=== PATIENT | female | born 1935 | race Caucasian/White ===

== ENCOUNTER 2020-02-24 13:24 | Outpatient (CLI) | payer OTHER, SELFPAY ==
--- NOTE | 2020-02-29 14:03 | WPDPFTINT ---
PFT Interpretation PFT Interpretation: DOS: 02/24/2020 REQUESTING: Dr. Conner REASON FOR TESTING: Amiodarone use PULMONARY FUNCTION TESTS Results are not reproducible. The patient was not able to exhale for a minimum of 6 seconds on 3 attempts. Spirometry: FEV1 is 105%, normal. FVC is 86%, normal. FEV1% is normal. No bronchodilator was given. Lung volumes: TLC 72% consistent with mild restriction. RV is 56%. There is no air trapping. Normal airway resistance. Diffusion: DLCO is 37% severely decreased. Flow volume loop: Unremarkable. IMPRESSION: Normal spirometry. Mild restrictive pattern based on decreased total lung capacity. Severe diffusion impairment which is the most significant finding. There is no prior test for comparison. Amiodarone can be associated with changes in pulmonary function. Clinical correlation is advised. Alyssa Lemos MD
== END 2020-02-24 13:25 | disposition home or self-care (01) ==
PROVIDERS: PCP Internal Medicine; Visit Provider Internal Medicine Cardiovascular Disease
DX: Z79.899 Other long term (current) drug therapy (principal)
CPT/HCPCS: 94375; 94726; 94729

== ENCOUNTER 2020-04-07 15:12 | Outpatient (CLI) | payer OTHER, SELFPAY ==
--- NOTE | ~2020-04-07 | CT_ITS ---
EXAMINATION: CT chest wo con DATE: 04/07/2020 15:50 INDICATION: Shortness of breath TECHNIQUE: Computed tomography (CT) of the chest was performed without intravenous contrast. The dose -length product was 214.88 mGy-cm. Automated exposure control and iterative reconstruction technique were employed. COMPARISON: Chest x-ray dated 11/19/2017 FINDINGS: Prominent bilateral rosanne, likely enlarged pulmonary arteries, although lymphadenopathy is n ot excluded. Borderline heart size. No significant pleural or pericardial effusion. There is cirrhosi s of the liver with ascites in the upper abdomen. There are nonobstructing right renal stones. There is diffuse atherosclerosis of the aorta and coronary arteries. There are in numerable groundglass and some solid nodules in both lungs with more focal areas of parenchymal consolidation in the right mid dle lobe, lingula and lower lobes, right greater than left. There is bronchiectasis of the lower lobe s. No endobronchial lesions. IMPRESSION: 1. Extensive patchy consolidation of the mid and lower lungs with multiple areas of groundglass and s ub-solid nodularity particularly in the upper lobes. These findings are most likely infectious/inflam matory, although due to the extent of parenchymal abnormality, underlying malignancy is not excluded. 2: Enlarged pulmonary arteries, consistent with pulmonary arterial hypertension. Cannot exclude lymph adenopathy without contrast. 3: Cirrhosis with ascites. 4: Nonobstructing right nephrolithiasis. Reviewed, dictated and finalized at location A. IMPRESSION: 1. Extensive patchy consolidation of the mid and lower lungs with multiple area s of groundglass and sub-solid nodularity particularly in the upper lobes. Thes e findings are most likely infectious/inflammatory, although due to the extent of parenchymal abnormality, underlying malignancy is not excluded. 2: Enlarged pulmonary arteries, consistent with pulmonary arterial hypertension . Cannot exclude lymphadenopathy without contrast. 3: Cirrhosis with ascites. 4: Nonobstructing right nephrolithiasis.
== END 2020-04-07 15:13 | disposition home or self-care (01) ==
LOC: ANHIMG 15:17
PROVIDERS: PCP Internal Medicine; Visit Provider Nurse Practitioner
DX: R06.02 Shortness of breath (principal); R91.8 Other nonspecific abnormal finding of lung field; N20.0 Calculus of kidney; K74.69 Other cirrhosis of liver
CPT/HCPCS: 71250

== ENCOUNTER 2020-05-09 10:59 | Outpatient (CLI) | payer OTHER, SELFPAY ==
[2020-05-09 14:08] LABS: Iron 107 ug/dL (37-170)
[2020-05-09 14:18] LABS: Percent Iron Saturation 31 % (20-50)
[2020-05-13 15:37] LABS: Ceruloplasmin 38 mg/dL (18-53)
[2020-05-16 15:05] LABS: Mitochondrial (M2) Ab (IgG) <=20.0 U (<=20.0)
--- NOTE | 2020-05-18 15:02 | WPDSIXMINUTE ---
Six Minute Walk Six Minute Walk: DOS: 05/09/2020 REQUESTING: Dr. Chema Zuluaga REASON FOR TESTING: dyspnea on exertion SIX MINUTE WALK This test was conducted per ATS guidelines. The patient walked using a cane. The initial saturation was 94% and initial pulse was 57. Saturation dropped to 89% at 200 feet with the pulse 80. At the end of the walk, by the end of the the walk. After recovery, the saturation increase to 97%. Ending pulse was 66. Distance walked 550 feet / 168 m. IMPRESSION: This walk study showed desaturation to 89% without gilma hypoxemia. She does not require supplemental oxygen with exertion. Normal walking distance for this age has not been standardized.
== END 2020-05-09 11:00 | disposition home or self-care (01) ==
LOC: ANHPFT 11:01
PROVIDERS: PCP Internal Medicine; Visit Provider Internal Medicine Gastroenterology
DX: R06.00 Dyspnea, unspecified (principal); K74.60 Unspecified cirrhosis of liver; K76.0 Fatty (change of) liver, not elsewhere classified
CPT/HCPCS: 36415; 82104; 82390; 82728; 83520; 83540; 83550; 86038; 94618

== ENCOUNTER 2020-05-30 01:19 | Outpatient (CLI) | payer OTHER, SELFPAY ==
[2020-05-30 17:41] LABS: SARS-CoV-2 RNA PCR Negative
== END 2020-05-30 01:20 | disposition home or self-care (01) ==
LOC: ANHCOVIDDT 01:20
PROVIDERS: PCP Internal Medicine; Visit Provider Internal Medicine Gastroenterology
DX: Z01.812 Encounter for preprocedural laboratory examination (principal); Z20.828 Contact with and (suspected) exposure to other viral communicable diseases
CPT/HCPCS: 87635; C9803; U0003

== ENCOUNTER 2020-06-01 01:39 | Day surgery (SDC) | payer OTHER, SELFPAY ==
[2020-05-25 14:34] VITALS: BMI 30.9
[2020-06-01] MEDS: LACTATED RINGERS 1,000 ML 150 ML IV CONT (11:11)
[2020-06-01 11:15] VITALS: BP 133/54; PULSE 51; RESP 20; TEMP 36.6; O2SAT 98
--- NOTE | 2020-06-01 11:31 | WPDANESEPPF ---
Anes - Initial Pre Proc Eval Procedure: Operation Date: 06/01/20 12:00 Proposed Procedures p Esophagogastroduodenoscopy - Chema Zuluaga MD Date/Time: 06/01/20 11:31 Surgeon: Chema Zuluaga MD Pre Op Diagnosis: Cirrhosis of Liver Patient Data Age: 85 Gender: F Height: 5 ft 2 in Weight: 72.3 kg Last Vital Signs Temp 97.9 F 06/01/20 11:15 Pulse 51 L 06/01/20 11:15 Resp 20 06/01/20 11:15 BP 133/54 L 06/01/20 11:15 Pulse Ox 98 06/01/20 11:15 Allergies Allergy/AdvReac Type Severity Reaction Status Date / Time No Known Allergies Allergy Verified 06/01/20 10:57 Home Medications Medication Instructions Recorded Confirmed Type ascorbic acid (vitamin C) 1,000 mg 1 gm PO DAILY 05/05/20 05/25/20 History tablet biotin 5,000 mcg disintegrating 10,000 mcg PO DAILY 05/05/20 05/25/20 History tablet calcium carbonate 600 mg calcium 600 mg PO DAILY 05/05/20 05/25/20 History (1,500 mg) tablet cyanocobalamin (vitamin B-12) 50 50 mcg PO DAILY 05/05/20 05/25/20 History mcg tablet furosemide 20 mg tablet 20 mg PO QAM #30 tablet 05/05/20 05/25/20 Rx multivitamin 1 tablet PO DAILY 05/05/20 05/25/20 History spironolactone 50 mg tablet 50 mg PO DAILY #30 tablet 05/05/20 05/05/20 Rx diltiazem HCl 240 mg capsule,24 240 mg PO DAILY #90 cap 05/19/20 05/25/20 Rx hr,extended release cefdinir 500 mg PO Q12H 05/25/20 05/25/20 History amoxicillin 875 mg-potassium 1 tablet PO Q12H #14 tablet 05/26/20 06/01/20 Rx clavulanate 125 mg tablet doxycycline hyclate 100 mg tablet 100 mg PO Q12H #14 tablet 05/26/20 06/01/20 Rx prednisone 5 mg tablet 5 mg PO DAILY #90 tablet 05/26/20 05/26/20 Rx warfarin 1 mg tablet 1 mg PO .twice a week #30 tablet 05/31/20 Rx warfarin 6 mg tablet See Rx Instructions PO DAILY #60 05/31/20 Rx tablet Patient hx anesthesia problems: none Family hx anesthesia problems: none PMFSH Past Medical History Medical History (Updated 06/01/20 @ 11:30 by Neel Chaves MD) Atrial fibrillation, chronic Chronic kidney disease, stage 3 (moderate) Essential (primary) hypertension Fatty liver Mixed hyperlipidemia Social History Social History Smoking status: Never smoker Alcohol intake: never Substance use: never Substance use type: does not use Living arrangements: with family Gender identity (if verbalized by the patient): Female Spiritual care concerns: No Anes - Eval Final PreProcedure Day of Procedure 06/01/20 11:31 Patient weight: obese Heart: regular rate and rhythm Lungs: clear to auscultation Airway: Mallampati scale class II Neurological: alert and oriented Last oral intake: >/= 8 hours ASA classification: III Emergent: no Anesthetic plan: proceed Anesthesia type and monitoring: general GIVS and standard monitoring Informed Consent: The patient's anesthetic plan and its attendant risks and benefits were discussed with the patient/family/POA. Questions were solicited and answers provided to the satisfaction of the patient/family/POA.
--- NOTE | 2020-06-01 11:31 | WPDHPUPDATE1 ---
History and Physical Update Update Date/Time: 06/01/20 11:31 History and Physical has been reviewed, including an updated exam of the patient. There are NO changes in the patient's condition. Risks, benefits, and alternatives have been discussed and questions answered. Patient agrees to proceed with procedure.
[2020-06-01 12:03] LABS: INR 2.1; Prothrombin Time 22.8 Seconds (11.1-14.7)
[2020-06-01 12:43] VITALS: BP 125/55; PULSE 47; RESP 21; O2SAT 100
[2020-06-01 12:53] VITALS: BP 125/53; PULSE 47; RESP 25; O2SAT 100
[2020-06-01 13:03] VITALS: BP 135/63; PULSE 48; RESP 17; O2SAT 98
== END 2020-06-01 13:45 | disposition home or self-care (01) ==
PROVIDERS: PCP Internal Medicine; Visit Provider Internal Medicine Gastroenterology
PROC: 0DJ08ZZ Inspection of Upper Intestinal Tract, Via Natural or Artificial Opening Endoscopic (ICD-10-PCS; CPT 43235; principal; 2020-06-01 12:00)
DX: K74.60 Unspecified cirrhosis of liver (principal); I85.00 Esophageal varices without bleeding; K44.9 Diaphragmatic hernia without obstruction or gangrene; K29.70 Gastritis, unspecified, without bleeding; I48.20 Chronic atrial fibrillation, unspecified; I12.9 Hypertensive chronic kidney disease with stage 1 through stage 4 chronic kidney disease, or unspecified chronic kidney disease; N18.30 Chronic kidney disease, stage 3 unspecified; E78.2 Mixed hyperlipidemia; Z79.01 Long term (current) use of anticoagulants; E66.9 Obesity, unspecified; Z68.29 Body mass index [BMI] 29.0-29.9, adult
CPT/HCPCS: 43235; 36415; 85610; J2704; J7120

== ENCOUNTER 2020-07-18 08:54 | Outpatient (CLI) | payer OTHER, SELFPAY ==
--- NOTE | ~2020-07-18 | CT_ITS ---
EXAMINATION: CT chest wo con DATE: 07/18/2020 09:55 INDICATION: Pneumonia and shortness of breath TECHNIQUE: Computed tomography (CT) of the chest was performed without intravenous contrast. The dose -length product (DLP) was 145.62 mGy-cm. Automated exposure control and iterative reconstruction tech nique were employed. COMPARISON: 04/07/2020 FINDINGS: Patchy airspace opacities of the mid and lower lung zones persist with improvement. There a re patchy groundglass opacities throughout the lungs which persists without significant change. Bronc hiectasis is noted in the lower lobes. There is no pleural effusion or pneumothorax. Cardiomegaly is noted. There is enlargement of the main and central pulmonary arteries, consistent with pulmonary hyp ertension. Calcified coronary artery atherosclerosis is present. No pathologically enlarged thoracic lymph nodes are identified. There is nodularity of the liver surface, consistent with cirrhosis. A tr clarice volume of upper abdominal ascites is noted. There is moderate thoracic spondylosis. IMPRESSION: 1. Diffuse patchy groundglass and airspace opacities with overall slight improvement, likely combinat ion of infection/inflammation and mild pulmonary edema. 2. Cirrhosis. 3. Cardiomegaly. Reviewed, dictated and finalized at location A. ING PROGRAM COORDINATOR IMPRESSION: 1. Diffuse patchy groundglass and airspace opacities with overall slight improv ement, likely combination of infection/inflammation and mild pulmonary edema. 2. Cirrhosis. 3. Cardiomegaly.
--- NOTE | ~2020-07-18 | US_ITS ---
EXAMINATION: US abdomen complete DATE: 07/18/2020 09:53 INDICATION: Cirrhosis TECHNIQUE: Multiple grayscale and Doppler ultrasound images of the abdomen were obtained. COMPARISON: 05/14/2016 FINDINGS: The pancreatic head and body are normal in appearance. The pancreatic tail is not visualized. Liver has normal echogenicity but with nodular surface consistent with cirrhosis. No liver lesion identifie d. No intrahepatic biliary duct dilation suspected. Portal venous flow was seen in the hepatopetal, n ormal direction and has normal Doppler waveform. The gallbladder is normal in appearance. There is n o cholelithiasis. The common bile duct measures 4-5 mm in the proximal duct tapering to 2 mm the mid to distal duct, which is normal. Sonographic Escobar sign was reported as negative by the inspector rag sorting. The visualized proximal aorta and inferior vena cava are normal. Splenomegaly measuring 14.3 cm in m aximal length. There is normal renal contour and echogenicity bilaterally. The right kidney measures 10.4 x 4.5 x 6.0 cm and the left 9.7 x 3.4 x 4.0 cm. There are no focal renal lesions identified. T here is no hydronephrosis. IMPRESSION: 1. Nodular liver surface consistent with cirrhosis. 2. Splenomegaly measuring 14.3 cm in length suggestive of portal venous hypertension but with normal flow in the main portal vein. Reviewed, dictated and finalized at location A. RE SKATER IMPRESSION: 1. Nodular liver surface consistent with cirrhosis. 2. Splenomegaly measuring 14.3 cm in length suggestive of portal venous hyperte nsion but with normal flow in the main portal vein.
== END 2020-07-18 08:55 | disposition home or self-care (01) ==
PROVIDERS: PCP Internal Medicine; Visit Provider Internal Medicine Gastroenterology
DX: J18.9 Pneumonia, unspecified organism (principal); K74.60 Unspecified cirrhosis of liver; K76.0 Fatty (change of) liver, not elsewhere classified; I25.10 Atherosclerotic heart disease of native coronary artery without angina pectoris; M47.814 Spondylosis without myelopathy or radiculopathy, thoracic region; I51.7 Cardiomegaly; R16.1 Splenomegaly, not elsewhere classified
CPT/HCPCS: 71250; 76700

== ENCOUNTER 2020-10-13 09:41 | Outpatient (CLI) | payer OTHER, SELFPAY ==
--- NOTE | ~2020-10-13 | CT_ITS ---
EXAMINATION: CT diagnostic chest wo con EXAM DATE: 10/13/2020 10:02 INDICATION: J18.9 - Pneumonia, unspecified organism. TECHNIQUE: Spiral CT of the chest without contrast. Axial, coronal and sagittal images were reviewe d. Coronal maximum intensity pixel images of chest reviewed. The dose-length product (DLP) for this examination was 168.63 mGy-cm. The exposure was tailored according to patient size (auto mA exposur e control), and iterative reconstruction (ASIR) was used as additional dose reduction technique. Comp arison is made to prior examination from 07/18/2020, 04/07/2020. FINDINGS: There is been slight interval improvement in the amount of groundglass opacities with inte rlobular septal thickening, compared to last 2 examinations. There is still moderate amount of scatte red opacities with right lower lobe predominant differential diagnosis includes hypersensitivity pneu monitis or nonspecific interstitial pneumonitis (NSIP) pattern interstitial lung disease which can be caused by collagen vascular disease, medications/drugs, prior viral infection (COVID-19), or can be idiopathic. There are no pleural or pericardial effusions. Tracheobronchial tree is patent. There is no media stinal, hilar or axillary lymphadenopathy. There is no pneumothorax. Mild cardiomegaly. There is moderate coronary arterial calcification, arterial sclerosis. There are dense mitral annular calcifi cations. Nodular liver contour and trace perihepatic ascites, could indicate cirrhosis. Scattered ri ght kidney stones up to 5 mm. There is moderate thoracic spondylosis without osteoblastic or osteoly tic lesions identified. IMPRESSION: 1. Moderate amount of scattered groundglass opacities and interlobular septal thickening, slight int erval improvement. Consider hypersensitivity pneumonitis or nonspecific interstitial pneumonitis (NS IP) pattern interstitial lung disease. 2. Right nephrolithiasis. 3. Cirrhosis. Reviewed, dictated and finalized at location A. SEPARATOR IMPRESSION: 1. Moderate amount of scattered groundglass opacities and interlobular septal thickening, slight interval improvement. Consider hypersensitivity pneumonitis or nonspecific interstitial pneumonitis (NSIP) pattern interstitial lung disea se. 2. Right nephrolithiasis. 3. Cirrhosis.
== END 2020-10-13 09:42 | disposition home or self-care (01) ==
PROVIDERS: PCP Internal Medicine; Visit Provider Nurse Practitioner Family
DX: J18.9 Pneumonia, unspecified organism (principal); N20.0 Calculus of kidney; K74.69 Other cirrhosis of liver
CPT/HCPCS: 71250

== ENCOUNTER → 2020-11-10 06:55 | Outpatient (CLI) | payer OTHER, SELFPAY ==
[2020-11-11 19:23] LABS: SARS-CoV-2 RNA PCR Negative
== END ==
PROVIDERS: PCP Internal Medicine; Visit Provider Nurse Practitioner
DX: Z20.822 Contact with and (suspected) exposure to COVID-19 (principal)
CPT/HCPCS: C9803; U0003; U0005

== ENCOUNTER → 2020-12-01 00:21 | Outpatient (CLI) | payer OTHER, SELFPAY ==
[2020-12-01 16:56] LABS: SARS-CoV-2 RNA PCR Negative
== END ==
PROVIDERS: PCP Internal Medicine; Visit Provider Internal Medicine Critical Care Medicine
DX: Z01.812 Encounter for preprocedural laboratory examination (principal); Z20.822 Contact with and (suspected) exposure to COVID-19
CPT/HCPCS: C9803; U0003; U0005

== ENCOUNTER 2020-12-02 01:50 | Day surgery (SDC) | payer OTHER, SELFPAY ==
[2020-11-30 10:10] VITALS: BMI 30.2
[2020-12-02] VITALS (8 sets, daily range): BP systolic 112–138; BP diastolic 57–78; PULSE 51–66; RESP 15–23; TEMP 36.2; O2SAT 96–100; BMI 29.9
--- NOTE | ~2020-12-02 | XR_ITS ---
EXAMINATION: XR chest 1V portable DATE: 12/02/2020 14:28 INDICATION: Diffuse lung disease status post bronchoscopy. TECHNIQUE: A single frontal view of the chest was obtained. COMPARISON: Chest CT 10/13/2020, 04/07/2020, chest 2 views 11/19/2017 FINDINGS: The lung volumes are normal. There is a diffuse coarse interstitial pattern in the lungs. N o pleural effusion or pneumothorax. Cardiomegaly is noted. IMPRESSION: 1. Chronic interstitial lung disease. 2. Cardiomegaly. Reviewed, dictated and finalized at location B.
[2020-12-02] MEDS: LACTATED RINGERS 1,000 ML 150 ML IV CONT (11:28)
--- NOTE | 2020-12-02 11:33 | PM.IMHP ---
H&P: HPI History of Present Illness Date/Time: 12/02/20 11:33 Chief Complaint: Productive cough and dyspnea Narrative: This is a very pleasant 85-year-old female who is here today to undergo a bronchoscopy with BAL and transbronchial biopsies. She has bilateral atypical infiltrates which are persistent with ongoing productive cough and dyspnea. Please you my previous note for details. The patient is on warfarin which was held on Saturday11/30/2020. Her INR has been drawn and is pending. If her INR is greater than 1.5 she may need FFP to minimize the risk of bleeding with transbronchial biopsies. Review of Systems Review of Systems: All systems reviewed & are unremarkable except as noted in HPI and below PMFSH Past Medical History Medical History Atrial fibrillation, chronic Chronic kidney disease, stage 3 (moderate) Esophageal varices Essential (primary) hypertension Fatty liver Hepatic cirrhosis Mixed hyperlipidemia Social History Social History Smoking status: Never smoker Alcohol intake: never Substance use: never Substance use type: does not use Living arrangements: with family Gender identity (if verbalized by the patient): Female Spiritual care concerns: No Meds Home Medications and Allergies Home Medications Medication Instructions Recorded Confirmed Type ascorbic acid (vitamin C) 1,000 mg 1 gm PO DAILY 05/05/20 11/30/20 History tablet calcium carbonate 600 mg calcium 600 mg PO DAILY 05/05/20 11/30/20 History (1,500 mg) tablet cyanocobalamin (vitamin B-12) 50 50 mcg PO DAILY 05/05/20 11/30/20 History mcg tablet multivitamin 1 tablet PO DAILY 05/05/20 11/30/20 History tramadol 50 mg tablet 50 mg PO Q6H PRN #90 tablet 06/24/20 11/30/20 Rx albuterol sulfate 90 mcg/actuation 2 inh INHALATION Q6H PRN #8.5 g 07/25/20 11/30/20 Rx aerosol inhaler furosemide 20 mg tablet 20 mg PO QAM #30 tablet 10/12/20 11/30/20 Rx spironolactone 50 mg tablet 50 mg PO DAILY #30 tablet 10/12/20 11/30/20 Rx warfarin 6 mg tablet See Rx Instructions .ROUTE 11/18/20 11/30/20 Rx .COMPLEX #60 tablet propranolol 10 mg tablet See Rx Instructions .ROUTE 11/22/20 11/30/20 Rx .COMPLEX #60 tablet diltiazem HCl [Cardizem CD] 120 mg PO DAILY 11/30/20 11/30/20 History Allergies Allergy/AdvReac Type Severity Reaction Status Date / Time No Known Allergies Allergy Verified 11/30/20 10:06 Vital Signs Vital Signs - 24 hr 12/02/20 11:30 Temperature 36.2 C L Pulse Rate 57 L Respiratory Rate 20 Blood Pressure 138/68 Exam Const: General: cooperative, healthy appearing, comfortable, no acute distress, well developed, alert, awake and Physically active HENMT: Head: normal to inspection, normocephalic and atraumatic Eyes: General: appearance normal, both eyes and all related structures Neck: Neck: trachea midline and supple Resp: Effort & Inspection: normal respiratory effort Auscultation: crackles and diminished lung sounds Cardio: Jugular venous distension: no JVD Rate: regular rate Rhythm: regular rhythm Heart sounds: S1 normal heart sound present and S2 normal heart sound present GI: Inspection: normal to inspection Auscultation: normal bowel sounds Skin: General skin exam: no rashes or lesions noted Neuro: General: oriented to person, oriented to place, oriented to time and patient oriented x3 Extrem: General: no clubbing, cyanosis or edema Psych: Appearance: grossly normal and well kempt Mental Status: mental status grossly normal Assessment and Plan Assessment and plan (1) Atypical pneumonia: Code(s): J18.9 - Pneumonia, unspecified organism Status: Acute Assessment and Plan: A bronchoscopy will be performed today with planned BAL and transbronchial biopsies for gram stain and culture, AFB, fungal stains and culture, PJP, Mycoplasma, Legi
[2020-12-02 11:42] LABS: INR 1.6; Prothrombin Time 19.2 Seconds (11.1-14.7)
--- NOTE | 2020-12-02 12:00 | WPDANESEPPF ---
Anes - Initial Pre Proc Eval Procedure: Operation Date: 12/02/20 12:30 Proposed Procedures p Bronchoscopy - Nessa Kamara MD Date/Time: 12/02/20 12:00 Surgeon: Nessa aKmara MD Pre Op Diagnosis: Atypical Pneumonia Patient Data Age: 85 Gender: F Height: 5 ft 2 in Weight: 74.3 kg Last Vital Signs Temp 97.1 F L 12/02/20 11:30 Pulse 57 L 12/02/20 11:30 Resp 20 12/02/20 11:30 BP 138/68 12/02/20 11:30 Allergies Allergy/AdvReac Type Severity Reaction Status Date / Time No Known Allergies Allergy Verified 11/30/20 10:06 Home Medications Medication Instructions Recorded Confirmed Type ascorbic acid (vitamin C) 1,000 mg 1 gm PO DAILY 05/05/20 11/30/20 History tablet calcium carbonate 600 mg calcium 600 mg PO DAILY 05/05/20 11/30/20 History (1,500 mg) tablet cyanocobalamin (vitamin B-12) 50 50 mcg PO DAILY 05/05/20 11/30/20 History mcg tablet multivitamin 1 tablet PO DAILY 05/05/20 11/30/20 History tramadol 50 mg tablet 50 mg PO Q6H PRN #90 tablet 06/24/20 11/30/20 Rx albuterol sulfate 90 mcg/actuation 2 inh INHALATION Q6H PRN #8.5 g 07/25/20 11/30/20 Rx aerosol inhaler furosemide 20 mg tablet 20 mg PO QAM #30 tablet 10/12/20 11/30/20 Rx spironolactone 50 mg tablet 50 mg PO DAILY #30 tablet 10/12/20 11/30/20 Rx warfarin 6 mg tablet See Rx Instructions .ROUTE 11/18/20 11/30/20 Rx .COMPLEX #60 tablet propranolol 10 mg tablet See Rx Instructions .ROUTE 11/22/20 11/30/20 Rx .COMPLEX #60 tablet diltiazem HCl [Cardizem CD] 120 mg PO DAILY 11/30/20 11/30/20 History Laboratory Tests 12/02/20 11:14 PT 19.2 Seconds H Seconds (11.1-14.7) INR 1.6 Patient hx anesthesia problems: none Family hx anesthesia problems: none PMFSH Past Medical History Medical History Atrial fibrillation, chronic Chronic kidney disease, stage 3 (moderate) Esophageal varices Essential (primary) hypertension Fatty liver Hepatic cirrhosis Mixed hyperlipidemia Social History Social History Smoking status: Never smoker Alcohol intake: never Substance use: never Substance use type: does not use Living arrangements: with family Gender identity (if verbalized by the patient): Female Spiritual care concerns: No Anes - Eval Final PreProcedure Day of Procedure 12/02/20 12:00 Patient weight: normal Heart: regular rate and rhythm Lungs: clear to auscultation Airway: Mallampati scale class II Neurological: alert and oriented Last oral intake: >/= 8 hours ASA classification: III Emergent: no Anesthetic plan: proceed Anesthesia type and monitoring: general ETT (OR LMA) Informed Consent: The patient's anesthetic plan and its attendant risks and benefits were discussed with the patient/family/POA. Questions were solicited and answers provided to the satisfaction of the patient/family/POA.
[2020-12-02] MEDS: SODIUM CHLORIDE 0.9% IV 500 ML BAG 60 ML IRRIGATION (13:55)
--- NOTE | 2020-12-02 14:01 | SUR.OPER ---
BAL WITH 60ML NORMAL SALINE WITH 15ML RETURN
--- NOTE | 2020-12-02 14:42 | SUR.PHASEII ---
Reviewed Chest xray report, no pneumothorax noted.
[2020-12-02 15:26] LABS: Appearance Bronchial Fluid Cloudy; Color Bronchial Fluid Red; Eosinophils Bronchial Fluid 4 %; Lymphocytes Bronchial Fluid 30 %; Macrophages Bronchial Fluid 11; Neutrophils Bronchial Fluid 6 %; Other Cells Bronchial Fluid 49 %; Source Bronchial Fluid Bronchial Lavage
[2020-12-02 15:44] LABS: Monocytes Bronchial Fluid 0 %
[2020-12-06 15:19] LABS: Blastomyces Antibody Negative (Negative)
== END 2020-12-02 15:25 | disposition home or self-care (01) ==
PROVIDERS: PCP Internal Medicine; Visit Provider Internal Medicine Critical Care Medicine
PROC: 0BJ08ZZ Inspection of Tracheobronchial Tree, Via Natural or Artificial Opening Endoscopic (ICD-10-PCS; CPT 31622; principal; 2020-12-02 12:30)
DX: J18.9 Pneumonia, unspecified organism (principal); J84.10 Pulmonary fibrosis, unspecified; R05 Cough; I12.9 Hypertensive chronic kidney disease with stage 1 through stage 4 chronic kidney disease, or unspecified chronic kidney disease; R06.00 Dyspnea, unspecified; N18.30 Chronic kidney disease, stage 3 unspecified; K74.60 Unspecified cirrhosis of liver; K76.0 Fatty (change of) liver, not elsewhere classified; E78.2 Mixed hyperlipidemia; Z79.01 Long term (current) use of anticoagulants; Z79.51 Long term (current) use of inhaled steroids; Z20.822 Contact with and (suspected) exposure to COVID-19
CPT/HCPCS: 31624; 31628; 36415; 71045; 85610; 85999; 86612; 87015; 87070; 87102; 87116; 87205; 87206; 87279; 87281; 87385; 87486; 87581; 88104; 88108; 88305; C9803; J0330; J2704; J7040; J7120; U0003; U0005

== ENCOUNTER → 2020-12-06 12:24 | Outpatient (CLI) | payer OTHER, SELFPAY ==
--- NOTE | ~2020-12-06 | US_ITS ---
US right upper quadrant INDICATION: Cirrhosis of the liver PROCEDURE: Realtime right upper abdominal ultrasound. COMPARISON: No prior studies for comparison. FINDINGS: The pancreas is normal without focal mass or pancreatic ductal dilation. Liver echotexture is normal without focal mass or intrahepatic biliary dilatation. There is normal directional flow i n the portal vein. The gallbladder is normal without stones, gallbladder wall thickening or pericholecystic fluid. Comm on bile duct upper normal measures 7 mm. No sonographic Escobar's sign. IMPRESSION: 1: Mildly prominent common bile duct measuring 7 mm which is upper normal. Otherwise, [facility]able [facility].. Reviewed, dictated and finalized at location B. IMPRESSION: 1: Mildly prominent common bile duct measuring 7 mm which is upper normal. Othe rwise, unremarkable limited abdominal ultrasound..
== END ==
PROVIDERS: PCP Internal Medicine; Visit Provider Internal Medicine Gastroenterology
DX: K74.60 Unspecified cirrhosis of liver (principal); K76.0 Fatty (change of) liver, not elsewhere classified
CPT/HCPCS: 76705

== ENCOUNTER → 2021-10-09 08:04 | Outpatient (CLI) | payer OTHER, SELFPAY ==
[2021-10-09 11:46] LABS: Influenza A QL RT-PCR Negative (Negative); Influenza B QL RT-PCR Negative (Negative); SARS-CoV-2 RNA PCR Negative
== END ==
PROVIDERS: PCP Internal Medicine; Visit Provider Nurse Practitioner
DX: R68.89 Other general symptoms and signs (principal); Z20.822 Contact with and (suspected) exposure to COVID-19
CPT/HCPCS: 87502; C9803; U0003; U0005

== ENCOUNTER 2021-10-30 12:14 | Outpatient (CLI) | payer OTHER, SELFPAY ==
--- NOTE | ~2021-10-30 | CT_ITS ---
EXAMINATION: CT diagnostic chest wo con DATE: 10/30/2021 14:16 INDICATION: Interstitial lung disease, shortness of breath TECHNIQUE: Computed tomography (CT) of the chest was performed without intravenous contrast. The dose -length product (DLP) was 179.11 mGy-cm. Automated exposure control and iterative reconstruction tech [employer] were employed. COMPARISON: 10/13/2020 FINDINGS: Patchy groundglass airspace opacities persist in the mid and lower lung zones without signi ficant change. There is no pleural effusion or pneumothorax. No pathologically enlarged thoracic lymp h nodes are identified. The heart size is normal. Calcified coronary artery atherosclerosis is noted. There is bronchiectasis of the lower lobes. Nodularity of the liver surface is consistent with cirrh osis. Stones are present in the nondistended gallbladder. There is right nephrolithiasis. There is mo derate thoracic spondylosis. IMPRESSION: 1. Chronic groundglass opacities of the mid and lower lung zones which could reflect chronic infectio n versus chronic interstitial lung disease. Reviewed, dictated and finalized at location B. IMPRESSION: 1. Chronic groundglass opacities of the mid and lower lung zones which could re flect chronic infection versus chronic interstitial lung disease.
--- NOTE | 2021-10-30 16:27 | WPDPFTINT ---
PFT Procedure Performed PFT Procedure Performed Spirometry with Pre/Post Bronchodilator Plethysmography (Lung Vol) Diffusing Cap (DLCO) Flow Vol Loop PFT Interpretation This is a pulmonary function test with pre and post-bronchodilator spirometry, plethysmography and diffusing capacity. The test was performed and results interpreted in accordance with the 2019 and 2005 ATS/ERS Task Force guidelines respectively using the Global Lung Function Initiative-2012 reference equations. Patient demonstrated good effort and cooperation. Reproducibility criteria were met. The quality of the pre bronchodilator spirometry maneuver was Grade A and post bronchodilator spirometry maneuver was Grade B. Findings: Spirometry: The contour the inspiratory and expiratory flow tracing are normal. The pre bronchodilator FVC is 2.13 L, 95% predicted. The pre bronchodilator FEV1 is 1.71 L, 100% predicted. The FEV1: FVC ratio was 81%. The post bronchodilator FVC is 2.12 L, representing no change. The post bronchodilator FEV1 is 1.78 L, representing a 4% increase. The post bronchodilator FEV1: FVC ratio was 84%. Plethysmography: The total lung capacity is 3.52 L, 74% predicted. The functional residual capacity is 2.15 L, 79% predicted. The residual volume is 1.39 L, 59% predicted. Diffusing capacity: The diffusing capacity unadjusted for hemoglobin and carboxyhemoglobin is 7.5, 41% predicted. The diffusing capacity adjusted for alveolar volume is 2.55, 61% predicted. Impression: There is a mild restrictive ventilatory abnormality with a normal FEV1. The spirometry is normal without evidence of an obstructive abnormality. There is no significant improvement after inhaling a single dose of albuterol. The diffusing capacity unadjusted for hemoglobin and carboxyhemoglobin is moderately decreased and remains mildly decreased when adjusted for alveolar volume. There are no prior studies for comparison
--- NOTE | 2021-10-30 16:31 | WPDSIXMINUTE ---
Six Minute Walk Procedure Procedure Performed Pulmonary Stress Test (6 min walk) Six Minute Walk This is a 6 minute walk test. The test was performed and interpreted in accordance with the 2014 ERS/ATS task force guidelines. Of note the patient used a wheeled walker for the test. Findings: The patient's resting room air oxygen saturation measured by pulse oximetry was 92% and heart rate was 61 bpm. Patient ambulated for 213 meters and oxygen saturation remained 91 to 94%. Heart rate at the end of the study was 76 bpm. The patient did not qualify for supplemental oxygen at rest or with ambulation. There are no prior studies for comparison.
== END 2021-10-30 12:15 | disposition home or self-care (01) ==
PROVIDERS: PCP Internal Medicine; Visit Provider Internal Medicine Pulmonary Disease
DX: J84.9 Interstitial pulmonary disease, unspecified (principal); I25.10 Atherosclerotic heart disease of native coronary artery without angina pectoris; M47.814 Spondylosis without myelopathy or radiculopathy, thoracic region
CPT/HCPCS: 71250; 94060; 94618; 94726; 94729

== ENCOUNTER 2022-06-07 12:35 | Outpatient (CLI) | payer OTHER, SELFPAY ==
--- NOTE | ~2022-06-07 | CT_ITS ---
EXAMINATION: CT chest high resolution wo fl DATE: 06/07/2022 13:12 INDICATION: Interstitial pulmonary disease, shortness of breath TECHNIQUE: Computed tomography (CT) of the chest was performed without intravenous contrast. The dose -length product (DLP) was 217.07 mGy-cm. Automated exposure control and iterative reconstruction tech [employer] were employed. COMPARISON: 10/30/2021 FINDINGS: Again seen are patchy groundglass opacities in the mid and lower lung zone predominance wit hout significant change. No pleural effusion or pneumothorax. There is mild bronchiectasis in the low er lobes. No acute superimposed airspace opacities are identified. No pathologically enlarged thoraci c lymph nodes are identified. The heart size is normal. Calcified coronary artery atherosclerosis is noted. There is nodularity of the liver surface, consistent with cirrhosis. There is moderate thoraci c spondylosis. IMPRESSION: 1. Chronic lung disease without significant change, consistent with chronic infection and/or chronic interstitial lung disease. Reviewed, dictated and finalized at location A. IMPRESSION: 1. Chronic lung disease without significant change, consistent with chronic inf ection and/or chronic interstitial lung disease.
--- NOTE | 2022-06-07 17:04 | WPDPFTINT ---
PFT Procedure Performed PFT Procedure Performed Spirometry with Pre/Post Bronchodilator Plethysmography (Lung Vol) Diffusing Cap (DLCO) Flow Vol Loop PFT Interpretation This is a pulmonary function test with pre and post-bronchodilator spirometry, plethysmography and diffusing capacity. The test was performed and results interpreted in accordance with the 2019 and 2005 ATS/ERS Task Force guidelines respectively using the Global Lung Function Initiative-2012 reference equations. Patient demonstrated good effort and cooperation. Reproducibility criteria were met. The quality of the pre bronchodilator spirometry maneuver was Grade A and post bronchodilator spirometry maneuver was Grade A. Findings: Spirometry: The contour the expiratory flow tracing resembles a witch's hat . The contour the inspiratory flow tracing is normal. The pre bronchodilator FVC is 1.90 L, 85% predicted. The pre bronchodilator FEV1 is 1.63 L, 97% predicted. The pre bronchodilator FEV1: FVC ratio was 86%. The post bronchodilator FVC is 1.84 L, representing a 3% decrease. The post bronchodilator FEV1 is 1.49 L, representing an 8% decrease. The post bronchodilator of FEV1: FVC ratio was 81%. Plethysmography: The total lung capacity is 3.40 L, 72% predicted. The functional residual capacity is 1.80 L, 66% predicted. The residual volume is 1.50 L, 63% predicted. Diffusion capacity: The diffusing capacity unadjusted for hemoglobin and carboxyhemoglobin is 8.5, 47% predicted. The diffusing capacity adjusted for alveolar volume is 2.94, 71% predicted. In comparison to previous pulmonary function testing on 10/30/2021 the post bronchodilator FVC is decreased from 2.12 L to 1.84 L. The post bronchodilator FEV1 is decreased from 1.78 L to 1.49 L. The total lung capacity is unchanged from 3.52 L to 3.40 L. The functional residual capacity has decreased from 2.15 L to 1.80 L. The residual volume is unchanged from 1.39 L to 1.50 L. The diffusing capacity unadjusted for hemoglobin and carboxyhemoglobin is unchanged from 7.5 to 8.5. The diffusing capacity adjusted for alveolar volume is unchanged from 2.55 to 2.94. Impression: There is a mild restrictive ventilatory abnormality with a normal FEV1. The spirometry is normal without evidence of an obstructive abnormality. There is no significant improvement after inhaling a single dose of albuterol. The diffusing capacity unadjusted for hemoglobin and carboxyhemoglobin is moderately decreased and normalizes when adjusted for alveolar volume. in comparison to previous pulmonary function test on 10/30/2021 there has been a greater than anticipated time dependent decrease in the FVC, FEV1 and functional residual capacity with no change in the total lung capacity, residual volume or diffusing capacity. Clinical correlation is recommended.
== END 2022-06-07 12:36 | disposition home or self-care (01) ==
PROVIDERS: PCP Internal Medicine; Visit Provider Internal Medicine Pulmonary Disease
DX: J84.9 Interstitial pulmonary disease, unspecified (principal)
CPT/HCPCS: 71250; 94060; 94726; 94729

== ENCOUNTER 2022-06-29 08:55 | Outpatient (CLI) | payer OTHER, SELFPAY ==
--- NOTE | ~2022-06-29 | CT_ITS ---
EXAMINATION: CT abdomen pelvis wo/w con DATE: 06/29/2022 10:02 INDICATION: Hematuria TECHNIQUE: Computed tomography (CT) of the abdomen and pelvis was performed without intravenous contr ast. CT of the abdomen and pelvis was then performed with a total of 130 mL Omnipaque 350 intravenous contrast using a double-bolus technique for simultaneous opacification of the renal parenchyma and r enal collecting system. The dose-length product (DLP) was 1335.89 mGy-cm. Automated exposure control and iterative reconstruction technique were employed. COMPARISON: 06/07/2022 and 03/07/2010 FINDINGS: There are coarse reticular and groundglass opacities of the visualized lung bases, consiste nt with chronic infection and/or chronic interstitial lung disease. The heart size is normal. There i s nodularity of the liver surface. Punctate calcifications in an otherwise normal spleen likely repre sent healed granulomatous disease. The pancreas, gallbladder, and adrenal glands are normal. There ar e three nonobstructing stones of the right kidney upper pole which measure 3 mm. No stones are presen t in the left kidney, ureters, or the bladder. There is no hydronephrosis or hydroureter. No suspicio us renal or urothelial lesion identified. The ureters are not opacified in their entirety. There is a questionable stricture of the left ureteropelvic junction. There is calcified atherosclerosis of the aorta and many of the other arteries. No pathologically enlarged abdominal or pelvic lymph nodes are identified. There is no free intraperitoneal gas or evidence of bowel obstruction. Colonic diverticu losis is present without evidence of diverticulitis. There is severe lumbar spondylosis. There is ant egrade intramedullary carin and interlocking intratrochanteric screw fixation of the femurs. IMPRESSION: 1. Nonobstructing right nephrolithiasis. 2. Possible stricture at the left ureteropelvic junction. 3. Cirrhosis. 4. Chronic infection and/or chronic interstitial lung disease of the visualized lung bases. Reviewed, dictated and finalized at location F. COOK
--- NOTE | ~2022-06-29 | XR_ITS ---
XR abdomen/kub 1V 06/29/2022 09:31 INDICATION: Hematuria TECHNIQUE: KUB COMPARISON: None FINDINGS: Bowel gas pattern is normal. Moderate colonic fecal loading. There is no evidence of free a ir, mass, organomegaly, ascites or obstruction. No abnormal calculi are seen. The bones appear inta ct. There are dynamic compression screws in the femurs bilaterally. IMPRESSION: 1: No acute abdominal abnormality identified. Reviewed, dictated and finalized at location A. R [employer]
[2022-06-29 09:39] LABS: Estimated Glomerular Filt Rate 33
== END 2022-06-29 08:56 | disposition home or self-care (01) ==
PROVIDERS: PCP Internal Medicine; Visit Provider Nurse Practitioner Family
DX: R31.9 Hematuria, unspecified (principal); N20.0 Calculus of kidney; K76.0 Fatty (change of) liver, not elsewhere classified
CPT/HCPCS: 74018; 74178; Q9967

== ENCOUNTER 2022-08-15 11:25 | Outpatient (CLI) | payer OTHER, SELFPAY ==
[2022-08-15 18:25] LABS: INR 2.5; Partial Thromboplastin Time 40.5 SECONDS (22.3-36.8); Prothrombin Time 26.3 Seconds (11.1-14.7)
== END 2022-08-15 11:26 | disposition home or self-care (01) ==
PROVIDERS: PCP Family Medicine; Visit Provider Family Medicine
DX: I48.20 Chronic atrial fibrillation, unspecified (principal)
CPT/HCPCS: 36415; 85610; 85730

== ENCOUNTER 2022-09-14 12:22 | Outpatient (CLI) | payer OTHER, SELFPAY ==
--- NOTE | ~2022-09-14 | DEXA_ITS ---
Bone Density Report Name: SARAHI LOPEZ Age: 87 Sex: Female Ethnicity: White Date of : 1935 Indication: postmenopausal; screening for osteoporosis; height loss; prior fracture; hysterectomy; Referring Provider: HUGH GARCIA Study: Bone densitometry was performed. Exam Date: September 14, 2022 Accession number: [id number] Bone Density: Region BMD T-score Z-score Classification AP Spine(L1-L4) 0.786 -2.4 0.5 Osteopenia World Health Organization criteria for BMD impression classify patients as: Normal (T-score at or above -1.0), Osteopenia (T-score between -1.0 and -2.5), or Osteoporosis (T-score at or below -2.5). Clinical Information Provided by Patient: Have had a previous hip or vertebral fracture Has had a low trauma fracture Has used the following medications: Vitamin D, Calcium Has the following medical conditions: Hysterectomy Patient maximum height was 66 Menopause Age: 56 No regular weight bearing exercise Does not regularly consume dairy products Onset of menses at age 16 Number of children 3 Impression: The patient has low bone mass, based on the Total Spine T-score. The patient has risk factors, including: previous fracture. Discussion: INCREASED RISK OF FRACTURE DUE TO HISTORY OF FRACTURE. The patient's previous fracture puts the patient at high risk of a future fracture. In untreated patients, the risk of osteoporotic fracture increases approximately two-fold for each 1.0 SD decrease in T-score. Low bone density is not the only risk factor for fracture; also consider factors such as patient's age, frailty or poor health, risk of falling, risk of injury, previous osteoporotic fracture, family history of osteoporosis, cigarette smoking, low body weight, etc. Not everyone with a low trauma fracture has osteoporosis; osteomalacia and other metabolic bone disorders should also be considered. Patients who have osteoporosis should be evaluated for specific diseases and conditions (secondary causes) that may cause or contribute to bone loss and fracture risk. National Osteoporosis Foundation (NOF) recommends pharmacologic intervention for patients with a prior hip or vertebral fracture regardless of BMD T-score. The patient should follow a healthful lifestyle (good nutrition with adequate calcium and vitamin D, and appropriate weight-bearing exercise). Follow-Up: Consider a repeat BMD and Vertebral Fracture Assessment (VFA) exam in 2 years or sooner if medically necessary, to reassess this patient's status. Reported by: MARY on 09/14/2022 12:47:00 PM. Reviewed, dictated and finalized at location ARandell COLEY
== END 2022-09-14 12:23 | disposition home or self-care (01) ==
LOC: ANHIMG 12:23
PROVIDERS: PCP Family Medicine; Visit Provider Family Medicine
DX: M85.88 Other specified disorders of bone density and structure, other site (principal)
CPT/HCPCS: 77080

== ENCOUNTER 2023-02-06 12:29 | Outpatient (CLI) | payer OTHER, SELFPAY ==
[2023-02-06 13:00] VITALS: PULSE 57; O2SAT 98
[2023-02-06 13:05] VITALS: PULSE 74; O2SAT 93
[2023-02-06 13:15] VITALS: PULSE 60; O2SAT 96
--- NOTE | 2023-02-06 13:33 | HOMEO2EVAL ---
Evaluation was performed at [facility] Home Oxygen Evaluation RC: Home Oxygen (O2) Evaluation Start: 02/06/23 13:32 Freq: Status: Active Protocol: RPE Activity Type Activity Date Activity User E-sign Co-sign Detail Recorded Client Recorded Date Recorded By Document 02/06/23 13:00 [email or web address] [email or web address] 02/06/23 13:33 DJO Document 02/06/23 13:05 [email or web address] [email or web address] 02/06/23 13:33 DJO Document 02/06/23 13:15 [email or web address] [email or web address] 02/06/23 13:33 DJO 02/06/23 02/06/23 02/06/23 13:00 13:05 13:15 Home O2 Evaluation [Oxygen] -Test Phase Resting Exercise Resting -Oxygen Delivery Room Air Room Air Room Air [Pulse Oximetry] -Pulse Oximetry (90-100 %) 98 93 96 [Pulse Rate] -Pulse Rate (60-100 beats/min) 57 L 74 60 [Evaluation] -Activity Tolerance Fair [Exercise] -Ambulation Distance (feet) 700 -Ambulation Distance (meters) 213.34 [Charges] -Treatment Charges O2 Evaluation - Outpatient
--- NOTE | 2023-02-06 13:33 | HOMEO2EVAL ---
Evaluation was performed at [facility] Home Oxygen Evaluation RC: Home Oxygen (O2) Evaluation Start: 02/06/23 13:32 Freq: Status: Active Protocol: RPE Activity Type Activity Date Activity User E-sign Co-sign Detail Recorded Client Recorded Date Recorded By Document 02/06/23 13:00 [email or web address] [email or web address] 02/06/23 13:33 DJO Document 02/06/23 13:05 [email or web address] [email or web address] 02/06/23 13:33 DJO Document 02/06/23 13:15 [email or web address] [email or web address] 02/06/23 13:33 DJO 02/06/23 02/06/23 02/06/23 13:00 13:05 13:15 Home O2 Evaluation [Oxygen] -Test Phase Resting Exercise Resting -Oxygen Delivery Room Air Room Air Room Air [Pulse Oximetry] -Pulse Oximetry (90-100 %) 98 93 96 [Pulse Rate] -Pulse Rate (60-100 beats/min) 57 L 74 60 [Evaluation] -Activity Tolerance Fair [Exercise] -Ambulation Distance (feet) 700 -Ambulation Distance (meters) 213.34 [Charges] -Treatment Charges O2 Evaluation - Outpatient
== END 2023-02-06 12:30 | disposition home or self-care (01) ==
PROVIDERS: PCP Family Medicine; Visit Provider Internal Medicine Pulmonary Disease
DX: R06.02 Shortness of breath (principal)
CPT/HCPCS: 94618

== ENCOUNTER 2023-02-13 08:09 | Outpatient (CLI) | payer OTHER, SELFPAY ==
--- NOTE | ~2023-02-13 | US_ITS ---
EXAMINATION: US right upper quadrant DATE: 02/13/2023 09:13 INDICATION: Unspecified cirrhosis of liver. TECHNIQUE: Multiple grayscale and Doppler ultrasound images of the abdomen were obtained. COMPARISON: CT abdomen and pelvis 06/29/2022, abdomen ultrasound 12/06/2020 FINDINGS: The visualized portions of the head and body of the pancreas are normal. The liver demonstr ates coarsened echotexture and surface nodularity, consistent with cirrhosis. There is normal flow in main portal vein. The gallbladder is normal in size. No gallstones or gallbladder wall thickening. T here was no sonographic Escobar sign. The common duct is normal and measures 6 mm. IMPRESSION: 1. Cirrhosis of the liver. Reviewed, dictated and finalized at location A. IMPRESSION: 1. Cirrhosis of the liver.
== END 2023-02-13 08:10 | disposition home or self-care (01) ==
PROVIDERS: PCP Family Medicine; Visit Provider Internal Medicine Gastroenterology
DX: K74.60 Unspecified cirrhosis of liver (principal)
CPT/HCPCS: 76705

== ENCOUNTER 2023-03-25 14:33 | Inpatient (IN) | payer OTHER, SELFPAY ==
[2023-03-25] VITALS (20 sets, daily range): BP systolic 104–137; BP diastolic 52–87; PULSE 17–127; RESP 12–95; TEMP 35.9–36.9; O2SAT 73–100; BMI 32.3
--- NOTE | ~2023-03-25 | CT_ITS ---
EXAMINATION: CT LE LT wo con DATE: 03/25/2023 16:19 INDICATION: Left lower limb swelling. Supratherapeutic Coumadin level. Assess for hematoma. TECHNIQUE: High resolution computed tomography (CT) of the left lower limb from the hip through the f oot was performed without intravenous contrast. Additional sagittal and coronal reconstructions were performed. Automated exposure control and iterative reconstruction technique were employed. The dose- length product was 1891.53 mGy-cm. COMPARISON: None FINDINGS: Left total knee arthroplasty with patellar resurfacing which appears well seated in near-anatomic ali gnment. There is also internal fixation at the bilateral proximal femurs with antegrade intramedullar y rods, femoral neck dynamic compression screw and distal interlocking screw fixations. On the left i s for fixation of an old intratrochanteric fracture of chronic nonunited lesser trochanteric fragment . The internal fixation on the right is only partially visualized on the CT images. No left hip joint effusion. Moderate-sized relatively high attenuation left knee hemarthrosis. No acute fractures iden tified. 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 No ankle joint effusion. Large lobulated intramuscular hematoma extending 20 cm proximal to distal within the left vastus late ralis muscle and measuring up to 7.0 x 3.7 cm in maximal transaxial dimensions. There is a second sma ller hematoma measuring 5.7 x 8.5 x 2.7 cm in maximal dimensions situated between the left greater tr ochanter the more superficial distal left gluteus megan. The uterus is not identified and has likely been surgically resected. Bladder is normal. There are fe w scattered diverticula along the sigmoid colon without adjacent comparison to suggest diverticulitis . Small amount of ascites in the pelvis. No pathologically enlarged pelvic or inguinal lymphadenopath y. IMPRESSION: 1. 20 x 7 x 3.7 cm intramuscular hematoma within the left vastus lateralis muscle with additional 8.5 x 5.7 x 2.7 cm hematoma overlying the left greater trochanter. 2. Moderate-sized hemarthrosis at the left knee were there is a total knee arthroplasty. No evident a cute osseous abnormality. 3. Small amount of ascites in the pelvis. Reviewed, dictated and finalized at location A. IMPRESSION: 1. 20 x 7 x 3.7 cm intramuscular hematoma within the left vastus lateralis musc le with additional 8.5 x 5.7 x 2.7 cm hematoma overlying the left greater troch anter. 2. Moderate-sized hemarthrosis at the left knee were there is a total knee arth roplasty. No evident acute osseous abnormality. 3. Small amount of ascites in the pelvis.
[2023-03-25 14:52] LABS: Basophils Percent Auto 0.3 % (0.2-1.2); Eosinophils Absolute Auto 0.1 K/mm3 (0-0.3); Eosinophils Percent Auto 0.7 % (0-4.4); Hematocrit 23.3 % (37.0-47.0); Hemoglobin 7.5 g/dL (12.0-15.0); Immature Granulocyte Absolute 0.05 K/mm3 (0.00-0.031); Immature Granulocyte Percent A 0.5 % (0-0.5); Lymphocytes Absolute Auto 1.88 K/mm3 (0.9-3.2); Lymphocytes Percent Auto 18.2 % (18.3-44.2); Mean Corpuscular HGB Conc 32.2 g/dl (32-36); Mean Corpuscular Volume 96.3 fl (80-100); Mean Platelet Volume 9.9 fl (7.4-10.4); Monocytes Absolute Auto 0.9 K/mm3 (0.1-0.6); Monocytes Percent Auto 8.3 % (2.6-8.5); Neutrophils Absolute Auto 7.5 K/mm3 (1.3-6.7); Platelet Count Result 157 k/mm3 (150-375); Red Blood Count 2.42 M/mm3 (4.2-5.4); Red Cell Distribution Width 14.5 % (11.5-14.5); White Blood Count 10.3 K/mm3 (4.5-10.0)
[2023-03-25 15:01] LABS: Alanine Aminotransferase 18 U/L (6-35); Albumin Level 3.3 g/dL (3.5-5.1); Alkaline Phosphatase 172 U/L (38-126); Anion Gap 9 mmol/L (8-16); Aspartate Amino Transferase 38 U/L (14-36); Bilirubin,Total 1.6 mg/dL (0.2-1.3); Blood Urea Nitrogen 48 mg/dL (7-17); Calcium 7.8 mg/dL (8.4-10.2); Carbon Dioxide 22 mmol/L (22-30); Chloride 99 mmol/L (98-107); Estimated Glomerular Filt Rate 21; Glucose 101 mg/dL (65-110); Potassium 4.5 mmol/L (3.4-5.0); Sodium 130 mmol/L (137-145)
[2023-03-25 15:06] LABS: Prothrombin Time 74.9 Seconds (11.1-14.7)
[2023-03-25 15:07] LABS: Partial Thromboplastin Time 113.2 SECONDS (22.3-36.8)
[2023-03-25] MEDS: MORPHINE SULFATE (*CRX) 4 MG/ML INJ IV PUSH ×3 (15:58→22:44)
--- NOTE | 2023-03-25 17:15 | ED.GENADULT ---
HPI - General Adult General Chief complaint: Recheck/Abnormal Lab/Rx Stated complaint: hypotension/chronic pain Time Seen by Provider: 03/25/23 15:32 History of Present Illness HPI narrative: Patient is an 88-year-old female who presents ER with pain to her left thigh. Began 2 days ago. Reports she is unable to move due to the pain. No new numbness or tingling. She denies any fall or trauma. Patient reports also today she realized she may have taken an extra dose of Coumadin that she thinks she may have taken last night. Denies any new bruising. No blood in stool. No fevers or chills or sweats. Related Data Home Medications Medication Instructions Recorded Confirmed ascorbic acid (vitamin C) 1,000 mg 1 gm PO DAILY 05/05/20 03/25/23 tablet calcium carbonate 600 mg calcium 600 mg PO DAILY 05/05/20 03/25/23 (1,500 mg) tablet (Calcium) biotin 5,000 mcg disintegrating 10,000 mcg PO DAILY 02/16/21 03/25/23 tablet cetirizine 10 mg capsule (Zyrtec) 10 mg PO DAILY PRN Allergic 02/16/21 03/25/23 Symptoms warfarin 5 mg tablet 5 mg PO [id number] 03/25/23 03/25/23 warfarin 7.5 mg tablet 7.5 mg PO 2XW 03/25/23 03/25/23 Allergies Allergy/AdvReac Type Severity Reaction Status Date / Time acetaminophen [From Percocet] AdvReac Nightmare Verified 03/25/23 15:31 oxycodone [From Percocet] AdvReac Nightmare Verified 03/25/23 15:31 Review of Systems Review of Systems: All systems reviewed & are unremarkable except as noted in HPI and below Constitutional: Constitutional: Denies chills, Denies fatigue and Denies fever(s) ENT: Denies nasal congestion and Denies sore throat Cardiovascular: Cardiovascular: Denies chest pain, Denies rapid heart rate and Denies radiating jaw, neck or arm pain Respiratory: Respiratory: Denies cough and Denies dyspnea Gastrointestinal: Gastrointestinal: Denies abdominal pain, Denies nausea and Denies vomiting Musculoskeletal: Musculoskeletal: Reports arthralgias, Reports joint swelling and Reports muscle cramps Integumentary/Breasts: Skin/Breast: Denies erythema and Denies rash PMFSH Past Medical History Medical History Atrial fibrillation, chronic Atypical pneumonia Chronic kidney disease, stage 3 (moderate) CKD (chronic kidney disease) Cough COVID-19 Esophageal varices Essential (primary) hypertension Fatty liver Hepatic cirrhosis Hypercalcemia Mixed hyperlipidemia Pneumonia Surgical History Surgical History History of hip surgery Lt History of hip surgery Rt History of hysterectomy History of repair of right rotator cuff (~2002) History of total left knee replacement (~05/13/18) Family History Family History Daughter Leukemia Social History Social History Smoking status: Never smoker Second hand tobacco smoke exposure: Yes Alcohol intake: former Substance use: never Substance use type: does not use Lack of Transportation: No Lack of Food: Never True Current Housing: I Have Housing Concerned About Future Housing: No Difficulty Paying Gas/Electric Bills: No Difficulty Paying for Meds: No Currently Unemployed: No Education: High School Diploma/GED Difficulty w/ Childcare or Family Care: No Living arrangements: with family Gender identity (if verbalized by the patient): Female Spiritual care concerns: No Exam Narrative: GENERAL: Well-appearing, well-nourished, and in no acute distress. HEAD: Normocephalic, atraumatic. ENT: Nares clear, no rhinorrhea or epistaxis. Mucous membranes moist. NECK: Supple. CHEST: Clear to auscultation. No respiratory distress. HEART: Regular rate and rhythm. Normal peripheral pulses. ABDOMEN: Soft, nontender, nondistended. EXTREMITIES: Left lower extremity
[2023-03-25] MEDS: PHYTONADIONE 5 MG TABLET PO (17:50)
[2023-03-25] MEDS: MORPHINE SULFATE (*CRX) 2 MG/ML INJ IV PUSH (17:50)
[2023-03-25] MEDS: SODIUM CHLORIDE 0.9% IV 1,000 ML 100 ML IV CONT (19:01)
--- NOTE | 2023-03-25 20:05 | PM.IMHP ---
H&P: HPI History of Present Illness Date/Time: 03/25/23 20:05 Chief Complaint: Leg bleed Narrative: This is an 88-year-old female with a past medical history of AFib on coumadin, CKD, atypical pneumonia, history of left hip, right hip, left knee total replacement surgery. The left knee total replacement was in May 2018. Per her report, the left knee has never been the same. She has had issues in the left leg since the surgery. The patient reports leg swelling in the left leg over the past week. She also took an extra dose of Coumadin on Saturday thinking that that would help the situation. She has an emergency department visit from March 23, 2 days ago. She reported left knee pain and swelling. However nothing was done for the situation. She was just given pain medications. This leg swelling was not precipitated by any acute event or injury or accident. CT scan of the left lower extremity done in the ER shows large intramuscular hematoma and hemarthrosis in the left knee. Ascites is present in the pelvis 2. Her orthopedic surgeon that did her left knee was called. Her INR was also noted to be 8.0. One dose of 10 mg vitamin K oral was given. Also the patient had a hemoglobin of 7.5. The patient was noted to be borderline hypotensive. She has significant lab values showing end-organ damage from hypotension. A sodium of 130 and a calcium of 7.8 were also present. The patient reports chronic shortness of breath, nothing acute today. The patient also denies chest pain. The patient reports significant weakness and dehydration worse over the past week. No other complaints for the patient. Review of Systems Review of Systems: See HPI otherwise negative. [facility] Past Medical History Medical History Atrial fibrillation, chronic Atypical pneumonia Chronic kidney disease, stage 3 (moderate) CKD (chronic kidney disease) Cough COVID-19 Esophageal varices Essential (primary) hypertension Fatty liver Hepatic cirrhosis Hypercalcemia Mixed hyperlipidemia Pneumonia Surgical History Surgical History History of hip surgery Lt History of hip surgery Rt History of hysterectomy History of repair of right rotator cuff (~2002) History of total left knee replacement (~05/13/18) Family History Family History Daughter Leukemia Social History Social History Smoking status: Never smoker Second hand tobacco smoke exposure: Yes Alcohol intake: former Substance use: never Substance use type: does not use Lack of Transportation: No Lack of Food: Never True Current Housing: I Have Housing Concerned About Future Housing: No Difficulty Paying Gas/Electric Bills: No Difficulty Paying for Meds: No Currently Unemployed: No Education: High School Diploma/GED Difficulty w/ Childcare or Family Care: No Living arrangements: with family Gender identity (if verbalized by the patient): Female Spiritual care concerns: No Meds Home Medications and Allergies Home Medications Medication Instructions Recorded Confirmed Type ascorbic acid (vitamin C) 1,000 mg 1 gm PO DAILY 05/05/20 03/25/23 History tablet calcium carbonate 600 mg calcium 600 mg PO DAILY 05/05/20 03/25/23 History (1,500 mg) tablet (Calcium) biotin 5,000 mcg disintegrating 10,000 mcg PO DAILY 02/16/21 03/25/23 History tablet cetirizine 10 mg capsule (Zyrtec) 10 mg PO DAILY PRN Allergic 02/16/21 03/25/23 History Symptoms albuterol sulfate 90 mcg/actuation 2 inh inhalation Q6H PRN shortness 11/17/21 03/25/23 Rx aerosol inhaler (Ventolin HFA) of breath or wheezing #8.5 grams propranolol 20 mg tablet 20 mg PO Q12H 3 months #180 tabs 08/30/22 03/25/23 Rx benzonatate 200
[2023-03-25] MEDS: SODIUM CHLORIDE 0.9% IV 250 ML 30 ML IV CONT (20:26)
[2023-03-25] MEDS: CALCIUM GLUC 1,000 MG/NS 50 ML 1,000 MG/50 ML BAG 100 MG IVPB (20:34)
[2023-03-25] MEDS: PANTOPRAZOLE 40 MG TABLET PO (21:59)
[2023-03-25] MEDS: PROPRANOLOL HCL 20 MG TABLET PO (21:59)
[2023-03-25 22:33] LABS: Appearance Urine Clear (Clear); Bacteria Urine None Seen /hpf; Bilirubin Urine Negative (Negative); Blood Urine 3+ (Negative); Color Urine Yellow (Yellow); Glucose Urine UA Negative (Negative); Ketones Urine Negative (Negative); Leukocyte Esterase Ur 2+ LEU/UL (Negative); Nitrate Urine Negative (Negative); Protein Urine Trace mg/dL (Negative); RBC Urine >100 /hpf (0-2); Specific Grav Ur 1.009 (1.001-1.035); Squamous Epithelial Cell Urine Occasional /hpf (Few); WBC Urine 21-50 /hpf; pH Urine 5.5 (5.0-9.0)
[2023-03-25 22:40] LABS: Add Urine Microscopic? YES
[2023-03-26] VITALS (17 sets, daily range): BP systolic 100–133; BP diastolic 47–89; PULSE 63–114; RESP 14–18; TEMP 36.3–37.3; O2SAT 93–100; BMI 32.3
[2023-03-26] MEDS: SODIUM CHLORIDE 0.9% IV 250 ML 30 ML (00:01)
[2023-03-26] MEDS: MORPHINE SULFATE (*CRX) 4 MG/ML INJ IV PUSH ×5 (00:49→20:32)
[2023-03-26 01:02] LABS: Sodium 131 mmol/L (137-145)
[2023-03-26] MEDS: ONDANSETRON INJ 4 MG/2 ML VIAL IV PUSH (03:00)
[2023-03-26 04:30] LABS: Basophils Percent Auto 0.3 % (0.2-1.2); Eosinophils Absolute Auto 0.2 K/mm3 (0-0.3); Eosinophils Percent Auto 1.8 % (0-4.4); Hematocrit 29.5 % (37.0-47.0); Hemoglobin 9.7 g/dL (12.0-15.0); Immature Granulocyte Absolute 0.04 K/mm3 (0.00-0.031); Immature Granulocyte Percent A 0.4 % (0-0.5); Lymphocytes Absolute Auto 1.83 K/mm3 (0.9-3.2); Lymphocytes Percent Auto 19.5 % (18.3-44.2); Mean Corpuscular HGB Conc 32.9 g/dl (32-36); Mean Corpuscular Hemoglobin 30.5 pg (26-34); Mean Corpuscular Volume 92.8 fl (80-100); Mean Platelet Volume 9.4 fl (7.4-10.4); Monocytes Absolute Auto 0.9 K/mm3 (0.1-0.6); Monocytes Percent Auto 9.8 % (2.6-8.5); Neutrophils Absolute Auto 6.4 K/mm3 (1.3-6.7); Neutrophils Percent Auto 68.2 % (45.5-73.1); Platelet Count Result 169 k/mm3 (150-375); Red Blood Count 3.18 M/mm3 (4.2-5.4); Red Cell Distribution Width 15.4 % (11.5-14.5); White Blood Count 9.4 K/mm3 (4.5-10.0)
[2023-03-26 04:41] LABS: Alanine Aminotransferase 14 U/L (6-35); Alkaline Phosphatase 148 U/L (38-126); Anion Gap 6 mmol/L (8-16); Aspartate Amino Transferase 31 U/L (14-36); Bilirubin,Total 2.5 mg/dL (0.2-1.3); Blood Urea Nitrogen 40 mg/dL (7-17); Calcium 7.9 mg/dL (8.4-10.2); Carbon Dioxide 21 mmol/L (22-30); Chloride 101 mmol/L (98-107); Estimated CRCL calculation 21 ml/min; Estimated Glomerular Filt Rate 28; Glucose 92 mg/dL (65-110); INR 1.9; Potassium 4.2 mmol/L (3.4-5.0); Prothrombin Time 22.7 Seconds (11.1-14.7); Sodium 128 mmol/L (137-145)
--- NOTE | 2023-03-26 09:11 | PM.IMPN ---
Progress Note: A&P Assessment and Plan (1) Hypotension: Code(s): I95.9 - Hypotension, unspecified Status: Acute Assessment and Plan: Resolved, monitor (2) Supratherapeutic INR: Code(s): R79.1 - Abnormal coagulation profile Status: Acute Assessment and Plan: INR 8 at admission, 5 mg oral vitamin K was given in the ER, 5 mg of IV vitamin K ordered by admitting hospitalist 03/26: INR 1.9 (3) Closed fracture of hip: Code(s): S72.009A - Fracture of unspecified part of neck of unspecified femur, initial encounter for closed fracture Status: Acute Assessment and Plan: Appreciate ortho surgery consult (4) Knee pain, left: Code(s): M25.562 - Pain in left knee Status: Acute (5) Atrial fibrillation, chronic: Code(s): I48.20 - Chronic atrial fibrillation, unspecified Status: Acute Assessment and Plan: Rate controlled, monitor (6) Hypocalcemia: Code(s): E83.51 - Hypocalcemia Status: Acute Assessment and Plan: Calcium gluconate infusion of 10 g to be given as a continuous infusion at 100 mL an hour. Calcium essentially unchanged 03/26, however, albumin is 3, corrected calcium of 8.3 is close enough to normal, monitor (7) Hyponatremia: Code(s): E87.1 - Hypo-osmolality and hyponatremia Status: Acute Assessment and Plan: Likely from blood loss and dehydration, creat improving with IVF, sodium slightly lower today at 128 from 131 Monitor for now (8) Blood loss anemia: Code(s): D50.0 - Iron deficiency anemia secondary to blood loss (chronic) Status: Acute Assessment and Plan: From acute bleed into left leg, Orthopedic surgery has been consulted. This is the patient's primary orthopedic surgeon who did the initial operation on her left knee. 2 units PRBC transfusion for acute blood loss anemia. The patient was also hypotensive at multiple points in her disease progression with end-organ damage. 03/26: hgb stable, monitor (9) Acute on chronic renal failure: Code(s): N17.9 - Acute kidney failure, unspecified; N18.9 - Chronic kidney disease, unspecified Status: Acute (10) Shock liver: Code(s): K72.00 - Acute and subacute hepatic failure without coma Status: Acute Plan LE Edema: Hold pt's lasix until acute blood loss anemia and effects of hypotension have resolved DVT prophylaxis with SCDs GI prophylaxis not indicated Code status full code Subjective Date/time seen: 03/26/23 09:11 Interval history: 88 year old female with history of afib, ckd is p/w knee pain and swelling. No overnight events noted. No chest pain or shortness of breath. No nausea, vomiting or diarrhea. No fevers or chills. Review of Systems Review of Systems: 12 point review of systems was assessed and was negative except as noted in the HPI Exam Narrative: General: No acute distress, alert and oriented per baseline HEENT: Atraumatic, normocephalic, mucous membranes moist CV: Regular rate and rhythm, S1, S2 Lungs: Clear to auscultation bilaterally, no rales or crackles noted, no wheezes, good air entry Abdomen: Soft, nontender, nondistended Extremities: Normal to inspection Skin: No rashes noted, no lesions or wounds seen Psych: Euthymic, normal affect Objective Data Vital Signs Vital Signs: Vital Signs - 24 hr 03/25/23 14:34 03/25/23 15:31 03/25/23 15:34 Temperature 96.7 F L Pulse Rate 82 100 111 H Respiratory Rate 18 14 14 Blood Pressure 105/62 137/76 Pulse Oximetry 100 100 Oxygen Delivery Room Air 03/25/23 15:52 03/25/23 16:00 03/25/23 16:01 Temperature Pulse Rate 95 91 105 H Respiratory Rate 33 H 14 12 Blood Pressure 113/68 Pulse Oximetry 99 Oxygen Delivery 03/25/23 16:21 03/25/23 16:22 03/25/23 16:30 Temperature Pulse Rate 127 H 108 H 109 H Respiratory Rate 16 16 12 Blood Pr
[2023-03-26] MEDS: traMADol HCL (*CRX) 50 MG TABLET PO (09:17)
[2023-03-26] MEDS: ASCORBIC ACID 500 MG TABLET 1000 MG PO (09:17)
[2023-03-26] MEDS: PANTOPRAZOLE 40 MG TABLET PO ×2 (09:17→16:55)
[2023-03-26] MEDS: CALCIUM CARBONATE (OSCAL) 500 MG TABLET PO (09:17)
[2023-03-26] MEDS: SODIUM CHLORIDE 0.9% IV 1,000 ML 100 ML IV CONT ×2 (09:21→19:34)
--- NOTE | 2023-03-26 15:36 | PCPTNOTE ---
Ortho consult pending - will see pt once ortho recommendations are entered. Will follow.
--- NOTE | 2023-03-26 16:01 | PM.CNOR ---
Assessment and Plan Assessment and plan (1) Hematoma of left thigh: Qualifiers: Encounter type: initial encounter Qualified Code(s): S70.12XA - Contusion of left thigh, initial encounter Code(s): S70.12XA - Contusion of left thigh, initial encounter Status: Acute (2) Supratherapeutic INR: Code(s): R79.1 - Abnormal coagulation profile Status: Acute (3) Presence of left artificial knee joint: Code(s): Z96.652 - Presence of left artificial knee joint Status: Acute (4) DIA (acute kidney injury): Code(s): N17.9 - Acute kidney failure, unspecified Status: Acute (5) Anemia: Code(s): D64.9 - Anemia, unspecified Status: Acute (6) Hemarthrosis, left knee: Code(s): M25.062 - Hemarthrosis, left knee Status: Acute Plan Left knee hemarthrosis and thigh hematoma. Precipitated by supratherapeutic INR of 8. I will attempt a knee aspiration and attempt to aspirate the thigh hematoma. Will begin mobilizing as able with therapy. History of Present Illness HPI Consult date: 03/26/23 Chief complaint: Thigh Hematoma/Supratherapeutic INR/Anemia/DIA Narrative: Pleasant 88-year-old female presents with severe left thigh and knee pain. She was admitted through the emergency department after evaluation of a large hematoma along the lateral femur and also hemarthrosis at the left knee. History of total knee arthroplasty by nm May 2018. Complicated by chronic knee pain after a fall and a left hip fracture. Subsequent left and right hip fractures treated in [place]. Difficulty bearing weight. Complains of severe pain. No fevers or chills. Significant end-organ damage from anemia and hypotension. Hemoglobin was 7.5. INR at admission 8.0. Vitamin K treatment instituted. Sodium 130 and calcium 7.8. Denies loss of consciousness shortness breath or other acute injuries. Review of Systems Review of Systems: All systems reviewed & are unremarkable except as noted in HPI and below PMFSH Past Medical History Medical History Atrial fibrillation, chronic Atypical pneumonia Chronic kidney disease, stage 3 (moderate) CKD (chronic kidney disease) Cough COVID-19 Esophageal varices Essential (primary) hypertension Fatty liver Hepatic cirrhosis Hypercalcemia Mixed hyperlipidemia Pneumonia Surgical History Surgical History History of hip surgery Lt History of hip surgery Rt History of hysterectomy History of repair of right rotator cuff (~2002) History of total left knee replacement (~05/13/18) Family History Family History Daughter Leukemia Social History Social History Smoking status: Never smoker Second hand tobacco smoke exposure: Yes Alcohol intake: former Substance use: never Substance use type: does not use Lack of Transportation: No Lack of Food: Never True Current Housing: I Have Housing Concerned About Future Housing: No Difficulty Paying Gas/Electric Bills: No Difficulty Paying for Meds: No Currently Unemployed: No Education: High School Diploma/GED Difficulty w/ Childcare or Family Care: No Living arrangements: with family Gender identity (if verbalized by the patient): Female Spiritual care concerns: No Meds Home Medications and Allergies Home Medications Medication Instructions Recorded Confirmed Type ascorbic acid (vitamin C) 1,000 mg 1 gm PO DAILY 05/05/20 03/25/23 History tablet calcium carbonate 600 mg calcium 600 mg PO DAILY 05/05/20 03/25/23 History (1,500 mg) tablet (Calcium) biotin 5,000 mcg disintegrating 10,000 mcg PO DAILY 02/16/21 03/25/23 History tablet cetirizine 10 mg capsule (Zyrtec) 10 mg PO DAILY PRN Allergic 02/16/21 03/25/23 Hist
--- NOTE | 2023-03-26 16:29 | W.PM.PROC2 ---
Procedure Note - Detailed Date of Procedure 03/26/23 Pre-op Diagnosis Thigh Hematoma/Supratherapeutic INR/Anemia/DIA Post-op Diagnosis Same Procedure Performed Aspiration of left knee hemarthrosis. Attempted aspiration of lateral thigh hematoma. Surgeon Luis Armando Shea MD Anesthesia Local Findings 35 mL sanguinous fluid withdrawn from the knee. Description of Procedure Left knee prepped and draped in the usual sterile fashion. 5 mL of 1% lidocaine with epinephrine injected at the superolateral knee and lateral midthigh. 16 gauge needle inserted into the knee. 35 mL of thick partially coagulated blood withdrawn. Similar aspiration attempted at the lateral mid thigh at the CT location of the largest hematoma. Only scant bloody drainage obtained. Compression held on the thigh for 2 minutes. Adhesive bandages placed. Knee aspirate sent for culture. No complications. Patient tolerated the procedure well. Estimated Blood Loss 1 Complications No immediate complications Condition Stable [facility] Billing Surgery - Charge Forward: Surgery Billing
[2023-03-26] MEDS: PROPRANOLOL HCL 20 MG TABLET PO (20:31)
[2023-03-27] VITALS (11 sets, daily range): BP systolic 111–118; BP diastolic 44–66; PULSE 63–120; RESP 17–18; TEMP 36.1–36.8; O2SAT 95–100
[2023-03-27] MEDS: SODIUM CHLORIDE 0.9% IV 1,000 ML 100 ML IV CONT ×2 (05:48→17:05)
[2023-03-27] MEDS: MORPHINE SULFATE (*CRX) 4 MG/ML INJ IV PUSH ×3 (05:55→15:15)
--- NOTE | 2023-03-27 07:26 | PM.IMPN ---
Progress Note: A&P Assessment and Plan (1) Hypotension: Code(s): I95.9 - Hypotension, unspecified Status: Acute Assessment and Plan: Resolved, monitor (2) Supratherapeutic INR: Code(s): R79.1 - Abnormal coagulation profile Status: Acute Assessment and Plan: INR 8 at admission, 5 mg oral vitamin K was given in the ER, 5 mg of IV vitamin K ordered by admitting hospitalist 03/26: INR 1.9 (3) Closed fracture of hip: Code(s): S72.009A - Fracture of unspecified part of neck of unspecified femur, initial encounter for closed fracture Status: Acute Assessment and Plan: Appreciate ortho surgery consult (4) Knee pain, left: Code(s): M25.562 - Pain in left knee Status: Acute Assessment and Plan: PT/OT, pain control (5) Atrial fibrillation, chronic: Code(s): I48.20 - Chronic atrial fibrillation, unspecified Status: Acute Assessment and Plan: Rate controlled, monitor (6) Hypocalcemia: Code(s): E83.51 - Hypocalcemia Status: Acute Assessment and Plan: Calcium gluconate infusion of 10 g to be given as a continuous infusion at 100 mL an hour. Calcium essentially unchanged 03/26, however, albumin is 3, corrected calcium of 8.3 is close enough to normal, monitor (7) Hyponatremia: Code(s): E87.1 - Hypo-osmolality and hyponatremia Status: Acute Assessment and Plan: Likely from blood loss and dehydration, creat improving with IVF, sodium slightly lower today at 128 from 131 Monitor for now (8) Blood loss anemia: Code(s): D50.0 - Iron deficiency anemia secondary to blood loss (chronic) Status: Acute Assessment and Plan: From acute bleed into left leg, Orthopedic surgery has been consulted. This is the patient's primary orthopedic surgeon who did the initial operation on her left knee. 2 units PRBC transfusion for acute blood loss anemia. The patient was also hypotensive at multiple points in her disease progression with end-organ damage. 03/26: hgb stable, monitor (9) Acute on chronic renal failure: Code(s): N17.9 - Acute kidney failure, unspecified; N18.9 - Chronic kidney disease, unspecified Status: Acute (10) Shock liver: Code(s): K72.00 - Acute and subacute hepatic failure without coma Status: Acute Plan LE Edema: Hold pt's lasix until acute blood loss anemia and effects of hypotension have resolved DVT prophylaxis with SCDs GI prophylaxis not indicated Code status full code Subjective Date/time seen: 03/27/23 07:26 Interval history: 88 year old female with history of afib, ckd is p/w knee pain and swelling. No overnight events noted. No chest pain or shortness of breath. No nausea, vomiting or diarrhea. No fevers or chills. Still with significant pain in her leg, thigh and knee. Review of Systems Review of Systems: 12 point review of systems was assessed and was negative except as noted in the HPI Exam Narrative: General: No acute distress, alert and oriented per baseline HEENT: Atraumatic, normocephalic, mucous membranes moist CV: Regular rate and rhythm, S1, S2 Lungs: Clear to auscultation bilaterally, no rales or crackles noted, no wheezes, good air entry Abdomen: Soft, nontender, nondistended Extremities: Normal to inspection, swelling noted on left thigh, effusion over knee on left, less than yesterday Skin: No rashes noted, no lesions or wounds seen Psych: Euthymic, normal affect Objective Data Vital Signs Vital Signs: Vital Signs - 24 hr 03/26/23 09:20 03/26/23 09:17 03/26/23 08:00 Temperature Pulse Rate 96 92 Respiratory Rate 14 Blood Pressure 105/60 Pulse Oximetry 93 Oxygen Delivery Room Air 03/26/23 12:00 03/26/23 14:15 03/26/23 16:00 Temperature 99.1 F Pulse Rate 101 H 74 74 Respiratory Rate 17 Blood Pressure 133/89 Pulse Oximetr
[2023-03-27 08:09] LABS: Basophils Percent Auto 0.1 % (0.2-1.2); Eosinophils Absolute Auto 0.2 K/mm3 (0-0.3); Eosinophils Percent Auto 2.7 % (0-4.4); Hematocrit 26.2 % (37.0-47.0); Hemoglobin 8.4 g/dL (12.0-15.0); Immature Granulocyte Absolute 0.02 K/mm3 (0.00-0.031); Immature Granulocyte Percent A 0.3 % (0-0.5); Lymphocytes Absolute Auto 1.76 K/mm3 (0.9-3.2); Lymphocytes Percent Auto 24.7 % (18.3-44.2); Mean Corpuscular HGB Conc 32.1 g/dl (32-36); Mean Corpuscular Hemoglobin 30.2 pg (26-34); Mean Corpuscular Volume 94.2 fl (80-100); Mean Platelet Volume 9.1 fl (7.4-10.4); Monocytes Absolute Auto 0.9 K/mm3 (0.1-0.6); Monocytes Percent Auto 11.9 % (2.6-8.5); Neutrophils Absolute Auto 4.3 K/mm3 (1.3-6.7); Neutrophils Percent Auto 60.3 % (45.5-73.1); Platelet Count Result 184 k/mm3 (150-375); Red Blood Count 2.78 M/mm3 (4.2-5.4); Red Cell Distribution Width 15.6 % (11.5-14.5); White Blood Count 7.1 K/mm3 (4.5-10.0)
[2023-03-27] MEDS: ASCORBIC ACID 500 MG TABLET 1000 MG PO (08:26)
[2023-03-27] MEDS: CALCIUM CARBONATE (OSCAL) 500 MG TABLET PO (08:26)
[2023-03-27] MEDS: PANTOPRAZOLE 40 MG TABLET PO ×2 (08:26→17:05)
[2023-03-27] MEDS: PROPRANOLOL HCL 20 MG TABLET PO ×2 (08:26→21:04)
[2023-03-27 08:35] LABS: Alanine Aminotransferase 13 U/L (6-35); Albumin Level 2.7 g/dL (3.5-5.1); Alkaline Phosphatase 147 U/L (38-126); Anion Gap 1 mmol/L (8-16); Aspartate Amino Transferase 28 U/L (14-36); Bilirubin,Total 1.9 mg/dL (0.2-1.3); Blood Urea Nitrogen 30 mg/dL (7-17); Calcium 7.8 mg/dL (8.4-10.2); Carbon Dioxide 24 mmol/L (22-30); Chloride 106 mmol/L (98-107); Estimated CRCL calculation 25 ml/min; Estimated Glomerular Filt Rate 36; Glucose 104 mg/dL (65-110); Potassium 4.8 mmol/L (3.4-5.0); Sodium 131 mmol/L (137-145)
--- NOTE | 2023-03-27 08:39 | PM.PNORT ---
Progress Note: A&P Assessment and Plan (1) Hemarthrosis, left knee: Code(s): M25.062 - Hemarthrosis, left knee Status: Acute (2) Supratherapeutic INR: Code(s): R79.1 - Abnormal coagulation profile Status: Acute (3) Hematoma of left thigh: Qualifiers: Encounter type: initial encounter Qualified Code(s): S70.12XA - Contusion of left thigh, initial encounter Code(s): S70.12XA - Contusion of left thigh, initial encounter Status: Acute (4) Anemia: Code(s): D64.9 - Anemia, unspecified Status: Acute Plan Left knee hemarthrosis and thigh hematoma.? Precipitated by supratherapeutic INR of 8.?Last INR was 1.9. Dr. Shea aspirated the knee yesterday. Slight improvement in pain. He was unable to aspirate the hip. Patient notes she is still having significant pain in the hip and knee today. Worse with any motion. I recommend she start formal physical therapy as soon as able. Will continue to follow. Subjective Subjective Date/Time Seen: 03/27/23 08:39 Interval history: Patient resting comfortably in bed at the time of my visit. Notes pain in the knee and hip with motion. Notes slight decreased pain in the knee since aspiration yesterday. No new increased pain, redness or warmth. Review of Systems Review of Systems: All systems reviewed & are unremarkable except as noted in HPI and below Exam Narrative: 88 y/o female. Afebrile. Comfortable and alert. Uncomfortable.? Tender along the lateral thigh.? Moderate swelling throughout the thigh and lower leg.? Minimal calf tenderness.? Negative Homans test.? Knee flexion to 20? with significant pain.? Moderate painful effusion palpable.? Significant tenderness along the ITB band and lateral leg.? Previous scar noted from the trochanteric short nail.? Light touch sensation intact.? Wiggles her toes with good strength.? Brisk capillary refill. Objective Data Vital Signs Vital Signs: Vital Signs - 24 hr 03/26/23 09:20 03/26/23 09:17 03/26/23 12:00 Temperature Pulse Rate 96 101 H Respiratory Rate 14 Blood Pressure 105/60 Pulse Oximetry 93 Oxygen Delivery Room Air 03/26/23 14:15 03/26/23 16:00 03/26/23 20:31 Temperature 99.1 F Pulse Rate 74 74 74 Respiratory Rate 17 Blood Pressure 133/89 Pulse Oximetry 99 Oxygen Delivery 03/26/23 20:40 03/26/23 20:00 03/27/23 00:00 Temperature 97.4 F L Pulse Rate 95 114 H 110 H Respiratory Rate 18 Blood Pressure 111/69 Pulse Oximetry 96 Oxygen Delivery 03/26/23 20:20 03/27/23 03:34 03/27/23 04:00 Temperature 97.0 F L Pulse Rate 64 120 H Respiratory Rate 18 Blood Pressure 118/66 Pulse Oximetry 95 Oxygen Delivery Room Air 03/27/23 08:26 Temperature Pulse Rate 74 Respiratory Rate Blood Pressure Pulse Oximetry Oxygen Delivery Intake/Output Intake/Output: Intake & Output 03/24/23 03/25/23 03/26/23 03/27/23 23:59 23:59 23:59 23:59 Intake Total 455.5 4470 1240 Output Total 700 1100 500 Balance -244.5 3370 740 Meds/Results Medications: Active Medications Generic Name Dose Route Start Last Admin Trade Name Freq PRN Reason Stop Dose Admin Acetaminophen 650 mg 03/25/23 17:21 Acetaminophen 325 Mg Tablet PO Q4H PRN Mild Pain (1-3) or Fever Albuterol 2 puff 03/25/23 20:27 Albuterol Sulfate (*Sp) Aerosol 1 Puff INHALATION Q6H PRN shortness of breath or wheezing Ascorbic Acid 1,000 mg 03/26/23 09:00 03/27/23 08:26 Ascorbic Acid 500 Mg Tablet PO 1,000 mg DAILY PAULA Administration Benzonatate 200 mg 03/25/23 20:34 Benzonatate 100 Mg Capsule PO TID PRN cough Calcium Carbonate 500 mg 03/26/23 09:00 03/27/23 08:26 Calcium Carbonate (Oscal) 500 Mg Tablet PO 500 mg DAILY PAULA Administration Sodium Chloride 1,000 mls @ 100 mls/hr 03/25/23 17:25 03/27/23 05:48 Normal Saline Iv IV CONT 100 mls/hr .Q10H PAULA Admini
[2023-03-27] MEDS: ONDANSETRON INJ 4 MG/2 ML VIAL IV PUSH (11:40)
[2023-03-28] VITALS (11 sets, daily range): BP systolic 112–124; BP diastolic 54–69; PULSE 62–73; RESP 16–20; TEMP 36.4–36.7; O2SAT 95–100
[2023-03-28] MEDS: SODIUM CHLORIDE 0.9% IV 1,000 ML 100 ML IV CONT (03:04)
[2023-03-28 05:19] LABS: Basophils Percent Auto 0.2 % (0.2-1.2); Eosinophils Absolute Auto 0.2 K/mm3 (0-0.3); Eosinophils Percent Auto 2.9 % (0-4.4); Hemoglobin 7.7 g/dL (12.0-15.0); Immature Granulocyte Absolute 0.02 K/mm3 (0.00-0.031); Immature Granulocyte Percent A 0.4 % (0-0.5); Lymphocytes Absolute Auto 1.55 K/mm3 (0.9-3.2); Mean Corpuscular HGB Conc 32.1 g/dl (32-36); Mean Corpuscular Hemoglobin 30.4 pg (26-34); Mean Corpuscular Volume 94.9 fl (80-100); Mean Platelet Volume 9.2 fl (7.4-10.4); Monocytes Absolute Auto 0.6 K/mm3 (0.1-0.6); Monocytes Percent Auto 10.1 % (2.6-8.5); Neutrophils Absolute Auto 3.2 K/mm3 (1.3-6.7); Neutrophils Percent Auto 58.4 % (45.5-73.1); Platelet Count Result 157 k/mm3 (150-375); Red Blood Count 2.53 M/mm3 (4.2-5.4); Red Cell Distribution Width 15.5 % (11.5-14.5); White Blood Count 5.5 K/mm3 (4.5-10.0)
[2023-03-28 05:32] LABS: Alanine Aminotransferase 14 U/L (6-35); Albumin Level 2.6 g/dL (3.5-5.1); Alkaline Phosphatase 176 U/L (38-126); Anion Gap 2 mmol/L (8-16); Aspartate Amino Transferase 30 U/L (14-36); Bilirubin,Total 1.7 mg/dL (0.2-1.3); Blood Urea Nitrogen 26 mg/dL (7-17); Calcium 7.9 mg/dL (8.4-10.2); Carbon Dioxide 20 mmol/L (22-30); Chloride 109 mmol/L (98-107); Estimated CRCL calculation 27 ml/min; Estimated Glomerular Filt Rate 39; Glucose 96 mg/dL (65-110); Potassium 4.5 mmol/L (3.4-5.0); Sodium 131 mmol/L (137-145)
[2023-03-28] MEDS: PANTOPRAZOLE 40 MG TABLET PO ×2 (08:02→17:23)
[2023-03-28] MEDS: PROPRANOLOL HCL 20 MG TABLET PO ×2 (08:02→20:44)
[2023-03-28] MEDS: ASCORBIC ACID 500 MG TABLET 1000 MG PO (08:02)
[2023-03-28] MEDS: CALCIUM CARBONATE (OSCAL) 500 MG TABLET PO (08:02)
[2023-03-28] MEDS: MORPHINE SULFATE (*CRX) 4 MG/ML INJ IV PUSH ×2 (08:40→11:03)
--- NOTE | 2023-03-28 10:55 | PM.IMPN ---
Progress Note: A&P Assessment and Plan (1) Hypotension: Code(s): I95.9 - Hypotension, unspecified Status: Acute Assessment and Plan: Resolved, monitor (2) Supratherapeutic INR: Code(s): R79.1 - Abnormal coagulation profile Status: Acute Assessment and Plan: Resolved (3) Closed fracture of hip: Code(s): S72.009A - Fracture of unspecified part of neck of unspecified femur, initial encounter for closed fracture Status: Acute Assessment and Plan: Appreciate ortho surgery consult (4) Knee pain, left: Code(s): M25.562 - Pain in left knee Status: Acute Assessment and Plan: Appreciate orthopedic surgery input. Knee was aspirated yesterday. PT/OT, pain control (5) Atrial fibrillation, chronic: Code(s): I48.20 - Chronic atrial fibrillation, unspecified Status: Acute Assessment and Plan: Rate controlled, monitor (6) Hypocalcemia: Code(s): E83.51 - Hypocalcemia Status: Acute Assessment and Plan: Corrected calcium is normal (7) Blood loss anemia: Code(s): D50.0 - Iron deficiency anemia secondary to blood loss (chronic) Status: Acute Assessment and Plan: From acute bleed into left leg, Orthopedic surgery has been consulted. hgb stable, monitor (8) Acute on chronic renal failure: Code(s): N17.9 - Acute kidney failure, unspecified; N18.9 - Chronic kidney disease, unspecified Status: Acute Assessment and Plan: Monitor Subjective Date/time seen: 03/28/23 10:55 Interval history: Patient still reports pain and left knee and hip. Still has some swelling in the left leg Review of Systems Review of Systems: All systems reviewed & are unremarkable except as noted in HPI and below Exam Narrative: General: No acute distress, alert and oriented per baseline HEENT: Atraumatic, normocephalic, mucous membranes moist CV: Regular rate and rhythm, S1, S2 Lungs: Clear to auscultation bilaterally, no rales or crackles noted, no wheezes, good air entry Abdomen: Soft, nontender, nondistended Extremities: Normal to inspection, swelling noted on left thigh, effusion over knee on left, less than yesterday Skin: No rashes noted, no lesions or wounds seen Psych: Euthymic, normal affect Objective Data Vital Signs Vital Signs: Vital Signs - 24 hr 03/27/23 14:48 03/27/23 12:00 03/27/23 16:00 Temperature 97.8 F Pulse Rate 68 70 63 Respiratory Rate 18 Blood Pressure 112/44 L Pulse Oximetry 100 Oxygen Delivery 03/27/23 20:45 03/27/23 21:04 03/27/23 20:55 Temperature 98.2 F Pulse Rate 65 77 Respiratory Rate 17 Blood Pressure 111/44 L Pulse Oximetry 99 Oxygen Delivery Room Air 03/27/23 20:00 03/28/23 00:00 03/28/23 04:00 Temperature Pulse Rate 75 70 67 Respiratory Rate Blood Pressure Pulse Oximetry Oxygen Delivery 03/28/23 05:29 03/28/23 08:02 03/28/23 08:00 Temperature 98.1 F Pulse Rate 73 70 70 Respiratory Rate 17 Blood Pressure 112/54 L Pulse Oximetry 95 Oxygen Delivery 03/28/23 08:00 Temperature Pulse Rate Respiratory Rate Blood Pressure Pulse Oximetry 95 Oxygen Delivery Room Air Intake/Output Intake/Output: Intake & Output 03/25/23 03/26/23 03/27/23 03/28/23 23:59 23:59 23:59 23:59 Intake Total 455.5 / 455.5 4470 / 4470 3390 / 3390 1590 / 1590 Output Total 700 / 700 1100 / 1100 950 / 950 750 / 750 Balance -244.5 / -244.5 3370 / 3370 2440 / 2440 840 / 840 Meds/Results Medications: Active Medications Generic Name Dose Route Start Last Admin Trade Name Freq PRN Reason Stop Dose Admin Acetaminophen 650 mg 03/25/23 17:21 Acetaminophen 325 Mg Tablet PO Q4H PRN Mild Pain (1-3) or Fever Albuterol 2 puff 03/25/23 20:27 Albuterol Sulfate (*Sp) Aerosol 1 Puff INHALATION Q6H PRN shortness of breath or wheezing
--- NOTE | 2023-03-28 12:42 | PM.PNORT ---
Progress Note: A&P Assessment and Plan (1) Hemarthrosis, left knee: Code(s): M25.062 - Hemarthrosis, left knee Status: Acute (2) Supratherapeutic INR: Code(s): R79.1 - Abnormal coagulation profile Status: Acute (3) Hematoma of left thigh: Qualifiers: Encounter type: initial encounter Qualified Code(s): S70.12XA - Contusion of left thigh, initial encounter Code(s): S70.12XA - Contusion of left thigh, initial encounter Status: Acute (4) Anemia: Code(s): D64.9 - Anemia, unspecified Status: Acute Plan Left knee hemarthrosis and thigh hematoma.? Precipitated by supratherapeutic INR of 8.?Last INR was 1.9. Dr. Shea aspirated the knee 03/26/23. Slight improvement in pain. He was unable to aspirate the hip. Patient notes she is still having significant pain in the hip and knee today. Notes it is controlled with pain medication and that it has not gotten worse since yesterday. Worse with any motion. Continue formal physical therapy. Patient will likely need inpatient rehab at discharge. Will continue to follow. Subjective Subjective Date/Time Seen: 03/28/23 12:42 Interval history: Patient resting comfortably in a chair. Pain controlled with pain medications. No increased pain. She is unable to walk without assistance due to the pain. Complains of swelling in the leg. Also complains of nausea. Review of Systems Review of Systems: All systems reviewed & are unremarkable except as noted in HPI and below Exam Narrative: 88 y/o female. Afebrile. Comfortable and alert. Uncomfortable.? Tender along the lateral thigh.? Moderate swelling throughout the thigh and lower leg.? Minimal calf tenderness.? Negative Homans test.? Knee flexion to 20? with significant pain.? Moderate painful effusion palpable.? Significant tenderness along the ITB band and lateral leg.? Previous scar noted from the trochanteric short nail.? Light touch sensation intact.? Wiggles her toes with good strength.? Brisk capillary refill. Objective Data Vital Signs Vital Signs: Vital Signs - 24 hr 03/27/23 14:48 03/27/23 16:00 03/27/23 20:45 Temperature 97.8 F 98.2 F Pulse Rate 68 63 65 Respiratory Rate 18 17 Blood Pressure 112/44 L 111/44 L Pulse Oximetry 100 99 Oxygen Delivery 03/27/23 21:04 03/27/23 20:55 03/27/23 20:00 Temperature Pulse Rate 77 75 Respiratory Rate Blood Pressure Pulse Oximetry Oxygen Delivery Room Air 03/28/23 00:00 03/28/23 04:00 03/28/23 05:29 Temperature 98.1 F Pulse Rate 70 67 73 Respiratory Rate 17 Blood Pressure 112/54 L Pulse Oximetry 95 Oxygen Delivery 03/28/23 08:02 03/28/23 08:00 03/28/23 08:00 Temperature Pulse Rate 70 70 Respiratory Rate Blood Pressure Pulse Oximetry 95 Oxygen Delivery Room Air 03/28/23 12:00 Temperature Pulse Rate 71 Respiratory Rate Blood Pressure Pulse Oximetry Oxygen Delivery Intake/Output Intake/Output: Intake & Output 03/25/23 03/26/23 03/27/23 03/28/23 23:59 23:59 23:59 23:59 Intake Total 455.5 4470 3390 1590 Output Total 700 1100 950 750 Balance -244.5 3370 2440 840 Meds/Results Medications: Active Medications Generic Name Dose Route Start Last Admin Trade Name Freq PRN Reason Stop Dose Admin Acetaminophen 650 mg 03/25/23 17:21 Acetaminophen 325 Mg Tablet PO Q4H PRN Mild Pain (1-3) or Fever Albuterol 2 puff 03/25/23 20:27 Albuterol Sulfate (*Sp) Aerosol 1 Puff INHALATION Q6H PRN shortness of breath or wheezing Ascorbic Acid 1,000 mg 03/26/23 09:00 03/28/23 08:02 Ascorbic Acid 500 Mg Tablet PO 1,000 mg DAILY PAULA Administration Benzonatate 200 mg 03/25/23 20:34 Benzonatate 100 Mg Capsule PO TID PRN cough Calcium Carbonate 500 mg 03/26/23 09:00 03/28/23 08:02 Calcium Carbonate (Oscal) 500 Mg Tablet PO 500 mg DAILY PAULA Administration Loratadine 10 mg
[2023-03-28] MEDS: BISACODYL 5 MG TABLET EC PO (14:08)
[2023-03-28] MEDS: polyethylene glycoL 3350 17 GM POWD.PACK PO (14:08)
[2023-03-28] MEDS: oxyCODONE HCL (*CRX) 5 MG TAB IR 10 MG PO ×2 (14:09→20:44)
[2023-03-29] VITALS (11 sets, daily range): BP systolic 115–126; BP diastolic 52–55; PULSE 65–74; RESP 14–20; TEMP 36.4–37.1; O2SAT 97–99
[2023-03-29 05:06] LABS: Hemoglobin 7.7 g/dL (12.0-15.0); Mean Corpuscular HGB Conc 32.1 g/dl (32-36); Mean Corpuscular Hemoglobin 30.7 pg (26-34); Mean Corpuscular Volume 95.6 fl (80-100); Mean Platelet Volume 9.1 fl (7.4-10.4); Platelet Count Result 139 k/mm3 (150-375); Red Blood Count 2.51 M/mm3 (4.2-5.4); Red Cell Distribution Width 15.2 % (11.5-14.5); White Blood Count 5.5 K/mm3 (4.5-10.0)
[2023-03-29 05:10] LABS: Anion Gap 3 mmol/L (8-16); Blood Urea Nitrogen 25 mg/dL (7-17); Carbon Dioxide 22 mmol/L (22-30); Chloride 106 mmol/L (98-107); Estimated CRCL calculation 29 ml/min; Estimated Glomerular Filt Rate 43; Glucose 93 mg/dL (65-110); Potassium 4.6 mmol/L (3.4-5.0); Sodium 131 mmol/L (137-145)
[2023-03-29] MEDS: CALCIUM CARBONATE (OSCAL) 500 MG TABLET PO (08:09)
[2023-03-29] MEDS: PROPRANOLOL HCL 20 MG TABLET PO ×2 (08:09→20:21)
[2023-03-29] MEDS: BISACODYL 5 MG TABLET EC PO (08:09)
[2023-03-29] MEDS: polyethylene glycoL 3350 17 GM POWD.PACK PO (08:10)
[2023-03-29] MEDS: ASCORBIC ACID 500 MG TABLET 1000 MG PO (08:17)
[2023-03-29] MEDS: PANTOPRAZOLE 40 MG TABLET PO ×2 (08:17→16:34)
[2023-03-29] MEDS: oxyCODONE HCL (*CRX) 5 MG TAB IR 10 MG PO ×2 (09:39→15:32)
--- NOTE | 2023-03-29 11:21 | PM.IMPN ---
Progress Note: A&P Assessment and Plan (1) Closed fracture of hip: Code(s): S72.009A - Fracture of unspecified part of neck of unspecified femur, initial encounter for closed fracture Status: Acute Assessment and Plan: Appreciate ortho surgery consult PT, OT. Pending rehab placement (2) Supratherapeutic INR: Code(s): R79.1 - Abnormal coagulation profile Status: Acute Assessment and Plan: Resolved (3) Knee pain, left: Code(s): M25.562 - Pain in left knee Status: Acute Assessment and Plan: Appreciate orthopedic surgery input. Knee was aspirated. PT/OT, pain control Pending rehab placement (4) Atrial fibrillation, chronic: Code(s): I48.20 - Chronic atrial fibrillation, unspecified Status: Acute Assessment and Plan: Rate controlled, monitor (5) Hypocalcemia: Code(s): E83.51 - Hypocalcemia Status: Acute Assessment and Plan: Corrected calcium is normal (6) Blood loss anemia: Code(s): D50.0 - Iron deficiency anemia secondary to blood loss (chronic) Status: Acute Assessment and Plan: hgb stable, monitor (7) Acute on chronic renal failure: Code(s): N17.9 - Acute kidney failure, unspecified; N18.9 - Chronic kidney disease, unspecified Status: Acute Assessment and Plan: Monitor Subjective Date/time seen: 03/29/23 11:21 Interval history: Still has significant weakness. Still has pain in the left leg but slightly better than yesterday Review of Systems Review of Systems: All systems reviewed & are unremarkable except as noted in HPI and below Exam Narrative: General: alert and oriented per baseline HEENT: Atraumatic, normocephalic, mucous membranes moist CV: Regular rate and rhythm, S1, S2 Lungs: Clear to auscultation bilaterally, no rales or crackles noted, no wheezes, good air entry Abdomen: Soft, nontender, nondistended Extremities: Normal to inspection, swelling noted on left thigh and knee Skin: No rashes noted, no lesions or wounds seen Psych: Euthymic, normal affect Objective Data Vital Signs Vital Signs: Vital Signs - 24 hr 03/28/23 12:00 03/28/23 14:45 03/28/23 16:00 Temperature 98.1 F Pulse Rate 71 67 62 Respiratory Rate 16 Blood Pressure 124/62 Pulse Oximetry 100 Oxygen Delivery 03/28/23 20:42 03/28/23 20:44 03/28/23 20:00 Temperature 97.5 F L Pulse Rate 69 69 67 Respiratory Rate 20 Blood Pressure 121/69 Pulse Oximetry 100 Oxygen Delivery 03/28/23 20:00 03/29/23 00:00 03/29/23 01:02 Temperature 97.6 F Pulse Rate 69 65 78 Respiratory Rate 20 16 Blood Pressure 142/70 H Pulse Oximetry 100 98 Oxygen Delivery Room Air 03/29/23 04:00 03/29/23 06:55 03/29/23 08:09 Temperature 98.7 F Pulse Rate 67 68 68 Respiratory Rate 14 Blood Pressure 115/54 L Pulse Oximetry 97 Oxygen Delivery 03/29/23 08:00 03/29/23 08:00 Temperature Pulse Rate 66 Respiratory Rate Blood Pressure Pulse Oximetry 97 Oxygen Delivery Room Air Intake/Output Intake/Output: Intake & Output 03/26/23 03/27/23 03/28/23 03/29/23 23:59 23:59 23:59 23:59 Intake Total 4470 / 4470 3390 / 3390 2620 / 2620 580 / 580 Output Total 1100 / 1100 950 / 950 1650 / 1650 800 / 800 Balance 3370 / 3370 2440 / 2440 970 / 970 -220 / -220 Meds/Results Medications: Active Medications Generic Name Dose Route Start Last Admin Trade Name Freq PRN Reason Stop Dose Admin Acetaminophen 650 mg 03/25/23 17:21 Acetaminophen 325 Mg Tablet PO Q4H PRN Mild Pain (1-3) or Fever Albuterol 2 puff 03/25/23 20:27 Albuterol Sulfate (*Sp) Aerosol 1 Puff INHALATION Q6H PRN shortness of breath or wheezing Ascorbic Acid 1,000 mg 03/26/23 09:00 03/29/23 08:17 Ascorbic Acid 500 Mg Tablet PO 1,000 mg DAILY PAULA Administration Benzonatate 200 mg 03/25/23 20:34 B
--- NOTE | 2023-03-29 11:35 | PCNFU ---
Nutrition Follow-Up Complete: Suboptimal po intake related to reduced appetite as evidenced by pt report and charted intake goal: PO intake greater than 50% of meals and supplements Patient is meeting goal. No new goal. Pt current nutrition is Heart Healthy. Last recorded weight is 80.3 kg. no new weight to report. Bowel Motility:Last BM reported 03/22 Labs Reviewed:Cr 1.2, Na 131, BUN 25, GFR 43 Meds Noted:Miralax, Dulcolax, Protonix. Skin: WNL Additional Notes: Patient remains on a Heart Healthy diet with Ensure Compact BID. Patient is consuming 50-90% of meals and drinking diet supplements. Agree with diet orders. Monitor intake, wt, labs. Follow up in 7 days.
--- NOTE | 2023-03-29 14:58 | PM.PNORT ---
Progress Note: A&P Assessment and Plan (1) Hemarthrosis, left knee: Code(s): M25.062 - Hemarthrosis, left knee Status: Acute (2) Supratherapeutic INR: Code(s): R79.1 - Abnormal coagulation profile Status: Acute (3) Hematoma of left thigh: Qualifiers: Encounter type: initial encounter Qualified Code(s): S70.12XA - Contusion of left thigh, initial encounter Code(s): S70.12XA - Contusion of left thigh, initial encounter Status: Acute (4) Anemia: Code(s): D64.9 - Anemia, unspecified Status: Acute Plan Notes pain is the same. No changes since previous visit. Left knee hemarthrosis and thigh hematoma.? Precipitated by supratherapeutic INR of 8.?Last INR was 1.9. Dr. Shea aspirated the knee 03/26/23. Slight improvement in pain. He was unable to aspirate the hip. Patient notes she is still having significant pain in the hip and knee today. Notes it is controlled with pain medication and that it has not gotten worse since yesterday. Worse with any motion. Continue formal physical therapy. Patient will likely need inpatient rehab at discharge. Will continue to follow. Okay for discharge when patient is medically stable. She may follow up as needed in office. Subjective Subjective Date/Time Seen: 03/29/23 14:58 Interval history: Patient resting comfortably in a chair. Pain controlled with pain medications. No increased pain. She is unable to walk without assistance due to the pain. Complains of swelling in the leg. She states she has not had a BM since being in the hospital. Review of Systems Review of Systems: All systems reviewed & are unremarkable except as noted in HPI and below Exam Narrative: 88 y/o female. Afebrile. Comfortable and alert. Uncomfortable.? Tender along the lateral thigh.? Moderate swelling throughout the thigh and lower leg.? Minimal calf tenderness.? Negative Homans test.? Knee flexion to 20? with significant pain.? Moderate painful effusion palpable.? Significant tenderness along the ITB band and lateral leg.? Previous scar noted from the trochanteric short nail.? Light touch sensation intact.? Wiggles her toes with good strength.? Brisk capillary refill. No changes since previous exam. Objective Data Vital Signs Vital Signs: Vital Signs - 24 hr 03/28/23 16:00 03/28/23 20:42 03/28/23 20:44 Temperature 97.5 F L Pulse Rate 62 69 69 Respiratory Rate 20 Blood Pressure 121/69 Pulse Oximetry 100 Oxygen Delivery 03/28/23 20:00 03/28/23 20:00 03/29/23 00:00 Temperature Pulse Rate 67 69 65 Respiratory Rate 20 Blood Pressure Pulse Oximetry 100 Oxygen Delivery Room Air 03/29/23 01:02 03/29/23 04:00 03/29/23 06:55 Temperature 97.6 F 98.7 F Pulse Rate 78 67 68 Respiratory Rate 16 14 Blood Pressure 142/70 H 115/54 L Pulse Oximetry 98 97 Oxygen Delivery 03/29/23 08:09 03/29/23 08:00 03/29/23 08:00 Temperature Pulse Rate 68 66 Respiratory Rate Blood Pressure Pulse Oximetry 97 Oxygen Delivery Room Air 03/29/23 12:00 Temperature Pulse Rate 68 Respiratory Rate Blood Pressure Pulse Oximetry Oxygen Delivery Intake/Output Intake/Output: Intake & Output 03/26/23 03/27/23 03/28/23 03/29/23 23:59 23:59 23:59 23:59 Intake Total 4470 3390 2620 820 Output Total 7367 799 3115 800 Balance 3370 2440 970 20 Meds/Results Medications: Active Medications Generic Name Dose Route Start Last Admin Trade Name Freq PRN Reason Stop Dose Admin Acetaminophen 650 mg 03/25/23 17:21 Acetaminophen 325 Mg Tablet PO Q4H PRN Mild Pain (1-3) or Fever Albuterol 2 puff 03/25/23 20:27 Albuterol Sulfate (*Sp) Aerosol 1 Puff INHALATION Q6H PRN shortness of breath or wheezing Ascorbic Acid 1,000 mg 03/26/23 09:00 03/29/23 08:17 Ascorbic Acid 500 Mg Tablet PO 1,000 mg DAILY PAULA Administration Benzonatate 200 mg 03/25/23 20:34
[2023-03-30] VITALS (8 sets, daily range): BP systolic 119–121; BP diastolic 53–58; PULSE 63–71; RESP 12–18; TEMP 36.1–36.6; O2SAT 96–99
[2023-03-30] MEDS: oxyCODONE HCL (*CRX) 5 MG TAB IR 10 MG PO ×2 (00:45→10:27)
[2023-03-30] MEDS: polyethylene glycoL 3350 17 GM POWD.PACK PO (08:40)
[2023-03-30] MEDS: PROPRANOLOL HCL 20 MG TABLET PO (08:41)
[2023-03-30] MEDS: CALCIUM CARBONATE (OSCAL) 500 MG TABLET PO (08:42)
[2023-03-30] MEDS: ASCORBIC ACID 500 MG TABLET 1000 MG PO (08:46)
[2023-03-30] MEDS: PANTOPRAZOLE 40 MG TABLET PO (08:46)
--- NOTE | 2023-03-30 12:01 | PM.DS ---
DS: Admitting Diagnosis Discharge Date 03/30/23 Admitting Diagnosis Hemarthrosis left knee Supratherapeutic INR DS: Discharge Diagnosis Discharge Diagnosis (1) Hemarthrosis, left knee: Code(s): M25.062 - Hemarthrosis, left knee Status: Acute (2) Supratherapeutic INR: Code(s): R79.1 - Abnormal coagulation profile Status: Acute (3) Anemia: Code(s): D64.9 - Anemia, unspecified Status: Acute DS: Summary Hospital Course Hospital Course: ?This is an 88-year-old female with a past medical history of? AFib on coumadin, CKD, atypical pneumonia,? history of left hip, right hip, left knee total replacement surgery.? The left knee total replacement was in May 2018.? Per her report, the left knee has never been the same.? She has had issues in the left leg since the surgery. ? The patient reports leg swelling in the left leg over the past week.? She also took an extra dose of Coumadin on Saturday thinking that that would help the situation. ? She has an emergency department visit from March 23, 2 days ago.? She reported left knee pain and swelling.? However nothing was done for the situation.? She was just given pain medications. ? This leg swelling was not precipitated by any acute event or injury or accident. ? CT scan of the left lower extremity done in the ER shows large intramuscular hematoma and hemarthrosis in the left knee.?Her orthopedic surgeon that did her left knee was called.? Her INR was also noted to be 8.0.? One dose of 10 mg vitamin K oral was given.? Also the patient had a hemoglobin of 7.5.? The patient was noted to be borderline hypotensive.? She has significant lab values showing end-organ damage from hypotension.? A sodium of 130 and a calcium of 7.[address] Shea aspirated the knee 03/26/23. Slight improvement in pain. He was unable to aspirate the hip. Continue formal physical therapy. Patient will likely need inpatient rehab at discharge. Patient has had a subtherapeutic now. She is known to. PT OT were consulted and recommended rehab. Patient is being discharged to rehab in stable condition. Continue Coumadin at home dose. Check INR tomorrow. Time Spent with Patient Time attestation: Total time spent providing and/or coordinating discharge services: DS: Data Data Completed and Pending Labs on day of discharge: Preliminary micro results at discharge 03/26/23 16:30 Anaerobic Culture - Preliminary Synovial Fluid Left Knee Aerobic Culture - Preliminary Discharge Plan Discharge Consulting providers: Luis Armando Shea Discharging Clinician: Boni Katz Anticipated Discharge Date/Time: 03/30/23 11:56 Patient Disposition: SNF Activity: no preference Diet: heart healthy Patient Instructions: Warfarin (By mouth), Pain Management (DC), Warfarin Toxicity (GEN) Stand Alone Forms: General Discharge Information Follow-up/Referrals: Milton Harman MD [Primary Care Provider] - Luis Armando Shea MD [Physician] - Discharge Medications: New oxycodone 5 mg Tablet 10 mg PO Q4H PRN (Reason: Pain Rated 7-10) Qty: 20 0RF Continued Zyrtec 10 mg capsule 10 mg PO DAILY PRN (Reason: Allergic Symptoms) biotin 5,000 mcg tablet,disintegrating 10,000 mcg PO DAILY propranolol 20 mg tablet 20 mg PO Q12H 90 Days Qty: 180 3RF benzonatate 200 mg capsule 200 mg PO TID PRN (Reason: cough) Qty: 20 0RF tramadol 50 mg tablet 50 mg PO Q6H PRN (Reason: pain) Qty: 90 0RF ascorbic acid (vitamin C) 1,000 mg tablet 1 gm PO DAILY calcium carbonate [Calcium 600] 600 mg calcium (1,500 mg) tablet 600 mg PO DAILY warfarin [Coumadin] 7.5 mg Tablet 7.5 mg PO 2XW Rx Instructions: Mon and Fri warfarin [Coumadin] 5 mg Tablet 5 mg PO QTUTHSASU albuterol sulfate [Ventolin HFA] 90 mcg/actuation HFA aerosol inhaler 2 inh inhalation Q6H PRN (Reason: shortness of breath or wheezing) Qty: 8.5
[2023-03-30 12:41] LABS: SARS-CoV-2 RNA PCR Negative (Negative)
== END 2023-03-30 15:15 | DRG 553 ==
LOC: ANHED 16:20 → ANH2MED 18:31
PROVIDERS: Emergency Medicine; Internal Medicine; Student in an Organized Health Care Education/Training Program; Admitting Provider Chiropractor; Emergency Provider Emergency Medicine; PCP Family Medicine; Visit Provider Hospitalist
DX: M25.062 Hemarthrosis, left knee (principal); K72.00 Acute and subacute hepatic failure without coma; D62 Acute posthemorrhagic anemia; I48.20 Chronic atrial fibrillation, unspecified; E87.1 Hypo-osmolality and hyponatremia; N17.9 Acute kidney failure, unspecified; D68.32 Hemorrhagic disorder due to extrinsic circulating anticoagulants; M79.81 Nontraumatic hematoma of soft tissue; T45.515A Adverse effect of anticoagulants, initial encounter; Z79.01 Long term (current) use of anticoagulants; I95.9 Hypotension, unspecified; E83.51 Hypocalcemia; E86.0 Dehydration; Z20.822 Contact with and (suspected) exposure to COVID-19; N18.30 Chronic kidney disease, stage 3 unspecified; E78.2 Mixed hyperlipidemia; K74.60 Unspecified cirrhosis of liver; K76.0 Fatty (change of) liver, not elsewhere classified; Z96.653 Presence of artificial knee joint, bilateral; Z96.642 Presence of left artificial hip joint; Z86.16 Personal history of COVID-19
CPT/HCPCS: 36415; 36430; 73700; 80048; 80053; 81001; 84295; 85025; 85027; 85610; 85730; 86850; 86900; 86901; 86923; 87070; 87075; 87086; 87147; 87181; 87186; 87205; 87635; 96361; 96365; 96367; 96375; 96376; 97110; 97116; 97161; 97166; 97530; 97535; 99285; A9270; G0378; J0612; J2270; J2405; J3430; J7030; J7050; P9016

== ENCOUNTER 2023-04-20 19:27 | Observation (INO) | payer OTHER, SELFPAY ==
--- NOTE | ~2023-04-20 | CT_ITS ---
EXAMINATION: CT thoracic lumbar wo con DATE: 04/21/2023 16:35 INDICATION: bilateral leg weakness . TECHNIQUE: Computed tomography (CT) of the thoracic and lumbar spine was performed without intravenou s contrast. Automated exposure control and iterative reconstruction technique were employed. The dose -length product was 1626.63 mGy-cm. COMPARISON: None FINDINGS: THORACIC SPINE: Scoliosis. Exaggerated thoracic kyphosis. Vertebral body alignment intact. Vertebral body heights pre served. Multilevel degenerative disc disease. No severe central canal or neural foraminal narrowing N o traumatic malalignment or fracture. Biapical pleural scarring. Mild interstitial lung changes. LUMBAR SPINE: Lumbar scoliosis. 5 nonrib-bearing lumbar-type vertebral bodies. Pedicles intact. Grade 1 anterolisth esis at L4-5. Vertebral bodies otherwise aligned. Vertebral body heights preserved. Multilevel degene rative disc disease and disc calcification. Multilevel facet arthropathy. Severe right neural foramin al narrowing at L5-S1. No severe central canal narrowing. Right nephroliths versus vascular calcifica tion in the renal hilum. Atherosclerotic calcifications. Diverticulosis. IMPRESSION: No acute fracture or dislocation detected in the thoracic or lumbar spine. Reviewed, dictated and finalized at location K.
--- NOTE | ~2023-04-20 | CT_ITS ---
EXAMINATION: CT brain wo con DATE: 04/21/2023 16:28 INDICATION: bilateral leg weakness . TECHNIQUE: Computed tomography (CT) of the head was performed without intravenous contrast. The mA wa s adjusted according to patient size. Iterative reconstruction technique was employed. The dose-lengt h product was 605.33 mGy-cm. COMPARISON: 11/07/2017. FINDINGS: No acute intracranial hemorrhage or extra-axial fluid collection. No hydrocephalus, mass, or herniation. No acute ischemic infarct. Unremarkable dural venous sinus attenuation. No acute osseous abnormality. Hyperostosis frontalis. The aerated spaces are clear. Moderate atrophy and chronic white matter change. Atherosclerotic intracranial calcification. Bilater al lens replacements. IMPRESSION: No acute intracranial process. Reviewed, dictated and finalized at location K.
--- NOTE | ~2023-04-20 | XR_ITS ---
EXAM: XR knee LT min 4V DATE: 04/20/2023 21:45 HISTORY: pain and swelling . COMPARISON: None available. FINDINGS: Uncomplicated total knee arthroplasty. Severely decreased mineralization. No fracture or d islocation. No lytic or blastic lesion. Joint spaces are maintained. No erosion or periosteal change. Atherosclerotic calcifications. Small knee joint effusion. IMPRESSION: No acute osseous finding the left knee. No radiographic evidence of hardware related cons ultation. Reviewed, dictated and finalized at location K. IMPRESSION: No acute osseous finding the left knee. No radiographic evidence of hardware related consultation.
--- NOTE | ~2023-04-20 | CT_ITS ---
EXAMINATION: CT cervical spine wo con DATE: 04/21/2023 16:29 INDICATION: bilateral leg weakness TECHNIQUE: Computed tomography (CT) of the cervical spine was performed without intravenous contrast. Automated exposure control and iterative reconstruction technique were employed. The dose-length pro duct was 156.19 mGy-cm. COMPARISON: 11/07/2017. FINDINGS: Exam limited by positioning and nonstandard positioning and the reformats. Vertebral Body Alignment: Intact. Reversed cervical lordosis. Craniocervical and atlantoaxial alignment: Severe degenerative change. Alignment intact. Osseous structures/fracture: No evidence of a lytic or blastic process in the visualized spine. No e vidence of acute fracture. Stable mild anterior wedge deformity T1. Cervical soft tissues: The paraspinal soft tissues planes are maintained. Degenerative changes: Multilevel severe degenerative disc disease and facet arthropathy. No severe ce ntral canal or neural foraminal narrowing.. IMPRESSION: No acute fracture or traumatic malalignment in the cervical spine. Reviewed, dictated and finalized at location K.
[2023-04-20 19:29] VITALS: BP 157/81; PULSE 68; RESP 22; TEMP 36.4; O2SAT 99
[2023-04-20 21:11] VITALS: BP 193/84; PULSE 66; RESP 22; O2SAT 100
[2023-04-20] MEDS: MORPHINE SULFATE (*CRX) 2 MG/ML INJ IV PUSH (21:16)
--- NOTE | 2023-04-20 21:17 | ED.GENADULT ---
HPI - General Adult General Chief complaint: Extremity Problem,Nontraumatic Stated complaint: leg pain Time Seen by Provider: 04/20/23 19:58 History of Present Illness HPI narrative: Patient presents to the emergency department from home with increased left lower extremity pain and swelling. Patient was admitted to the hospital over a week ago with a large joint effusion and an elevated INR. Patient states her INR at that time was 10. She added that the orthopedic surgeon drained the left knee. Pain at that time radiated from the knee up to the low back. She also says that the lower extremity distal to the knee was swollen. Today knee edema noted. She has taken 2 doses of tramadol and 2 doses of oxycodone without improvement of pain. She ambulated around the house once this morning and has not been able to walk since. Denies all other review of systems including shortness of breath chest pain fever. She was taken off her Coumadin for 3 days and restarted back on her original dose. She is concerned that her levels are elevated again. Patient is visibly uncomfortable but overall pleasant. She is accompanied by her daughter who contributes to the history. Related Data Home Medications Medication Instructions Recorded Confirmed ascorbic acid (vitamin C) 1,000 mg 1 gm PO DAILY 05/05/20 04/21/23 tablet calcium carbonate 600 mg calcium 600 mg PO DAILY 05/05/20 04/21/23 (1,500 mg) tablet (Calcium) biotin 5,000 mcg disintegrating 10,000 mcg PO DAILY 02/16/21 04/21/23 tablet cetirizine 10 mg capsule (Zyrtec) 10 mg PO DAILY PRN Allergic 02/16/21 04/21/23 Symptoms warfarin 5 mg tablet 5 mg PO QTUTHSASU 03/25/23 04/21/23 warfarin 7.5 mg tablet 7.5 mg PO 2XW 03/25/23 04/21/23 Allergies Allergy/AdvReac Type Severity Reaction Status Date / Time No Known Allergies Allergy Verified 04/20/23 19:37 Review of Systems Review of Systems: All review of systems negative except for what is documented in the [facility] Past Medical History Medical History Aortic stenosis Moderate Atypical pneumonia CHF (congestive heart failure) Echocardiogram 10/2021: Normal left ventricular systolic function with EF of 65-70%, mild concentric left ventricular hypertrophy, impaired diastolic relaxation grade 1, moderate left atrial enlargement, [id number] mitral valve regurgitation, moderate aortic stenosis with peak gradient 26 mean gradient 14 and valve area 1.14 with mildly calcified valve cusps trace aortic valve regurgitation, mild tricuspid and pulmonic valve regurgitation Chronic kidney disease, stage 3 (moderate) COVID-19 Esophageal varices Essential (primary) hypertension Fatty liver Hepatic cirrhosis Hx of renal calculi ILD (interstitial lung disease) intermediate current use of anticoagulant therapy Mixed hyperlipidemia Osteopenia Paroxysmal A-fib Secondary renal hyperparathyroidism Vitamin D deficiency Surgical History Surgical History History of hip surgery Lt History of hip surgery Rt History of hysterectomy History of repair of right rotator cuff (~2002) History of total left knee replacement (~05/13/18) Status post cataract extraction of both eyes with insertion of intraocular lens Family History Family History Daughter Leukemia Social History Social History Social History: She is . Prior to her hospitalization in the middle March 2023 she lived in her own home. Her youngest son lives with her. Since her recent hospitalization she was in acute rehab and then discharged to her oldest son's home where she is living with him and his . She ambulates with a walker. Code status: Full code Healthcare power of trade mark attorney: Sesar (oldest son) Smoking status: Never smoker [place]
[2023-04-20 21:28] LABS: Basophils Percent Auto 0.2 % (0.2-1.2); Eosinophils Absolute Auto 0.1 K/mm3 (0-0.3); Hematocrit 35.8 % (37.0-47.0); Hemoglobin 11.8 g/dL (12.0-15.0); Immature Granulocyte Absolute 0.04 K/mm3 (0.00-0.031); Immature Granulocyte Percent A 0.4 % (0-0.5); Lymphocytes Absolute Auto 1.74 K/mm3 (0.9-3.2); Lymphocytes Percent Auto 19.1 % (18.3-44.2); Mean Corpuscular Hemoglobin 31.6 pg (26-34); Mean Corpuscular Volume 95.7 fl (80-100); Mean Platelet Volume 9.8 fl (7.4-10.4); Monocytes Absolute Auto 0.4 K/mm3 (0.1-0.6); Monocytes Percent Auto 4.3 % (2.6-8.5); Neutrophils Absolute Auto 6.8 K/mm3 (1.3-6.7); Platelet Count Result 162 k/mm3 (150-375); Red Blood Count 3.74 M/mm3 (4.2-5.4); Red Cell Distribution Width 15.6 % (11.5-14.5); White Blood Count 9.1 K/mm3 (4.5-10.0)
[2023-04-20 21:38] LABS: Alanine Aminotransferase 20 U/L (6-35); Albumin Level 3.9 g/dL (3.5-5.1); Alkaline Phosphatase 169 U/L (38-126); Anion Gap 11 mmol/L (8-16); Aspartate Amino Transferase 37 U/L (14-36); Bilirubin,Total 0.9 mg/dL (0.2-1.3); Blood Urea Nitrogen 27 mg/dL (7-17); Calcium 8.8 mg/dL (8.4-10.2); Carbon Dioxide 23 mmol/L (22-30); Chloride 103 mmol/L (98-107); Estimated CRCL calculation 31 ml/min; Estimated Glomerular Filt Rate 47; Glucose 126 mg/dL (65-110); Potassium 3.6 mmol/L (3.4-5.0); Sodium 137 mmol/L (137-145)
[2023-04-20 21:43] LABS: INR 4.2; Prothrombin Time 44.3 Seconds (11.1-14.7)
[2023-04-20 21:55] LABS: D Dimer 1.29 ug/mL (<0.48)
[2023-04-20 22:31] VITALS: BP 171/55; PULSE 70; RESP 20; O2SAT 98
[2023-04-20] MEDS: HYDROmorphone HCL INJ (*CRX) 1 MG/ML SYR 0.5 MG IV PUSH ×2 (22:40→23:42)
[2023-04-20 23:06] VITALS: BP 176/96; PULSE 69; RESP 20; O2SAT 97
--- NOTE | 2023-04-20 23:22 | PC.NURSE ---
Assumed care from CARINA Martinez at this time.
[2023-04-21] VITALS (25 sets, daily range): BP systolic 90–171; BP diastolic 39–86; PULSE 53–132; RESP 12–24; TEMP 35.6–36.6; O2SAT 96–100; BMI 30.2
--- NOTE | 2023-04-21 01:26 | ECG_ITS ---
Measurements Intervals [place] Rate: 62 P: 84 WI: 185 QRS: -17 QRSD: 85 T: 9 QT: 451 QTc: 458 Interpretive Statements SINUS RHYTHM EARLY PRECORDIAL R/S TRANSITION BASELINE ARTIFACT- I, II, AVR, AVL, AVF, V4 BORDERLINE ECG NO PREVIOUS ECG AVAILABLE FOR COMPARISON Electronically Signed On 04-21-2023 7:06:40 CDT by Adalid Ashley D.O.
--- NOTE | 2023-04-21 01:52 | PM.IMHP ---
H&P: HPI History of Present Illness Date/Time: 04/21/23 01:52 Chief Complaint: Left knee and leg pain Narrative: 88-year-old female with past medical history of paroxysmal AFib on Coumadin, chronic kidney disease, multiple joint replacements, essential hypertension, Mckeon and hyperlipidemia who presented to the ER with left knee pain. The patient was recently hospitalized 03/25 through 03/30 due to left knee hemarthrosis with large lobulated intermuscular hematoma and the left vastus lateralis muscle and between the the left greater trochanter in the more superficial distal left gluteus megan. The patient's INR at that time was 10. She reports that she was at acute rehab until about 4 days ago. She was discharged home and is staying with her son and [id number] at their home. On the she woke up with left knee pain. She initially thought the pain was due to her sleeping in 1 position but when she is up and walking her pain gradually got worse. She is on multiple pain medications at home she took both her tramadol and her oxycodone without relief in symptoms. She reports that the pain is radiating from her left knee up into her left hip. She denies any new injuries. She was started back on her Coumadin 5 mg 5 days a week and 7.5 mg on the weekends 3 or 4 days ago when she was discharged from the [facility]. She was started back on her previously known doses. The patient did receive IV Dilaudid in the ER. When she arrived to the medical floor she did have some vomiting. At the time of my evaluation she is complaining of bilateral lower rib pain. She states that the pain is deep inside and not reproducible. The pain is in her bottom of her rib cage near diaphragm. She associated set to pain similar to when she had a prior atypical pneumonia with pleural effusions when she had to have what sounds like possible pleurodesis many years ago. She denies any significant cough, congestion or shortness of breath. The pain ferris reports the rib pain started after she was in the ER but before she started vomiting. Patient's blood pressures in the ER ranged from 150 systolic up to 190 systolic. She did not take her evening home antihypertensives. She received her evening antihypertensives while in the ER. Her blood pressures have improved to 171/86. She reports that she did have 3 loose stools yesterday. She denies any hematochezia or melena. She denies any hematemesis. She states that the orthopedic surgeon told her last week when she followed up that she looks like she was iron deficient just by exam and recommended that she get [id number] iron supplements. Her daughter in-law head when brought the iron supplements but she has not started taking them. The patient's hemoglobin has climbed from 7.7 up to 11.8. She does report that her urine has been darker than usual. She was started back on her Lasix 3 days ago but she only reports small amounts of urine output that is very dark in color. She has had decreased appetite. She denies any fevers or chills. Addendum: The patient states that she is on oxycodone at home/Percocet. However review of external cool medical records the patient was discharged to the [facility] on tramadol. And she had a 1 time prescription for #20 [place] 10/325 filled March 23. Patient is not on oxycodone at home. Review of Systems Review of Systems: 12 systems were reviewed with pertinent positives and negatives per HPI. Except as documented in the HPI, all other systems were reviewed and are negative. [facility] Past Medical History Medical History (Updated 04/21/23 @ 03:03 by Cora Correa DO) Aortic stenosis Moderate Atypical pneumonia CHF (congestive heart failure) Echocardiogram 10/2021: Normal left ventricular systolic function with EF of 65-70%, mild concentric left ventricular hypertrophy, impaired diastolic relaxation grade 1, moderate left atrial enlargement, [id number] mitral valve
[2023-04-21] MEDS: METOPROLOL TARTRATE INJ 5 MG/5 ML VIAL IV PUSH ×2 (03:17→04:50)
[2023-04-21 06:05] LABS: Hematocrit 31.6 % (37.0-47.0); Hemoglobin 10.4 g/dL (12.0-15.0); Mean Corpuscular HGB Conc 32.9 g/dl (32-36); Mean Corpuscular Hemoglobin 31.4 pg (26-34); Mean Corpuscular Volume 95.5 fl (80-100); Mean Platelet Volume 10.1 fl (7.4-10.4); Platelet Count Result 180 k/mm3 (150-375); Red Blood Count 3.31 M/mm3 (4.2-5.4); Red Cell Distribution Width 15.7 % (11.5-14.5); White Blood Count 8.1 K/mm3 (4.5-10.0)
--- NOTE | 2023-04-21 06:05 | ECG_ITS ---
Measurements Intervals [place] Rate: 107 P: DE: 0 QRS: -4 QRSD: 88 T: 26 QT: 363 QTc: 485 Interpretive Statements ATRIAL FIBRILLATION WITH RAPID VENTRICULAR RESPONSE ABNORMAL ECG COMPARED TO ECG 04/21/2023 01:41:22 ATRIAL FIBRILLATION NOW PRESENT Electronically Signed On 04-21-2023 7:07:58 CDT by Adalid Ashley D.O.
[2023-04-21 06:15] LABS: Anion Gap 9 mmol/L (8-16); Blood Urea Nitrogen 28 mg/dL (7-17); Calcium 8.7 mg/dL (8.4-10.2); Carbon Dioxide 26 mmol/L (22-30); Chloride 100 mmol/L (98-107); Estimated CRCL calculation 34 ml/min; Estimated Glomerular Filt Rate 53; Glucose 129 mg/dL (65-110); Potassium 4.1 mmol/L (3.4-5.0); Sodium 135 mmol/L (137-145)
[2023-04-21 06:18] LABS: INR 4.2; Prothrombin Time 44.7 Seconds (11.1-14.7)
[2023-04-21 06:22] LABS: Transferrin 191 mg/dL (206-381)
[2023-04-21 06:41] LABS: Iron 84 ug/dL (37-170)
[2023-04-21 06:46] LABS: Percent Iron Saturation 26 % (20-50); Troponin I 0.034 ng/mL (0.000-0.034)
[2023-04-21] MEDS: AMIODARONE 150 MG/D5W 100 ML 150 MG/100 ML BAG 600 MG IV CONT (06:51)
--- NOTE | 2023-04-21 07:00 | PC.NURSE ---
This patient, Terrie Humphries, was received from [id number] on 04/21/23 at 0646. Report received from CARINA Segundo. Patient/family oriented to unit policies and routines
[2023-04-21] MEDS: AMIODARONE 360 MG/D5W 200 ML 360 MG/200 ML BAG 33.33 MG IV CONT (07:04)
[2023-04-21 07:38] LABS: Folic Acid 8.3 ng/mL (2.76->20); Vitamin B12 > 1000.0 pg/mL (239-931)
[2023-04-21] MEDS: CALCIUM CARBONATE (OSCAL) 500 MG TABLET PO (09:18)
[2023-04-21] MEDS: ASCORBIC ACID 500 MG TABLET 1000 MG PO (09:18)
[2023-04-21] MEDS: traMADol HCL (*CRX) 50 MG TABLET PO ×2 (09:18→17:50)
[2023-04-21] MEDS: LORATADINE 10 MG TABLET PO (09:19)
[2023-04-21] MEDS: PROPRANOLOL HCL 20 MG TABLET PO ×2 (09:19→20:49)
[2023-04-21] MEDS: PANTOPRAZOLE 40 MG TABLET PO ×2 (09:19→17:52)
[2023-04-21 09:21] LABS: Troponin I 0.031 ng/mL (0.000-0.034)
--- NOTE | 2023-04-21 10:41 | PM.IMPN ---
Progress Note: A&P Assessment and Plan (1) Localized swelling of lower extremity: Code(s): M79.89 - Other specified soft tissue disorders Status: Acute (2) Elevated INR: Code(s): R79.1 - Abnormal coagulation profile Status: Acute (3) Paroxysmal A-fib: Code(s): I48.0 - Paroxysmal atrial fibrillation Status: Acute (4) Supratherapeutic INR: Code(s): R79.1 - Abnormal coagulation profile Status: Acute (5) Hemarthrosis, left knee: Code(s): M25.062 - Hemarthrosis, left knee Status: Acute (6) Hematoma of left thigh: Qualifiers: Encounter type: initial encounter Qualified Code(s): S70.12XA - Contusion of left thigh, initial encounter Code(s): S70.12XA - Contusion of left thigh, initial encounter Status: Acute (7) Anemia: Qualifiers: Anemia type: unspecified type Qualified Code(s): D64.9 - Anemia, unspecified Code(s): D64.9 - Anemia, unspecified Status: Acute (8) Loose stools: Code(s): R19.5 - Other fecal abnormalities Status: Acute (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 Her clinical picture is suspicious for recurrent heme arthrosis and or hematoma. The patient again has supratherapeutic INR but not nearly as elevated as prior with INR 4.1 compared to prior value of 10. Coumadin will be placed on hold. The risk versus benefits of resuming Coumadin after resolution of current problem and needs to occur between the patient and family. Patient is having nonspecific rib pain. EKG was performed and was unremarkable. Pain is nonspecific. Does not seem to be cardiac in nature. Could possibly be due to recent vomiting. Will monitor. Is less likely to be due to DVT or pulmonary embolism given the patient has a supratherapeutic INR. Also the patient is not having tachycardia, hypoxia and tachypnea which was suggest pulmonary embolism which is less likely. Patient is being monitored on telemetry. Patient D-dimer is mildly above the cutoff for normal but when adjusted for age is within normal limits. During last hospitalization the patient had anemia of acute blood loss. Her hemoglobin today is significantly elevated from prior. She has not had any iron supplements as of yet. Will check anemia labs. I believe the significant increase in the patient's hemoglobin is likely due to a combination of increased erythropoiesis and hemoconcentration. Will place patient on IV fluid hydration and hold her Lasix given the report of darker urine and decreased urine output. Her concentrated urine could be due to her having multiple loose stools on the . She reports no stool output yesterday. Cannot tell specifically if the patient was on antibiotic therapy during her prior hospitalization but I do not want to jump to the conclusion of infectious diarrhea considering she has not had any recurrence of loose stools. In fact I think part of the patient's loose stools may be due to withdrawal from narcotic therapy since she has not had a refill on her narcotics since mid March. Will continue to monitor. Will repeat CBC if evidence of infection occurs will consider adding stool studies at that time. The patient is on anticoagulation for paroxysmal AFib but she is currently in sinus rhythm. Will continue monitor heart rate on telemetry. EKG was obtained to evaluate patient's QT interval given her need for Zofran. I suspect the patient's nausea was due to narcotic administration. Will discontinue Dilaudid. Will continue tramadol and oxycodone and monitor. Patient's blood pressures are elevated above her baseline. This is likely in part due to her u
--- NOTE | 2023-04-21 11:03 | PM.CNCAR ---
Assessment and Plan Assessment and plan (1) Atrial fibrillation with RVR: Code(s): I48.91 - Unspecified atrial fibrillation Status: Acute Assessment and Plan: Regards to atrial fibrillation with RVR, she came into the hospital sinus rhythm but then went into AFib with RVR. Apparently was started on amiodarone. Patient apparently has interstitial lung disease and therefore amiodarone will be a bad option here. Will discontinue IV amiodarone. Keep rate control with propranolol. Adjust medicine as needed. (2) Supratherapeutic INR: Code(s): R79.1 - Abnormal coagulation profile Status: Acute Assessment and Plan: INR for the admission. Patient came into the hospital with left knee pain. She had left hemarthrosis last month in setting of supratherapeutic INR. Warfarin on hold now. History of Present Illness History of Present Illness Consult date/time: Date of service 04/21/23 11:03 Requesting physician: Cora Correa DO Consult reason: atrial fibrillation Reason For Visit: Hemarthrosis Narrative: This is a 88-year-old female who follows up with Dr. Conner and with a past medical history of paroxysmal atrial fibrillation on warfarin, She had a previous history of thoracotomy as well. Other history of amiodarone toxicity with evidence of interstitial lung disease, hypertension, hyperlipidemia, DVT, chronic kidney disease, alfonso. Apparently patient was hospitalized in March 2023 with left hemarthrosis in setting of supratherapeutic INR. Patient was sent to rehabilitation was started on warfarin 5 days ago. Apparently woke up with pain in the left knee again and presented due to the emergency room. She went into AFib with RVR. Currently heart rate controlled on IV amiodarone drip. Patient did experience chest pain while the AFib with RVR happening but currently pain free. She gets short-winded when she talks. Denies lower extremity edema syncope or dizziness. INR on admission 4, otherwise unremarkable labs. Echocardiogram December 2022 ejection fraction 53%, mild LVH, moderate left atrial enlargement, mild mitral regurgitation, moderate aortic stenosis with mean gradient 17 and valve area 1 cm2, RVSP 25, mild tricuspid regurgitation. Lexiscan stress test 2019 ejection fraction 70%, no evidence of ischemia. Review of Systems Constitutional: Constitutional: Denies chills, Denies fever(s) and Denies poor appetite Comments: Feels tired Eyes: Eyes: Denies eye discharge, Denies loss of vision and Denies eye pain ENT: Denies dizziness, Denies epistaxis, Denies nasal congestion and Denies sore throat Cardiovascular: Cardiovascular: Reports chest pain, Denies syncope, Denies pedal edema, Denies leg edema, Reports palpitations, Reports dyspnea, Reports dyspnea on exertion and Denies orthopnea Respiratory: Respiratory: Denies cough, Reports dyspnea, Reports dyspnea on exertion and Denies wheezing Gastrointestinal: Gastrointestinal: Denies abdominal pain, Denies diarrhea, Denies nausea and Denies vomiting Genitourinary: Genitourinary: Denies hematuria, Denies genital lesions and Denies dysuria Musculoskeletal: Musculoskeletal: Reports arthralgias, Reports joint swelling and Denies numbness Integumentary/Breasts: Skin/Breast: Denies pruritus and Denies rash Neurologic: Denies dizziness, Denies syncope, Denies loss of vision and Denies numbness Psychiatric: Psychiatric: Denies anxiety and Denies depression Endocrine: Endocrine: Denies cold intolerance, Denies heat intolerance and Denies palpitations Hematologic/Lymphatic: Hematologic/Lymphatic: Denies easy bleeding and Denies easy bruising Allergic/Immunologic: Allergic/Immunologic: Denies urticaria and Denies wheezing PMFSH Past Medical History Medical History Aortic stenosis Moderate Atypical pneumonia CHF (congestive heart failure) Echocardiogram 10/2021: Normal left ventricula
[2023-04-21 13:17] LABS: Troponin I 0.027 ng/mL (0.000-0.034)
[2023-04-21] MEDS: ONDANSETRON INJ 4 MG/2 ML VIAL IV PUSH (14:17)
--- NOTE | 2023-04-21 15:44 | ECG_ITS ---
Measurements Intervals [place] Rate: 62 P: 56 [place]: 209 QRS: -37 QRSD: 92 T: -3 QT: 496 QTc: 505 Interpretive Statements SINUS RHYTHM LEFT AXIS DEVIATION BORDERLINE AV CONDUCTION DELAY LEFT VENTRICULAR HYPERTROPHY EARLY PRECORDIAL R/S TRANSITION BORDERLINE T WAVE ABNORMALITY- INFERIOR LEADS PROLONGED QT INTERVAL BASELINE ARTIFACT- I, II, III, AVR, AVL, AVF ABNORMAL ECG COMPARED TO ECG 04/21/2023 06:21:39 SINUS RHYTHM NOW PRESENT PROLONGED QT INTERVAL NOW PRESENT Electronically Signed On 04-21-2023 19:41:32 CDT by Adalid Ashley D.O.
--- NOTE | 2023-04-21 18:37 | PC.NURSE ---
Patient indicated at 1530 that she was not able to feel her lower extremities, and that she cannot recall when the lack of sensation began. Focused assessment was completed, and noted that tactile sensation is absent to lower abdomen, bilateral thighs, lower legs, and feet. Dr. Newman was notified, and orders obtained for stat CTs of brain, cervical, thoracic, and lumbar spine, and neurology consult. Patient continues to be oriented x4, denies shortness of breath. Patient does complain of pain to the right rib cage. Awaiting CT results for further instructions.
--- NOTE | 2023-04-21 22:25 | PM.TDS ---
Transfer Discharge Sum: Prov Provider Date of admission: 04/20/23 23:06 Primary care physician: Milton Harman MD Admitting clinician: Cora Correa DO Consults: 04/20/23 Consult to Physician Routine Comment: Consulting Provider: Eber Johansen manager call/MD group to consult: [facility] - [facility] Reason for consultation: left knee hemarthrosis Has provider been notified: Yes 04/21/23 Consult to Physician Routine Comment: Consulting Provider: Yamileth Ellison manager call/MD group to consult: [facility] Cardiology Reason for consultation: AFib RVR Has provider been notified: Yes Consult to Physician Routine Comment: Consulting Provider: Bernardo Vaz Reason for consultation: bilateral leg weakness Has provider been notified: Yes Attending physician on discharge: Manny Newman Discharging clinician: Cora Correa Anticipated date of transfer: 04/21/23 Receiving physician/facility: [facility]-- Dr. 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 Acute urinary retention Paroxysmal AFib with RVR Transfer Discharge Sum: Med Medications Active and Home Medications: Home Medications ascorbic acid (vitamin C) 1,000 mg tablet 1 gm PO DAILY 05/05/20 [History Confirmed 04/21/23] calcium carbonate 600 mg calcium (1,500 mg) tablet (Calcium) 600 mg PO DAILY 05/05/20 [History Confirmed 04/21/23] biotin 5,000 mcg disintegrating tablet 10,000 mcg PO DAILY 02/16/21 [History Confirmed 04/21/23] cetirizine 10 mg capsule (Zyrtec) 10 mg PO DAILY PRN Allergic Symptoms 02/16/21 [History Confirmed 04/21/23] albuterol sulfate 90 mcg/actuation aerosol inhaler (Ventolin HFA) 2 inh inhalation Q6H PRN shortness of breath or wheezing #8.5 grams 11/17/21 [Rx Confirmed 04/21/23] propranolol 20 mg tablet 20 mg PO Q12H 3 months #180 tabs 08/30/22 [Rx Confirmed 04/21/23] benzonatate 200 mg capsule 200 mg PO TID PRN cough #20 caps 10/08/22 [Rx Confirmed 04/21/23] tramadol 50 mg tablet 50 mg PO Q6H PRN pain #90 tabs 10/08/22 [Rx Confirmed 04/21/23] furosemide 20 mg tablet (Lasix) 20 mg PO QAM #30 tabs 11/29/22 [Rx Confirmed 04/21/23] omeprazole 20 mg capsule,delayed release 20 mg PO BID #180 caps 12/11/22 [Rx Confirmed 04/21/23] warfarin 5 mg tablet 5 mg PO QTUTHSASU 03/25/23 [History Confirmed 04/21/23] warfarin 7.5 mg tablet 7.5 mg PO 2XW 03/25/23 [History Confirmed 04/21/23] oxycodone 5 mg tablet 10 mg PO Q4H PRN Pain Rated 7-10 #20 tabs 03/30/23 [Rx Confirmed 04/21/23] Active Medications Albuterol (Albuterol Sulfate (*Sp) Aerosol 1 Puff) 2 puff INHALATION Q6H PRN PRN Reason: shortness of breath or wheezing Ascorbic Acid (Ascorbic Acid 500 Mg Tablet) 1,000 mg PO DAILY [facility] Last Admin: 04/21/23 09:18 Dose: 1,000 mg Benzonatate (Benzonatate 100 Mg Capsule) 200 mg PO TID PRN PRN Reason: cough Calcium Carbonate (Calcium Carbonate (Oscal) 500 Mg Tablet) 500 mg PO QAM [facility] Last Admin: 04/21/23 09:18 Dose: 500 mg Sodium Chloride (Normal Saline Iv) 250 mls @ 30 mls/hr IV CONT .Q8H20M STA Stop: 04/22/23 05:24 Loratadine (Loratadine 10 Mg Tablet) 10 mg PO QAM PRN PRN Reason: Allergic Symptoms Last Admin: 04/21/23 09:19 Dose: 10 mg Ondansetron HCl (Ondansetron Inj 4 Mg/2 Ml Vial) 4 mg IV PUSH Q6H PRN PRN Reason: Nausea And Vomiting Last Admin: 04/21/23 14:17 Dose: 4 mg Oxycodone HCl (Oxycodone Hcl (*Crx) 5 Mg Tab Ir) 10 mg PO Q4H PRN PRN Reason: Pain Rated 7-10 Pantoprazole Sodium (Pantoprazole 40 Mg Tablet) 40 mg PO BID [facility] Last Admin: 04/21/23 17:52 Dose: 40 mg Propranolol HCl (Propranolol Hcl 20 Mg Tablet) 20 mg PO Q12HR [facility] Last Admin: 04/21/23 20:49 Dose: 20 mg Tramadol HCl (Tramadol Hcl (*Crx) 50 Mg Tablet) 50 mg PO Q6H PRN PRN Reason: pain 4-6 Last Admin: 04/21/23 17:50 Dose: 50 mg Transfer Dischar
[2023-04-21] MEDS: PHYTONADIONE ADULT INJ 10 MG in DEXTROSE 5% IN WATER 50 ML 100 MG IVPB (22:46)
--- NOTE | 2023-04-21 23:03 | PC.NURSE ---
FFP hung with air evac tubing, patient being flown to [facility] ER. Air Evac nurses to monitor administration.
== END 2023-04-21 23:15 | disposition home or self-care (01) ==
LOC: ANHED 23:13 → ANH3MEDSUR 23:44 → ANHIMU 04-21 06:42
PROVIDERS: Admitting Provider Internal Medicine; Emergency Provider Emergency Medicine; PCP Family Medicine; Visit Provider Internal Medicine
DX: M25.062 Hemarthrosis, left knee (principal); R79.1 Abnormal coagulation profile; S70.12XA Contusion of left thigh, initial encounter; I13.0 Hypertensive heart and chronic kidney disease with heart failure and stage 1 through stage 4 chronic kidney disease, or unspecified chronic kidney disease; N18.30 Chronic kidney disease, stage 3 unspecified; I50.30 Unspecified diastolic (congestive) heart failure; D63.1 Anemia in chronic kidney disease; I35.0 Nonrheumatic aortic (valve) stenosis; R07.81 Pleurodynia; K75.81 Nonalcoholic steatohepatitis (NASH); K74.60 Unspecified cirrhosis of liver; I48.0 Paroxysmal atrial fibrillation; R94.31 Abnormal electrocardiogram [ECG] [EKG]; N25.81 Secondary hyperparathyroidism of renal origin; J84.9 Interstitial pulmonary disease, unspecified; E78.2 Mixed hyperlipidemia; E55.9 Vitamin D deficiency, unspecified; Z86.16 Personal history of COVID-19; Z79.01 Long term (current) use of anticoagulants; Z79.51 Long term (current) use of inhaled steroids; Z79.891 Long term (current) use of opiate analgesic; Z79.899 Other long term (current) drug therapy
CPT/HCPCS: 36415; 36430; 70450; 72125; 72128; 72131; 73564; 80048; 80053; 82607; 82728; 82746; 83540; 83550; 84443; 84466; 84484; 85025; 85027; 85380; 85610; 85730; 86900; 86901; 93005; 96374; 96375; 96376; 99285; A9270; G0378; J0282; J1170; J2270; J2405; J3430; P9017

== ENCOUNTER 2023-06-17 19:08 | Inpatient (IN) | payer MEDICARE, OTHER, SELFPAY ==
[2023-06-17] VITALS (32 sets, daily range): BP systolic 85–109; BP diastolic 35–76; PULSE 70–89; RESP 13–23; TEMP 37; O2SAT 92–100
--- NOTE | ~2023-06-17 | MR_ITS ---
EXAMINATION: MR lumbar spine wo con DATE: 06/28/2023 11:03 INDICATION: Severe lumbar pain. TECHNIQUE: Magnetic resonance imaging (MRI) of the lumbar spine was performed without intravenous con trast. Sequences included sagittal T2-weighted FSE, sagittal T2-weighted FS FSE, sagittal T1-weighted FSE, and axial T2-weighted FSE. COMPARISON: Lumbar spine MRI 02/25/2016 FINDINGS: There is 3 mm anterolisthesis of L4 on L5. Vertebral body heights are normal. There is mode rately decreased disc height at L5-S1. There is increased T2-weighted signal intensity in the spinal cord. The conus medullaris is at L2. The following disc levels are specifically discussed: L1-L2: The disc is bulging. There is moderate bilateral facet joint osteoarthritis. There is mild katherin ateral neural foraminal stenosis. There is no central canal stenosis. L2-L3: The disc is bulging. There is mild right and severe left facet joint osteoarthritis. There is mild left neural foraminal stenosis. There is mild central canal stenosis. L3-L4: The disc is bulging. There is severe bilateral facet joint osteoarthritis. There is mild bilat eral neural foraminal stenosis. There is mild central canal stenosis. L4-L5: The disc is bulging and has an annular fissure. There is severe bilateral facet joint osteoart hritis. There is mild bilateral neural foraminal stenosis. There is no central canal stenosis. L5-S1: The disc is bulging and has an annular fissure. There is severe bilateral facet joint osteoart hritis. There is moderate right and mild left neural foraminal stenosis. There is mild central canal stenosis. IMPRESSION: 1. Increased T2-weighted signal intensity in the spinal cord, consistent with edema. Cervical and tho racic spine MRI without and with contrast is recommended. 2. Moderate lumbar spondylosis. Reviewed, dictated and finalized at location A. ITURE DIPPER IMPRESSION: 1. Increased T2-weighted signal intensity in the spinal cord, consistent with e katelynn. Cervical and thoracic spine MRI without and with contrast is recommended. 2. Moderate lumbar spondylosis.
--- NOTE | ~2023-06-17 | XR_ITS ---
EXAMINATION: XR abdomen/kub 1V DATE: 06/25/2023 15:23 INDICATION: Kidney stones. TECHNIQUE: A supine view of the abdomen was obtained. COMPARISON: CT abdomen and pelvis 06/17/2023 FINDINGS: There are no dilated loops of bowel. There is instrumentation of the femora. There are two 3 mm stones in right kidney. IMPRESSION: 1. Small right kidney stones. Reviewed, dictated and finalized at location A. RICT ADMINISTRATIVE ASSISTANT
--- NOTE | ~2023-06-17 | CT_ITS ---
EXAMINATION: CT abdomen pelvis w con DATE: 06/17/2023 21:08 INDICATION: RUQ Pain and urinary retention TECHNIQUE: Computed tomography (CT) of the abdomen and pelvis was performed with 100 mL Omnipaque-350 intravenous contrast. Automated exposure control and iterative reconstruction technique were employe d. The dose-length product was 1008.47 mGy-cm. COMPARISON: 06/29/2022. FINDINGS: Lower thorax: Heavy coronary artery calcification. Mitral annulus calcification. Moderate chronic suki earing interstitial changes in the lung bases. Liver: Enlarged. Nodular liver border. Biliary/Gallbladder: Trace pericholecystic fluid, otherwise normal. No bile duct dilation. Pancreas: No mass or duct dilation. Spleen: Enlarged. Granulomatous calcifications. Adrenals:No mass. Kidneys: Left renal atrophy. Bilateral cortical thinning. Punctate nonobstructing bilateral calculi. Bilateral pelviectasis, mild ureterectasis, and hyperemia of the urothelium GI tract: Small hiatal hernia. Moderate distal esophageal and gastric wall edema. Mild dilation of th e rectum up to 5.5 cm, by formed stool, with mild adjacent wall inflammation. No small bowel dilation . Normal appendix. Diverticulosis without diverticulitis. Mesentery/Peritoneum: Mild ascites. No mass or free air. Retroperitoneum: No mass. Atherosclerotic abdominal aortic and/or arterial calcifications. Pelvis: Partial obscuration by metal artifact. Surgically absent uterus. The bladder is partially dec ompressed by Christy catheter. Bladder wall edema. Soft Tissues: Mild body wall edema. Bones: No acute osseous finding. Uncomplicated appearing, incompletely visualized bilateral femoral fixation hardware. IMPRESSION: Chronic interstitial lung disease. Moderate esophagitis/gastritis. Hepatosplenomegaly and cirrhosis. Mild ascites. Mild pericholecystic fluid, and nonspecific finding in the setting of chronic liver disease. Moderate cystitis, with findings suggestive of bilateral ascending infection. Mild fecal impaction, with adjacent mild bowel wall inflammatory change. Early stercoral colitis is n ot excluded. Reviewed, dictated and finalized at location K. LE GIRL IMPRESSION: Chronic interstitial lung disease. Moderate esophagitis/gastritis. Hepatosplenomegaly and cirrhosis. Mild ascites. Mild pericholecystic fluid, and nonspecific finding in the setting of chronic l iver disease. Moderate cystitis, with findings suggestive of bilateral ascending infection. Mild fecal impaction, with adjacent mild bowel wall inflammatory change. Early stercoral colitis is not excluded.
--- NOTE | ~2023-06-17 | XR_ITS ---
EXAMINATION: XR chest 1V portable Exam Date/Time: 06/17/2023 20:00 MANAGER FOOD SAFETY HISTORY: RUQ pain; CHF, HTN, A fib Comparison: 12/02/2020. RESULT: Lines, tubes, and devices: None. Lungs and pleura: Moderate diffuse reticular opacities, similar to the prior study. No focal consoli dation. Cardiomediastinal silhouette: Stable. Other: No acute osseous or upper abdominal finding. IMPRESSION: Stable chronic interstitial lung disease. Reviewed, dictated and finalized at location K. GER FOOD SAFETY
--- NOTE | ~2023-06-17 | XR_ITS ---
EXAMINATION: XR chest PICC line Exam Date/Time: 06/17/2023 21:37 METAL HANGING HELPER HISTORY: S/P R IJ CL Comparison: Same date at 8:05 PM. RESULT: Lines, tubes, and devices: New right IJ central line terminating at the cavoatrial junction. Lungs and pleura: Stable moderate diffuse interstitial opacities. Cardiomediastinal silhouette: Stable. Other: No acute osseous or upper abdominal finding. IMPRESSION: Right IJ central line, in good position. Reviewed, dictated and finalized at location K. L HANGING HELPER
--- NOTE | ~2023-06-17 | XR_ITS ---
EXAMINATION: XR foot LT min 3V DATE: 06/18/2023 13:30 INDICATION: Unstable left heel ulcer TECHNIQUE: Dorsoplantar, two oblique and lateral views of the left foot were obtained. COMPARISON: None. FINDINGS: Diffuse osteopenia. Alignment is normal. No fracture. Moderate polyarticular osteoarthritis involving multiple joints throughout the left foot. Small Achilles and plantar calcaneal spurs. No cortical er osions or focal osteolysis suspicious for osteolytic myelitis. Bandaging material posterior to the he el. No soft tissue gas or radiopaque foreign bodies. IMPRESSION: 1. No soft tissue gas or evident osteomyelitis. 2. 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 Reviewed, dictated and finalized at location A. GER PLANNING
--- NOTE | ~2023-06-17 | US_ITS ---
EXAMINATION: US right upper quadrant DATE: 06/29/2023 10:26 INDICATION: Right upper quadrant abdominal pain. Gallbladder distention. TECHNIQUE: Multiple grayscale and Doppler ultrasound images of the abdomen were obtained. COMPARISON: CT abdomen and pelvis 06/28/2023 FINDINGS: The visualized portions of the head and body of the pancreas are normal. The liver demonstr ates coarsened echotexture, consistent with cirrhosis. There is normal flow in main portal vein. The gallbladder is distended and contains sludge. No gallstones or gallbladder wall thickening. There is no sonographic Escobar sign. The common duct is normal and measures 6 mm. IMPRESSION: 1. Gallbladder sludge. Gallbladder distention may be secondary to fasting. No gallbladder wall thicke abby or sonographic Escobar sign to suggest acute cholecystitis. 2. Cirrhosis of the liver. Reviewed, dictated and finalized at location A. R BANDER HAND IMPRESSION: 1. Gallbladder sludge. Gallbladder distention may be secondary to fasting. No g allbladder wall thickening or sonographic Escobar sign to suggest acute cholecys titis. 2. Cirrhosis of the liver.
--- NOTE | ~2023-06-17 | US_ITS ---
EXAMINATION: US renal BI DATE: 06/26/2023 21:33 INDICATION: bilateral pyelonephritis TECHNIQUE: Multiple grayscale and Doppler ultrasound images of the kidneys were obtained. COMPARISON: None. FINDINGS: The right kidney measures 9.2 x 4.4 x 5.4 cm. The left kidney measures 8.3 x 3.2 x 3.2 cm. The kidney s demonstrate normal parenchymal echogenicity. There is mild right pelvicaliectasis. The bladder is d ecompressed by a Christy catheter. IMPRESSION: Mild right pelvicaliectasis. Reviewed, dictated and finalized at location K. CTOR PATIENT ACCOUNTING
--- NOTE | ~2023-06-17 | MR_ITS ---
EXAMINATION: MR cervical spine wo/w con DATE: 06/28/2023 18:30 INDICATION: Back pain. TECHNIQUE: Magnetic resonance imaging (MRI) of the cervical spine was performed without and with 17 m L MultiHance intravenous contrast. COMPARISON: Cervical spine MRI 06/18/2015 FINDINGS: There is 2 mm anterolisthesis of C3 on C4 and 2 mm retrolisthesis of C4 on C5 and C5 on C6. There is mild chronic anterior wedging of C5, T1, T3, and T4. There is severely decreased disc heigh t from C3-C4 through C6-C7. The spinal cord signal intensity is normal in cervical spine. The followi ng disc levels are specifically discussed: C2-C3: There is a central protrusion. There is mild bilateral uncovertebral joint osteoarthritis. The re is severe bilateral facet joint osteoarthritis. There is no neural foraminal stenosis. There is no central canal stenosis. C3-C4: The disc does not extend beyond the endplate margin. There is moderate bilateral uncovertebral joint hypertrophy. There is severe bilateral facet joint osteoarthritis. There is mild bilateral neisha ral foraminal stenosis. There is no central canal stenosis. C4-C5: The disc is bulging. There is mild right and severe left uncovertebral joint hypertrophy. Ther e is mild bilateral facet joint osteoarthritis. There is mild right and moderate left neural foramina l stenosis. There is moderate central canal stenosis with ventral and dorsal indentation of the spina l cord. C5-C6: The disc is bulging. There is severe bilateral uncovertebral joint osteoarthritis. There is se socorro bilateral facet joint osteoarthritis. There is severe right and mild left neural foraminal steno sis. There is moderate central canal stenosis with ventral and dorsal indentation of the spinal cord. C6-C7: The disc is bulging. There is severe bilateral uncovertebral joint osteoarthritis. There is mo derate bilateral facet joint osteoarthritis. There is mild bilateral neural foraminal stenosis. There is mild central canal stenosis. C7-T1: The disc does not extend beyond the endplate margin. There is no uncovertebral joint osteoarth ritis. There is severe bilateral facet joint osteoarthritis. There is mild bilateral neural foraminal stenosis. There is no central canal stenosis. IMPRESSION: 1. Severe cervical spondylosis, worsened from 06/18/2015. Reviewed, dictated and finalized at location E. SCALDER
--- NOTE | ~2023-06-17 | NM_ITS ---
EXAMINATION: NM hepatobiliary wo pharm DATE: 07/02/2023 14:55 INDICATION: Gallbladder distention. COMPARISON: CT abdomen and pelvis 06/28/23 TECHNIQUE: 4.7 mCi Tc-99m mebrofenin (Choletec) was administered intravenously. Scintigraphic images of the abdomen were obtained for one hour. Then, the patient drank 8 oz Ensure, and imaging was cont inued for 60 minutes. FINDINGS: There is normal clearance of radiotracer from the blood pool. There is homogeneous tracer u ptake by the liver. Activity progresses to the bowel and gallbladder. Gallbladder ejection fraction (GBEF) was 45%. Note that with this technique, normal GBEF >= 33%. IMPRESSION: 1. Normal hepatobiliary scintigraphy. Reviewed, dictated and finalized at location E. CIATE BRAND MANAGER
--- NOTE | ~2023-06-17 | MR_ITS ---
EXAMINATION: MR thoracic spine wo/w con DATE: 06/28/2023 18:32 INDICATION: Back pain. TECHNIQUE: Magnetic resonance imaging (MRI) of the thoracic spine was performed without and with 17 m L MultiHance intravenous contrast. COMPARISON: None FINDINGS: There are small pleural effusions, left worse than right. There are airspace opacities in t he lungs with an inferior lung predominance. Cardiomegaly is noted. There is 22 degrees dextroscolios is of thoracic spine. There is kyphosis of thoracic spine. There is mild chronic height loss of T1, T 3, T4 vertebral bodies. There is mildly decreased disc height at multiple levels. There is severely d ecreased disc height at T4-T5, moderately decreased disc height at T5-T6, severely decreased disc hei ght from T6-T7 through T8-T9, and moderately decreased disc height at T10-T11. There is increased T2- weighted signal intensity in the spinal cord and enlargement of the spinal cord from T3 to T12, worst from T7 to T9. There is patchy enhancement in the spinal cord at T8 and T9. There are laminectomies from T7 to T9. At T8-T9, there is a central extrusion with mild central canal stenosis. At the 11-T12 , there is a central extrusion with mild central canal stenosis. At T12-L1, there is a central extrus ion with mild central canal stenosis. There is multilevel facet joint osteoarthritis in thoracic spin e. There is multilevel mild neural foraminal stenosis bilaterally. IMPRESSION: 1. Spinal cord enlargement and increased signal from T3 to T12, worst from T7 to T9 and with contrast enhancement at T8 and T9. Given the history of hematoma status post evacuation two months ago, these findings are consistent with infarct. Areas of enhancement may be subacute infarct, but infection or neoplasm cannot be excluded. 2. Severe thoracic spondylosis. 3. Thoracic kyphosis and dextroscoliosis. 4. Diffuse lung disease, consistent with pulmonary edema versus pneumonia superimposed on chronic int erstitial lung disease. 5. Small pleural effusions, left worse than right. Reviewed, dictated and finalized at location E. IONARY ENGINEER IMPRESSION: 1. Spinal cord enlargement and increased signal from T3 to T12, worst from T7 t o T9 and with contrast enhancement at T8 and T9. Given the history of hematoma status post evacuation two months ago, these findings are consistent with infar ct. Areas of enhancement may be subacute infarct, but infection or neoplasm can not be excluded. 2. Severe thoracic spondylosis. 3. Thoracic kyphosis and dextroscoliosis. 4. Diffuse lung disease, consistent with pulmonary edema versus pneumonia super imposed on chronic interstitial lung disease. 5. Small pleural effusions, left worse than right.
--- NOTE | ~2023-06-17 | CT_ITS ---
EXAMINATION: CT abdomen pelvis w con DATE: 06/28/2023 11:27 INDICATION: Abdominal pain. TECHNIQUE: Computed tomography (CT) of the abdomen and pelvis was performed with 100 mL Omnipaque 350 intravenous contrast. Automated exposure control and iterative reconstruction technique were employe d. The dose-length product was 846.76 mGy-cm. COMPARISON: CT abdomen and pelvis 06/17/2023 FINDINGS: The visualized portions of the lung bases demonstrate widespread airspace opacities and sep akbar thickening and groundglass opacities with architectural distortion. There are small pleural effus ions. Cardiomegaly is noted. There are coronary artery calcifications. There are calcifications of ao rtic valve. No pericardial effusion. There is liver surface nodularity, consistent with cirrhosis. Ca lcifications in the spleen are consistent with old granulomatous disease. There is moderate splenomeg lawson measuring 16.0 cm. The gallbladder is distended. The pancreas and adrenal glands are normal. Ther e is cortical thinning in the kidneys. There are two 3 mm stones in right kidney. There is calcified atherosclerosis of the aorta and many of the other arteries. The bladder is decompressed by a Christy c atheter. There is diverticulosis of the colon without evidence of diverticulitis. The appendix is nor mal. There are no dilated loops of bowel. There are no pathologically enlarged lymph nodes. There is a small volume of ascites. Body wall edema is noted. There is internal fixation of the femora. There is moderate thoracic and lumbar spondylosis. IMPRESSION: 1. 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 2. Small volume of ascites. 3. Diffuse lung disease, likely mild pulmonary edema superimposed on chronic interstitial lung diseas e. 4. Small pleural effusions. 5. Gallbladder distention, which may be secondary to fasting. Correlate with physical exam to exclude acute cholecystitis. Reviewed, dictated and finalized at location A. RETE WORKER IMPRESSION: 1. 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 2. Small volume of ascites. 3. Diffuse lung disease, likely mild pulmonary edema superimposed on chronic in terstitial lung disease. 4. Small pleural effusions. 5. Gallbladder distention, which may be secondary to fasting. Correlate with ph ysical exam to exclude acute cholecystitis.
--- NOTE | 2023-06-17 19:19 | ECG_ITS ---
Measurements Intervals [place] Rate: 86 P: 64 VT: 188 QRS: -21 QRSD: 84 T: -8 QT: 358 QTc: 429 Interpretive Statements SINUS RHYTHM ATRIAL PREMATURE COMPLEXES EARLY PRECORDIAL R/S TRANSITION BORDERLINE T WAVE ABNORMALITY- ANTEROLAT/INF LEADS BORDERLINE ECG COMPARED TO ECG 04/21/2023 16:41:32 PROLONGED QT INTERVAL NO LONGER PRESENT Electronically Signed On 06-18-2023 6:29:23 [employer] by Adalid Ashley D.O.
[2023-06-17] MEDS: SODIUM CHLORIDE 0.9% IV 2,000 ML 999 ML IV CONT (19:49)
[2023-06-17 19:57] LABS: Glucose Point of Care 125 mg/dl (65-105)
[2023-06-17] MEDS: SODIUM CHLORIDE 0.9% IV 1,000 ML 999 ML IV CONT (19:57)
[2023-06-17 20:00] LABS: Basophils Percent Auto 0.1 % (0.2-1.2); Eosinophils Percent Auto 0.1 % (0-4.4); Hematocrit 37.4 % (37.0-47.0); Hemoglobin 12.3 g/dL (12.0-15.0); Immature Granulocyte Absolute 0.11 K/mm3 (0.00-0.031); Immature Granulocyte Percent A 0.6 % (0-0.5); Lymphocytes Percent Auto 10.5 % (18.3-44.2); Mean Corpuscular HGB Conc 32.9 g/dl (32-36); Mean Corpuscular Hemoglobin 31.5 pg (26-34); Mean Corpuscular Volume 95.7 fl (80-100); Mean Platelet Volume 10.4 fl (7.4-10.4); Monocytes Absolute Auto 0.7 K/mm3 (0.1-0.6); Neutrophils Absolute Auto 14.5 K/mm3 (1.3-6.7); Neutrophils Percent Auto 84.7 % (45.5-73.1); Platelet Count Result 186 k/mm3 (150-375); Red Blood Count 3.91 M/mm3 (4.2-5.4); Red Cell Distribution Width 14.6 % (11.5-14.5); White Blood Count 17.1 K/mm3 (4.5-10.0)
[2023-06-17 20:05] LABS: INR 1.2
[2023-06-17 20:06] LABS: Partial Thromboplastin Time 29.5 SECONDS (22.3-36.8)
[2023-06-17 20:07] LABS: Alanine Aminotransferase 22 U/L (6-35); Albumin Level 3.4 g/dL (3.5-5.1); Alkaline Phosphatase 204 U/L (38-126); Anion Gap 9 mmol/L (8-16); Aspartate Amino Transferase 38 U/L (14-36); Bilirubin,Total 1.2 mg/dL (0.2-1.3); Blood Urea Nitrogen 41 mg/dL (7-17); Calcium 9.1 mg/dL (8.4-10.2); Carbon Dioxide 25 mmol/L (22-30); Chloride 98 mmol/L (98-107); Estimated CRCL calculation 22 ml/min; Estimated Glomerular Filt Rate 28; Glucose 120 mg/dL (65-110); Lactic Acid Reflex 3.2 mmol/L (0.7-2.0); Potassium 4.5 mmol/L (3.4-5.0); Sodium 132 mmol/L (137-145)
[2023-06-17 20:13] LABS: Bacteria Urine 4+ /hpf; Need Manual Microscopic Reviewed; Non Pathogenic Casts >20; RBC Urine >100 /hpf (0-2); Squamous Epithelial Cell Urine Occasional /hpf (Few); WBC Urine >100 /hpf
[2023-06-17 20:17] LABS: Troponin I 0.012 ng/mL (0.000-0.034)
--- NOTE | 2023-06-17 20:18 | ED.GENADULT ---
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 The patient herself is A&O x3 but cannot give much history other than she feels weak and her stomach hurts. Per the family throughout the day she has been drowsy than more lethargic than usual. Her Ritchie has not drained anything since 5:30 a.m. this morning. Per the family in general the patient has not been doing well since coming home from care home. patient denies fever chills chest pain difficulty breathing nausea vomiting. patient's family notes she has had 4 bowel movements today. Related Data Home Medications Medication Instructions Recorded Confirmed ascorbic acid (vitamin C) 1,000 mg 1 gm PO DAILY 05/05/20 05/09/23 tablet calcium carbonate 600 mg calcium 600 mg PO DAILY 05/05/20 05/09/23 (1,500 mg) tablet (Calcium) biotin 5,000 mcg disintegrating 10,000 mcg PO DAILY 02/16/21 05/09/23 tablet cetirizine 10 mg capsule (Zyrtec) 10 mg PO DAILY PRN Allergic 02/16/21 05/09/23 Symptoms warfarin 5 mg tablet 5 mg PO QTUTHSASU 03/25/23 05/09/23 warfarin 7.5 mg tablet 7.5 mg PO 2XW 03/25/23 05/09/23 Allergies Allergy/AdvReac Type Severity Reaction Status Date / Time No Known Allergies Allergy Verified 04/20/23 19:37 [facility] Past Medical History Medical History Aortic stenosis Moderate Atypical pneumonia CHF (congestive heart failure) Echocardiogram 10/2021: Normal left ventricular systolic function with EF of 65-70%, mild concentric left ventricular hypertrophy, impaired diastolic relaxation grade 1, moderate left atrial enlargement, [id number] mitral valve regurgitation, moderate aortic stenosis with peak gradient 26 mean gradient 14 and valve area 1.14 with mildly calcified valve cusps trace aortic valve regurgitation, mild tricuspid and pulmonic valve regurgitation Chronic kidney disease, stage 3 (moderate) COVID-19 Esophageal varices Essential (primary) hypertension Fatty liver Hepatic cirrhosis Hx of renal calculi ILD (interstitial lung disease) snf current use of anticoagulant therapy Mixed hyperlipidemia Osteopenia Paroxysmal A-fib Secondary renal hyperparathyroidism Vitamin D deficiency Surgical History Surgical History History of hip surgery Lt History of hip surgery Rt History of hysterectomy History of repair of right rotator cuff (~2002) History of total left knee replacement (~05/13/18) Status post cataract extraction of both eyes with insertion of intraocular lens Family History Family History Daughter Leukemia Social History Social History Social History: She is . Prior to her hospitalization in the middle March 2023 she lived in her own home. Her youngest son lives with her. Since her recent hospitalization she was in acute rehab and then discharged to her oldest son's home where she is living with him and his . She ambulates with a walker. Code status: Full code Healthcare power of civil attorney: Sesar (oldest son) Smoking status: Never smoker Second hand tobacco smoke exposure: Yes Alcohol intake: former Substance use: never Substance use type: does not use Lack of Transportation: No Lack of Food: Never True Current Housing: I Have Housing Concerned About Future Housing: No Difficulty Paying Gas/Electric Bills: No Difficulty Paying for Meds: No Currently Unemployed: No Education: High School Diploma/GED Difficulty w/ Childcare or Family Care: No Living arrangements: with family Gender
[2023-06-17 20:22] LABS: Appearance Urine Cloudy (Clear); Bilirubin Urine Negative (Negative); Blood Urine 3+ (Negative); Color Urine Yellow (Yellow); Glucose Urine UA Negative (Negative); Ketones Urine Negative (Negative); Leukocyte Esterase Ur 3+ LEU/UL (Negative); Nitrate Urine Positive (Negative); Protein Urine 3+ mg/dL (Negative); Specific Grav Ur 1.015 (1.001-1.035); Urobilinogen Urine 0.2 mg/dL (<2.0); pH Urine 8.5 (5.0-9.0)
[2023-06-17 20:27] LABS: Lipase 174 U/L (23-300); Magnesium 1.9 mg/dL (1.6-2.3)
[2023-06-17 20:29] LABS: Add Urine Microscopic? YES
[2023-06-17] MEDS: PIPERACILLN/TAZ 3.375GM/NS50ML 3.375 GM/50 ML BAG IVPB (20:33)
[2023-06-17 20:41] LABS: Influenza A QL RT-PCR Negative (Negative); Influenza B QL RT-PCR Negative (Negative); RSV RNA, RT-PCR Negative (Negative); SARS-CoV-2 RNA PCR Negative (Negative)
[2023-06-17] MEDS: SODIUM CHLORIDE 0.9% IV 1,000 ML 125 ML IV CONT (21:45)
--- NOTE | 2023-06-17 22:04 | PM.IMHP ---
H&P: HPI History of Present Illness Date/Time: 06/17/23 22:04 Chief Complaint: ALTERED MENTAL STATUS Narrative: This is an 88-year-old female with past medical history significant for paraplegia, aortic stenosis, congestive heart failure, chronic kidney disease, esophageal varices, hypertension, fatty liver, hepatic cirrhosis, interstitial lung disease, paroxysmal atrial fibrillation, on anticoagulation. Patient comes to the emergency room after she was lethargic all day and poor per orally intake. Most of the history has been obtained from family member who is at bedside. In emergency room patient was found to have urinary retention of over 1000 cc urine was positive for urinary tract infection patient was also hypotensive was rest today sedated with fluids and central line was placed. EXAMINATION:? XR chest 1V portable Exam Date/Time:? 06/17/2023 20:00 BILL ADJUSTER HISTORY: RUQ pain; CHF, HTN, A fib ? Comparison:? 12/02/2020. RESULT: Lines, tubes, and devices:? None. Lungs and pleura:? Moderate diffuse reticular opacities, similar to the prior study. No focal consolidation. Cardiomediastinal silhouette:? Stable. Other:? No acute osseous or upper abdominal finding. ? IMPRESSION: Stable chronic interstitial lung disease. EXAMINATION: CT abdomen pelvis w con DATE: 06/17/2023 21:08 INDICATION: RUQ Pain and urinary retention TECHNIQUE: Computed tomography (CT) of the abdomen and pelvis was performed with 100 mL Omnipaque-350 intravenous contrast. Automated exposure control and iterative reconstruction technique were employed. The dose-length product was 1008.47 mGy-cm. COMPARISON: 06/29/2022. FINDINGS: Lower thorax: Heavy coronary artery calcification. Mitral annulus calcification. Moderate chronic appearing interstitial changes in the lung bases. Liver: Enlarged. Nodular liver border.? Biliary/Gallbladder: Trace pericholecystic fluid, otherwise normal. No bile duct dilation. Pancreas: No mass or duct dilation. Spleen: Enlarged. Granulomatous calcifications. Adrenals:No mass. Kidneys: Left renal atrophy. Bilateral cortical thinning. Punctate nonobstructing bilateral calculi. Bilateral pelviectasis, mild ureterectasis, and hyperemia of the urothelium GI tract: Small hiatal hernia. Moderate distal esophageal and gastric wall edema. Mild dilation of the rectum up to 5.5 cm, by formed stool, with mild adjacent wall inflammation. No small bowel dilation. Normal appendix. Diverticulosis without diverticulitis. Mesentery/Peritoneum: Mild ascites. No mass or free air. Retroperitoneum: No mass. Atherosclerotic abdominal aortic and/or arterial calcifications. Pelvis: Partial obscuration by metal artifact. Surgically absent uterus. The bladder is partially decompressed by Christy catheter. Bladder wall edema. Soft Tissues: Mild body wall edema. Bones:? No acute osseous finding. Uncomplicated appearing, incompletely visualized bilateral femoral fixation hardware. IMPRESSION: Chronic interstitial lung disease. Moderate esophagitis/gastritis. Hepatosplenomegaly and cirrhosis. Mild ascites. Mild pericholecystic fluid, and nonspecific finding in the setting of chronic liver disease. Moderate cystitis, with findings suggestive of bilateral ascending infection. Mild fecal impaction, with adjacent mild bowel wall inflammatory change. Early stercoral colitis is not excluded. EXAMINATION:? XR chest PICC line Exam Date/Time:? 06/17/2023 21:37 BILL ADJUSTER HISTORY: S/P R IJ CL ? Comparison:? Same date at 8:05 PM. RESULT: Lines, tubes, and devices:? New right IJ central line terminating at the cavoatrial junction. Lungs and pleura:? Stable moderate diffuse interstitial opacities. Cardiomediastinal silhouette:? Stable. Other:? No acute osseous or upper abdominal finding. ? IMPRESSION: Right IJ central line, in good position. Review of Systems Review of Systems: LETHARGY Constitutional: Constitutional: Denies chills, Denies fev
--- NOTE | 2023-06-17 22:35 | PC.NURSE ---
Per EDP Dr. Blount central line good to use
[2023-06-17 22:48] LABS: Troponin I < 0.012 ng/mL (0.000-0.034)
[2023-06-17 22:53] LABS: Reflex Lactic Acid Yes or No Add Lactic
[2023-06-17 22:59] LABS: MRSA (PCR) NOT DETECTED (NOT DETECTE)
[2023-06-18] VITALS (36 sets, daily range): BP systolic 83–157; BP diastolic 36–97; PULSE 60–79; RESP 16–25; TEMP 36.3–37.7; O2SAT 96–100; BMI 28.0
--- NOTE | 2023-06-18 | PC.NURSE ---
Patient's pressure down to 84/45. Notified EDP Dr. Blount
[2023-06-18] MEDS: NOREPINEPHRINE 8 MG/D5W 250 ML 8 MG/250 ML BAG 9.38 MG IV CONT (00:07)
--- NOTE | 2023-06-18 02:30 | ADMGEN ---
This patient, Terrie Humphries, was admitted to Intensive Care Unit-1. Patient/family oriented to hospital policies and general routines including ID bracelet, bed and alarms, visiting hours, pain management, procedures, bathroom and other care routines, personal items, smoking policy, room service/diet, and visiting hours. Information on how to activate the Rapid Response Team has been discussed. Patient/Family are encouraged to report perceived risks to care and to ask questions if they do not understand what they are told or what they should do.
[2023-06-18] MEDS: PIPERACILLIN/TAZ 2.25G/NS 50ML 2.25 GM/50 ML BAG IVPB ×3 (05:30→17:32)
[2023-06-18 06:40] LABS: Hematocrit 30.5 % (37.0-47.0); Hemoglobin 9.8 g/dL (12.0-15.0); Mean Corpuscular HGB Conc 32.1 g/dl (32-36); Mean Corpuscular Hemoglobin 31.2 pg (26-34); Mean Corpuscular Volume 97.1 fl (80-100); Mean Platelet Volume 9.5 fl (7.4-10.4); Platelet Count Result 153 k/mm3 (150-375); Red Blood Count 3.14 M/mm3 (4.2-5.4); Red Cell Distribution Width 14.9 % (11.5-14.5); White Blood Count 17.2 K/mm3 (4.5-10.0)
[2023-06-18 06:54] LABS: Anion Gap 7 mmol/L (8-16); Blood Urea Nitrogen 34 mg/dL (7-17); Carbon Dioxide 21 mmol/L (22-30); Chloride 106 mmol/L (98-107); Estimated CRCL calculation 32 ml/min; Estimated Glomerular Filt Rate 39; Glucose 110 mg/dL (65-110); Magnesium 1.7 mg/dL (1.6-2.3); Phosphorus 3.9 mg/dL (2.5-4.5); Potassium 3.5 mmol/L (3.4-5.0); Sodium 134 mmol/L (137-145)
[2023-06-18] MEDS: MAGNESIUM SULF 2 GM/WATER 50ML 2 GM/50 ML BAG IVPB (08:42)
[2023-06-18] MEDS: ALBUMIN HUMAN 25% 25 GM/100 ML 100 ML IVPB ×3 (08:43→16:59)
[2023-06-18] MEDS: POTASSIUM CHLORIDE 20 MEQ PACKET (FOR LIQUID) 40 MEQ PO (08:43)
[2023-06-18 08:56] LABS: Lactic Acid Reflex 1.6 mmol/L (0.7-2.0)
--- NOTE | 2023-06-18 09:20 | WPDCNINT ---
Assessment and Plan Assessment and plan (1) Septic shock: Code(s): A41.9 - Sepsis, unspecified organism; R65.21 - Severe sepsis with septic shock Status: Acute Assessment and Plan: 06/17: patient presented to the ED with lethargy, hypotension, malfunction of Christy catheter - received 3 L IV fluids in the ER despite which her blood pressures were low, central line was placed in the right IJ stent. Started on Levophed - continue continue Levophed maintain MAP > 65 mmHg at all times adequate end organ perfusion - lactic acid has normalized - new Christy catheter was inserted in the ER with 1000 mL in urine drainage - creatinine trending down - likely source of infection is urine is and left easily ulcer which is foul smelling - continue Zosyn and vancomycin (06/17) - 06/17: blood cultures obtained and pending - 06/17: Urine cultures obtained and pending (2) Acute UTI: Code(s): N39.0 - Urinary tract infection, site not specified Status: Acute Assessment and Plan: acute urinary tract infection likely related to Christy malfunction and urinary retention - await urine cultures, continue antibiotics as above (3) Decubitus ulcer, heel, left, unstageable: Code(s): L89.620 - Pressure ulcer of left heel, unstageable Status: Acute Assessment and Plan: left decubitus heels ulcer with eschar and foul smell - wound care has been following and recommended surgical evaluation for debridement - will consult surgery (4) Chronic paraplegia: Code(s): G82.20 - Paraplegia, unspecified Status: Acute Assessment and Plan: 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 (5) Paroxysmal A-fib: Code(s): I48.0 - Paroxysmal atrial fibrillation Status: Acute Assessment and Plan: currently in sinus rhythm, continue to monitor (6) DIA (acute kidney injury): Code(s): N17.9 - Acute kidney failure, unspecified Status: Acute Assessment and Plan: acute kidney injury likely related to UTI, hypotension, infection, ATN - received adequate IV fluids - albumin for volume expansion - lactic acid has resolved, creatinine improving - continue monitor renal function, electrolytes and urine output Plan DVT prophylaxis: Lovenox Stress ulcer prophylaxis: not recommended Nutrition: heart healthy diet Code Status: do not resuscitate / do not intubate okay with central line and vasopressors Critical Care Time Spent: 49 minutes Due to a high probability of clinically significant, life threatening deterioration, the patient required my highest level of preparedness to intervene emergently and I personally spent this critical care time directly and personally managing the patient. This critical care time included obtaining a history; examining the patient; pulse oximetry; ordering and review of studies; arranging urgent treatment with development of a management plan; evaluation of patient's response to treatment; frequent reassessment; and discussions with other providers. It was exclusive of separately billable procedures and treating other patients and teaching time. Please see Assessment and Plan section and the rest of the note for further information on patient assessment and treatment This dictation may have been done utilizing a voice recognition system. Attempts have been made to correct errors. However, there may be uncorrected grammatical, spelling, and recognitions errors present. 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
[2023-06-18] MEDS: ENOXAPARIN 40 MG/0.4 ML SYRINGE SUB-Q (11:07)
--- NOTE | 2023-06-18 11:59 | PM.CNGS ---
Assessment and Plan Assessment and plan (1) Decubitus ulcer, heel, left, unstageable: Code(s): L89.620 - Pressure ulcer of left heel, unstageable Status: Acute Assessment and Plan: The patient has an unstageable necrotic left heel ulcer with a foul odor and soft eschar over the wound. I will order x-rays of the left foot to evaluate for any signs of osteomyelitis. Continue IV antibiotics. She already has heel waffle boots ordered to reduce pressure from this area. Will discuss the need for possible surgical debridement of the left foot ulcer with Dr. Ramirez. Further plan to follow. (2) Septic shock: Code(s): A41.9 - Sepsis, unspecified organism; R65.21 - Severe sepsis with septic shock Status: Acute Assessment and Plan: Source felt more likely to be urinary, but also consideration of the necrotic left foot ulcer. Continue broad-spectrum IV antibiotics and ICU/medical management. Will discuss need for surgical debridement with Dr. Ramirez. Blood cultures pending. (3) Acute UTI: Code(s): N39.0 - Urinary tract infection, site not specified Status: Acute Assessment and Plan: Urinary retention due to issues with her indwelling urinary catheter, which has been exchanged and is functioning well now. UA showed UTI, urine cultures pending. Continue IV antibiotics per primary service. (4) Chronic paraplegia: Code(s): G82.20 - Paraplegia, unspecified Status: Acute Assessment and Plan: Secondary to an intradural hematoma that was evacuated on 04/22/23 at [facility]. 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 Patient believes her last dose was two days ago. (6) Paroxysmal A-fib: Code(s): I48.0 - Paroxysmal atrial fibrillation Status: Acute (7) Aortic stenosis: Code(s): I35.0 - Nonrheumatic aortic (valve) stenosis Status: Acute (8) Hepatic cirrhosis: Code(s): K74.60 - Unspecified cirrhosis of liver Status: Acute (9) CHF (congestive heart failure): Code(s): I50.9 - Heart failure, unspecified Status: Acute History of Present Illness Consult details Consult date: 06/18/23 Reason for consult: other (Infected left heel ulcer) Requesting physician: Leobardo Hernandez MD Narrative: This is an 88-year-old woman who we have been asked to see in surgical consultation for an infected left heel ulcer. She has a history of paroxysmal atrial fibrillation and was previously on Coumadin. She had a hospitalization in April 2023 where she was found to have a supratherapeutic INR and had acute development of paraplegia of the lower extremities prompting transfer to [facility] where she was found to have an intradural hematoma that was evacuated on 04/22/2023. She has not regained any sensation or movement in her lower extremities and was eventually discharged to [facility]. There, she reportedly developed the left heel ulcer. She was brought into the ER yesterday for evaluation of lethargy and no output from her indwelling urinary catheter. She had her catheter replaced with a L of urine output following insertion. [place] [id number], BUN 41, creatinine 1.7, lactic acid 3.2. Urinalysis suggests UTI. CT scan of the abdomen and pelvis showed chronic interstitial lung disease, moderate cystitis with findings suggestive of bilateral ascending infection, mild fecal impaction, mild pericholecystic fluid that is nonspecific in the setting cirrhosis and chronic liver disease, hepatosplenomegaly, moderate esophagitis/gastritis. She was hypotensive in the ER despite IV fluid resuscitation and ultimately required central line placement and was started on vasopressors. She was then transferred to the ICU. On evaluation, she was
[2023-06-18] MEDS: ALBUTEROL SULFATE NEB 2.5 MG/3 ML INH INHALATION ×2 (13:10→19:43)
[2023-06-18] MEDS: IPRATROPIUM BR 0.02% INH SOLN 0.5 MG/2.5 ML VIAL INHALATION ×2 (13:10→19:43)
--- NOTE | 2023-06-18 14:38 | P.OP_ITS ---
Procedure Note - Detailed Date of Procedure 06/18/23 Pre-op Diagnosis Necrotic left heel ulcer Post-op Diagnosis Same Procedure Performed Sharp excisional debridement of necrotic left heel ulcer of skin and subcutaneous tissue, measuring 4 cm x 4 cm x 1 cm Surgeon ABAD Miller Technology Intern alfred Gotti RN Anesthesia None Indications This is an 88-year-old woman who presented with sepsis, UTI, and a necrotic left heel ulcer. She had an intradural hematoma that was evacuated in April of 2023, and has since been paraplegic with no lower extremity sensation. X-rays of the left foot are negative for osteomyelitis. Decision was made to proceed with excisional debridement at the bedside today. Findings Necrotic left heel ulcer extending to subcutaneous tissue. No abscess or involvement of deeper tissues. Description of Procedure The patient was placed in the right lateral position in the ICU bed so that her posterior heel would be exposed. Patient and location of wound verified. Following this, sterile prep was carried out over the wound with iodine swabs. The area was draped using sterile technique. I used a #15 blade scalpel to begin debriding the soft eschar circumferentially at the edges of the wound. Debridement was carried down to healthy subcutaneous tissue. There was no purulent drainage or abscess beneath the eschar. The wound was inspected and there was no further necrotic tissue in the wound bed. I did not encounter any bleeding. The wound measured 4 cm x 4 cm x 1 cm. Silver gel and a sterile gauze dressing was applied. She tolerated the procedure well. Estimated Blood Loss 0 Drains No Packing No Pathology None sent Complications No immediate complications Condition Stable Disposition No change [facility] Billing Surgery - Charge Forward: Surgery Billing
[2023-06-19] VITALS (38 sets, daily range): BP systolic 89–163; BP diastolic 39–97; PULSE 64–132; RESP 15–27; TEMP 36.4–38.2; O2SAT 94–100
[2023-06-19] MEDS: ALBUMIN HUMAN 25% 25 GM/100 ML 100 ML IVPB ×4 (00:20→17:55)
[2023-06-19] MEDS: ACETAMINOPHEN 500 MG TABLET 1000 MG PO (00:21)
[2023-06-19] MEDS: PIPERACILLIN/TAZ 2.25G/NS 50ML 2.25 GM/50 ML BAG IVPB ×5 (01:20→23:36)
--- NOTE | 2023-06-19 01:24 | ECG_ITS ---
Measurements Intervals [place] Rate: 127 P: [place]: 0 QRS: -13 QRSD: 85 T: 9 QT: 329 QTc: 479 Interpretive Statements ATRIAL FIBRILLATION WITH RAPID VENTRICULAR RESPONSE EARLY PRECORDIAL R/S TRANSITION BORDERLINE ST ABNORMALITY- ANTEROLAT/HIGH LAT LEADS ABNORMAL ECG COMPARED TO ECG 06/17/2023 19:36:08 ATRIAL FIBRILLATION NOW PRESENT Electronically Signed On 06-19-2023 6:53:42 ELECTROPLATER APPRENTICE by Adalid Ashley D.O.
[2023-06-19] MEDS: DIGOXIN INJ 250 MCG/ML 2 ML AMP (*BKC) 125 MCG IV PUSH (01:40)
[2023-06-19] MEDS: IPRATROPIUM BR 0.02% INH SOLN 0.5 MG/2.5 ML VIAL INHALATION ×4 (02:00→19:58)
[2023-06-19] MEDS: ALBUTEROL SULFATE NEB 2.5 MG/3 ML INH INHALATION ×4 (02:01→19:57)
[2023-06-19] MEDS: METOPROLOL TARTRATE INJ 5 MG/5 ML VIAL IV PUSH (04:21)
[2023-06-19] MEDS: oxyCODONE/ACETAMINOPHEN (*CRX) 5-325 MG TABLET 1 TABLET PO ×2 (04:23→23:44)
[2023-06-19 05:44] LABS: Basophils Percent Auto 0.6 % (0.2-1.2); Eosinophils Absolute Auto 0.1 K/mm3 (0-0.3); Eosinophils Percent Auto 1.7 % (0-4.4); Hematocrit 24.8 % (37.0-47.0); Hemoglobin 7.9 g/dL (12.0-15.0); Immature Granulocyte Absolute 0.02 K/mm3 (0.00-0.031); Immature Granulocyte Percent A 0.4 % (0-0.5); Immature Platelet Fraction Pct 2.2 % (0.9-11.2); Lymphocytes Absolute Auto 1.16 K/mm3 (0.9-3.2); Mean Corpuscular HGB Conc 31.9 g/dl (32-36); Mean Corpuscular Hemoglobin 31.7 pg (26-34); Mean Corpuscular Volume 99.6 fl (80-100); Monocytes Absolute Auto 0.3 K/mm3 (0.1-0.6); Monocytes Percent Auto 6.4 % (2.6-8.5); Neutrophils Absolute Auto 3.2 K/mm3 (1.3-6.7); Neutrophils Percent Auto 66.9 % (45.5-73.1); Platelet Count Result 79 k/mm3 (150-375); Red Blood Count 2.49 M/mm3 (4.2-5.4); Red Cell Distribution Width 14.9 % (11.5-14.5); White Blood Count 4.8 K/mm3 (4.5-10.0)
[2023-06-19 05:52] LABS: Lactic Acid Reflex 2.7 mmol/L (0.7-2.0)
[2023-06-19 05:53] LABS: Alanine Aminotransferase 15 U/L (6-35); Albumin Level 3.5 g/dL (3.5-5.1); Alkaline Phosphatase 115 U/L (38-126); Anion Gap 10 mmol/L (8-16); Aspartate Amino Transferase 22 U/L (14-36); Bilirubin,Total 1.2 mg/dL (0.2-1.3); Blood Urea Nitrogen 29 mg/dL (7-17); Calcium 8.8 mg/dL (8.4-10.2); Carbon Dioxide 21 mmol/L (22-30); Chloride 109 mmol/L (98-107); Estimated CRCL calculation 37 ml/min; Estimated Glomerular Filt Rate 47; Glucose 103 mg/dL (65-110); Lipase 108 U/L (23-300); Magnesium 2.3 mg/dL (1.6-2.3); Phosphorus 3.6 mg/dL (2.5-4.5); Potassium 3.7 mmol/L (3.4-5.0); Sodium 140 mmol/L (137-145)
[2023-06-19] MEDS: GABAPENTIN 300 MG CAPSULE PO ×2 (08:00→16:48)
[2023-06-19] MEDS: APIXABAN 5 MG TABLET PO ×2 (08:00→20:37)
[2023-06-19] MEDS: ASCORBIC ACID 500 MG TABLET PO (08:01)
[2023-06-19] MEDS: SODIUM CHLORIDE 0.9% IV 1,000 ML 30 ML IV CONT (08:04)
[2023-06-19 08:05] LABS: Burr Cells 2+ (NORMAL); Platelet Estimate Decreased (Adequate); Schistocytes None Seen (NORMAL)
[2023-06-19 08:40] LABS: Reflex Lactic Acid Yes or No Add Lactic
[2023-06-19] MEDS: SENNOSIDES 8.6 MG TABLET PO (09:08)
[2023-06-19 09:46] LABS: Lactic Acid 4.6 mmol/L (0.7-2.0)
--- NOTE | 2023-06-19 09:49 | WPDINTPN ---
Progress Note: A&P Assessment and Plan (1) Septic shock: Code(s): A41.9 - Sepsis, unspecified organism; R65.21 - Severe sepsis with septic shock Status: Acute Assessment and Plan: 06/17: patient presented to the ED with lethargy, hypotension, malfunction of Christy catheter - received 3 L IV fluids in the ER despite which her blood pressures were low, central line was placed in the right IJ stent. Started on Levophed -off Levophed, continue to maintain MAP > 65 mmHg at all times adequate end organ perfusion - lactic acid has normalized - new Christy catheter was inserted in the ER with 1000 mL in urine drainage - creatinine trending down - likely source of infection is urine is and left easily ulcer which is foul smelling - continue Zosyn and vancomycin (06/17) - 06/17: blood cultures o Gram-negative bacilli - 06/17: Urine cultures obtained and pending 06/19: Lactic acid increased this morning, will give additional IV fluid bolus and continue to monitor lactic acid. May need CT scan of the abdomen and pelvis since she has a history of AFib (2) Acute UTI: Code(s): N39.0 - Urinary tract infection, site not specified Status: Acute Assessment and Plan: acute urinary tract infection likely related to Christy malfunction and urinary retention - await urine cultures, continue antibiotics as above (3) Decubitus ulcer, heel, left, unstageable: Code(s): L89.620 - Pressure ulcer of left heel, unstageable Status: Acute Assessment and Plan: left decubitus heels ulcer with eschar and foul smell - wound care has been following -06/18: Debridement of left heel ulcer done by surgery -continue antibiotics as above (4) Chronic paraplegia: Code(s): G82.20 - Paraplegia, unspecified Status: Acute Assessment and Plan: 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 (5) Paroxysmal A-fib: Code(s): I48.0 - Paroxysmal atrial fibrillation Status: Acute Assessment and Plan: currently in sinus rhythm, continue to monitor -started on home metoprolol and home apixaban (6) DIA (acute kidney injury): Code(s): N17.9 - Acute kidney failure, unspecified Status: Acute Assessment and Plan: acute kidney injury likely related to UTI, hypotension, infection, ATN - received adequate IV fluids - albumin for volume expansion - lactic acid increase this morning, will give 1 L IV fluid bolus continue to monitor lactic acid level - continue monitor renal function, electrolytes and urine output Plan DVT prophylaxis: Apixaban Stress ulcer prophylaxis: not recommended Nutrition: heart healthy diet Code Status: do not resuscitate / do not intubate okay with central line and vasopressors Critical Care Time Spent: 35 minutes Due to a high probability of clinically significant, life threatening deterioration, the patient required my highest level of preparedness to intervene emergently and I personally spent this critical care time directly and personally managing the patient. This critical care time included obtaining a history; examining the patient; pulse oximetry; ordering and review of studies; arranging urgent treatment with development of a management plan; evaluation of patient's response to treatment; frequent reassessment; and discussions with other providers. It was exclusive of separately billable procedures and treating other patients and teaching time. Please see Assessment and Plan section and the rest of the note for further information on patient assessment and treatment This dictation may have been done utilizing a voice recognition system. Attempts have been made to correct errors. However, there may be uncorrected grammatical, spelling, and recognitions errors present. Subjective Date/time seen: 06/19/23 09:49 Interval history: Reason for consult: Septic shock, UTI,? press
[2023-06-19] MEDS: SODIUM CHLORIDE 0.9% IV 1,000 ML 999 ML IV CONT (10:03)
[2023-06-19] MEDS: LIDOCAINE 5% PATCH 1 PATCH TRANSDERM (10:13)
[2023-06-19] MEDS: NOREPINEPHRINE 8 MG/D5W 250 ML 8 MG/250 ML BAG 9.38 MG IV CONT (10:20)
[2023-06-19 10:34] LABS: Basophils Percent Auto 0.4 % (0.2-1.2); Eosinophils Absolute Auto 0.1 K/mm3 (0-0.3); Eosinophils Percent Auto 2.2 % (0-4.4); Hematocrit 24.3 % (37.0-47.0); Hemoglobin 7.5 g/dL (12.0-15.0); Immature Granulocyte Absolute 0.02 K/mm3 (0.00-0.031); Immature Granulocyte Percent A 0.4 % (0-0.5); Immature Platelet Fraction Pct 2.3 % (0.9-11.2); Lymphocytes Absolute Auto 0.77 K/mm3 (0.9-3.2); Mean Corpuscular HGB Conc 30.9 g/dl (32-36); Mean Corpuscular Hemoglobin 31.4 pg (26-34); Mean Corpuscular Volume 101.7 fl (80-100); Mean Platelet Volume 10.1 fl (7.4-10.4); Monocytes Absolute Auto 0.3 K/mm3 (0.1-0.6); Monocytes Percent Auto 6.2 % (2.6-8.5); Neutrophils Absolute Auto 3.4 K/mm3 (1.3-6.7); Neutrophils Percent Auto 73.8 % (45.5-73.1); Platelet Count Result 79 k/mm3 (150-375); Red Blood Count 2.39 M/mm3 (4.2-5.4); Red Cell Distribution Width 14.8 % (11.5-14.5); White Blood Count 4.5 K/mm3 (4.5-10.0)
--- NOTE | 2023-06-19 11:05 | PCFNICU ---
ICU Rounding Note: Pt current nutrition is Heart Healthy. Last recorded weight is 83.6 kg. Bowel Motility: +Bm reported 06/18 Labs Reviewed:Cr 1.10,GFR 47, BUN 29 Meds Noted:Lovenox, Zosyn, Vancomycin, Levophed, Senokot Skin: right heel-Deep Tissue left heel-unstageable buttock-stage III PU Additional Notes: Patient is tolerating a heart healthy diet. Intake about 50% of meals. Drinking diet supplements of Ensure compact BID and Felix BID for increase protein needs due to would healing. Agree with diet orders. Following daily in ICU rounds. RD will monitor weight, skin, labs, meds, oral intake every 5 days.
[2023-06-19 13:30] LABS: Lactic Acid Reflex 2.6 mmol/L (0.7-2.0)
[2023-06-19] MEDS: MORPHINE SULFATE (*CRX) 2 MG/ML INJ 1 MG IV PUSH (14:08)
--- NOTE | 2023-06-19 15:02 | PM.PNGS ---
Progress Note: A&P Assessment and Plan (1) Decubitus ulcer, heel, left, unstageable: Code(s): L89.620 - Pressure ulcer of left heel, unstageable Status: Acute Assessment and Plan: S/p bedside excisional debridement of left heel ulcer on 06/18. The heel ulcer appears stable today, no necrotic tissue or purulent drainage. Continue local wound care with silver gel dressing changes daily. Continue waffle boots to elevate heels. (2) Septic shock: Code(s): A41.9 - Sepsis, unspecified organism; R65.21 - Severe sepsis with septic shock Status: Acute (3) Chronic paraplegia: Code(s): G82.20 - Paraplegia, unspecified Status: Acute Subjective Subjective Date/Time Seen: 06/19/23 15:02 Post Op day: 1 (excisional debridement of necrotic left heel ulcer) Patient reports: no new complaints and fever (100.8F at midnight last night) Interval history: Patient seen in ICU today with no family at the bedside. Per nursing, her levophed was weaned off and had to be restarted at a low rate today. Patient complains of pain across her lower rib cage and back pain, which is reportedly chronic for her. No other complaints at this time. Lactic acid went up to 4.6 and she was given an IV Fluid bolus. Repeat lactic was down to 2.6. Exam Narrative: Left heel dressing removed and the heel ulcer with a slight dusky appearance of some subcutaneous tissue, but no necrotic tissue, no foul odor, and no purulent drainage. Const: General: comfortable and no acute distress Orientation/consciousness: oriented to person and oriented to place Objective Data Vital Signs Vital Signs: Vital Signs - 24 hr 06/18/23 16:00 06/18/23 16:00 06/18/23 16:00 Temperature 99 F Pulse Rate 70 70 70 Respiratory Rate 20 20 Blood Pressure 106/55 L Pulse Oximetry 96 96 Oxygen Delivery Room Air 06/18/23 18:00 06/18/23 18:00 06/18/23 16:30 Temperature Pulse Rate 68 68 65 Respiratory Rate 16 Blood Pressure 107/57 L 95/52 L Pulse Oximetry 100 Oxygen Delivery 06/18/23 17:00 06/18/23 18:00 06/18/23 19:44 Temperature Pulse Rate 67 67 69 Respiratory Rate 18 Blood Pressure 126/70 107/57 L Pulse Oximetry Oxygen Delivery 06/18/23 19:44 06/18/23 19:57 06/18/23 20:00 Temperature Pulse Rate 69 71 79 Respiratory Rate 22 H Blood Pressure Pulse Oximetry 99 Oxygen Delivery Room Air 06/18/23 20:00 06/18/23 20:00 06/18/23 20:00 Temperature 98.1 F Pulse Rate 79 79 76 Respiratory Rate 22 H 18 Blood Pressure 106/54 L Pulse Oximetry 99 100 Oxygen Delivery Room Air 06/18/23 22:00 06/18/23 22:00 06/19/23 00:00 Temperature 100.8 F H Pulse Rate 79 79 77 Respiratory Rate 18 27 H Blood Pressure 107/61 135/61 Pulse Oximetry 100 94 Oxygen Delivery 06/18/23 18:00 06/19/23 00:00 06/19/23 01:21 Temperature 98.7 F Pulse Rate 67 102 H Respiratory Rate Blood Pressure 99/50 L 135/61 Pulse Oximetry Oxygen Delivery 06/19/23 02:01 06/19/23 02:09 06/19/23 02:00 Temperature Pulse Rate 112 H 118 H 114 H Respiratory Rate 19 20 19 Blood Pressure 110/83 Pulse Oximetry 100 Oxygen Delivery 06/19/23 00:00 06/19/23 00:00 06/19/23 02:00 Temperature Pulse Rate 125 H 125 H 109 H Respiratory Rate 20 Blood Pressure Pulse Oximetry 100 Oxygen Delivery Room Air 06/19/23 02:00 06/19/23 04:21 06/19/23 01:40 Temperature Pulse Rate 125 H 123 H 132 H Respiratory Rate Blood Pressure 106/51 L Pulse Oximetry Oxygen Delivery 06/19/23 04:00 06/19/23 04:00 06/19/23 04:00 Temperature 98.4 F Pulse Rate 123 H 123 H 118 H Respiratory Rate 16 16 Blood Pressure 107/59 L Pulse Oximetry 99 98 Oxygen Delivery Room Air 06/19/23 04:00 06/19/23 06:00 06/19/23 06:00 Temperature 98.9 F Pulse Rate 93 97 93 Respiratory Rate 16 18 Blood Pressure 115/65 106/66 Pulse Oximetry 99 98 Oxygen Delivery
[2023-06-19] MEDS: METOPROLOL TARTRATE 25 MG TABLET PO (23:33)
[2023-06-20] VITALS (18 sets, daily range): BP systolic 88–122; BP diastolic 45–71; PULSE 68–91; RESP 17–24; TEMP 36.7–37.9; O2SAT 92–100
[2023-06-20] MEDS: ALBUTEROL SULFATE NEB 2.5 MG/3 ML INH INHALATION ×4 (01:25→20:40)
[2023-06-20] MEDS: IPRATROPIUM BR 0.02% INH SOLN 0.5 MG/2.5 ML VIAL INHALATION ×4 (01:25→20:40)
[2023-06-20] MEDS: PIPERACILLIN/TAZ 2.25G/NS 50ML 2.25 GM/50 ML BAG IVPB (05:58)
[2023-06-20] MEDS: METOPROLOL TARTRATE 25 MG TABLET PO ×2 (05:58→12:00)
[2023-06-20] MEDS: CENTRAL LINE FLUSH 10 ML IV PUSH ×3 (06:02→20:29)
[2023-06-20 06:18] LABS: Basophils Percent Auto 0.4 % (0.2-1.2); Eosinophils Absolute Auto 0.2 K/mm3 (0-0.3); Eosinophils Percent Auto 3.4 % (0-4.4); Hematocrit 23.7 % (37.0-47.0); Hemoglobin 7.4 g/dL (12.0-15.0); Immature Granulocyte Absolute 0.03 K/mm3 (0.00-0.031); Immature Granulocyte Percent A 0.6 % (0-0.5); Immature Platelet Fraction Pct 2.2 % (0.9-11.2); Lymphocytes Absolute Auto 0.98 K/mm3 (0.9-3.2); Lymphocytes Percent Auto 19.4 % (18.3-44.2); Mean Corpuscular HGB Conc 31.2 g/dl (32-36); Mean Corpuscular Hemoglobin 31.1 pg (26-34); Mean Corpuscular Volume 99.6 fl (80-100); Mean Platelet Volume 9.6 fl (7.4-10.4); Monocytes Absolute Auto 0.3 K/mm3 (0.1-0.6); Monocytes Percent Auto 6.2 % (2.6-8.5); Neutrophils Absolute Auto 3.5 K/mm3 (1.3-6.7); Platelet Count Result 92 k/mm3 (150-375); Red Blood Count 2.38 M/mm3 (4.2-5.4); Red Cell Distribution Width 14.7 % (11.5-14.5)
[2023-06-20 06:23] LABS: Lactic Acid Reflex 1.5 mmol/L (0.7-2.0)
[2023-06-20 06:24] LABS: Alanine Aminotransferase 14 U/L (6-35); Albumin Level 3.7 g/dL (3.5-5.1); Alkaline Phosphatase 112 U/L (38-126); Anion Gap 7 mmol/L (8-16); Aspartate Amino Transferase 25 U/L (14-36); Bilirubin,Total 1.4 mg/dL (0.2-1.3); Blood Urea Nitrogen 28 mg/dL (7-17); Calcium 9.1 mg/dL (8.4-10.2); Carbon Dioxide 21 mmol/L (22-30); Chloride 106 mmol/L (98-107); Estimated CRCL calculation 41 ml/min; Estimated Glomerular Filt Rate 53; Glucose 91 mg/dL (65-110); Phosphorus 3.4 mg/dL (2.5-4.5); Potassium 3.9 mmol/L (3.4-5.0); Sodium 134 mmol/L (137-145)
[2023-06-20] MEDS: GABAPENTIN 300 MG CAPSULE PO ×2 (08:24→16:34)
[2023-06-20] MEDS: SENNOSIDES 8.6 MG TABLET PO (08:24)
[2023-06-20] MEDS: LIDOCAINE 5% PATCH 1 PATCH TRANSDERM (08:24)
[2023-06-20] MEDS: ASCORBIC ACID 500 MG TABLET PO (08:24)
[2023-06-20] MEDS: APIXABAN 5 MG TABLET PO ×2 (08:24→20:28)
--- NOTE | 2023-06-20 08:37 | WPDINTPN ---
Progress Note: A&P Assessment and Plan (1) Septic shock: Code(s): A41.9 - Sepsis, unspecified organism; R65.21 - Severe sepsis with septic shock Status: Acute Assessment and Plan: 06/17: patient presented to the ED with lethargy, hypotension, malfunction of Christy catheter - received 3 L IV fluids in the ER despite which her blood pressures were low, central line was placed in the right IJ stent. Started on Levophed -off Levophed, continue to maintain MAP > 65 mmHg at all times adequate end organ perfusion - lactic acid has normalized - new Christy catheter was inserted in the ER with 1000 mL in urine drainage - creatinine trending down - likely source of infection is urine is and left easily ulcer which is foul smelling - continue Zosyn and vancomycin (06/17) - 06/17: blood cultures growing Proteus mirabilis - 06/17: Urine cultures obtained and pending 06/19: Lactic acid increased this morning, will give additional IV fluid bolus and continue to monitor lactic acid. May need CT scan of the abdomen and pelvis since she has a history of AFib -06/20: Lactic acid has improved after receiving some fluids, urine output has been adequate, blood pressures have been stable (2) Acute UTI: Code(s): N39.0 - Urinary tract infection, site not specified Status: Acute Assessment and Plan: acute urinary tract infection likely related to Christy malfunction and urinary retention - urine cultures negative, continue antibiotics as above (3) Decubitus ulcer, heel, left, unstageable: Code(s): L89.620 - Pressure ulcer of left heel, unstageable Status: Acute Assessment and Plan: left decubitus heels ulcer with eschar and foul smell - wound care has been following -06/18: Debridement of left heel ulcer done by surgery -continue antibiotics as above (4) Chronic paraplegia: Code(s): G82.20 - Paraplegia, unspecified Status: Acute Assessment and Plan: 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 (5) Paroxysmal A-fib: Code(s): I48.0 - Paroxysmal atrial fibrillation Status: Acute Assessment and Plan: currently in AFib, rate controlled, -started on home metoprolol and home apixaban (6) DIA (acute kidney injury): Code(s): N17.9 - Acute kidney failure, unspecified Status: Acute Assessment and Plan: acute kidney injury likely related to UTI, hypotension, infection, ATN - received adequate IV fluids - albumin for volume expansion - lactic acid increase this morning, will give 1 L IV fluid bolus continue to monitor lactic acid level - continue monitor renal function, electrolytes and urine output -creatinine has normalized to 1.00 (creatinine was 1.70 on admission) Plan DVT prophylaxis: Apixaban Stress ulcer prophylaxis: not recommended Nutrition: heart healthy diet Code Status: do not resuscitate / do not intubate okay with central line and vasopressors Critical Care Time Spent: 31 minutes Okay to transfer out of the ICU Due to a high probability of clinically significant, life threatening deterioration, the patient required my highest level of preparedness to intervene emergently and I personally spent this critical care time directly and personally managing the patient. This critical care time included obtaining a history; examining the patient; pulse oximetry; ordering and review of studies; arranging urgent treatment with development of a management plan; evaluation of patient's response to treatment; frequent reassessment; and discussions with other providers. It was exclusive of separately billable procedures and treating other patients and teaching time. Please see Assessment and Plan section and the rest of the note for further information on patient assessment and treatment This dictation may have been done utilizing a voice recognition system. Attempts have been m
[2023-06-20 10:02] LABS: Iron 42 ug/dL (37-170)
[2023-06-20 10:22] LABS: Percent Iron Saturation 24 % (20-50)
[2023-06-20 11:05] LABS: Folic Acid 6.6 ng/mL (2.76->20)
--- NOTE | 2023-06-20 11:17 | P.PNINT_ITS ---
WRONG NOTE Progress Note: A&P Assessment and Plan (1) Septic shock: Code(s): A41.9 - Sepsis, unspecified organism; R65.21 - Severe sepsis with septic shock Status: Acute Assessment and Plan: 06/17: patient presented to the ED with lethargy, hypotension, malfunction of Christy catheter - received 3 L IV fluids in the ER despite which her blood pressures were low, central line was placed in the right IJ stent. Started on Levophed -off Levophed, continue to maintain MAP > 65 mmHg at all times adequate end organ perfusion - lactic acid has normalized - new Christy catheter was inserted in the ER with 1000 mL in urine drainage - creatinine trending down - likely source of infection is urine is and left easily ulcer which is foul smelling - continue Zosyn and vancomycin (06/17) - 06/17: blood cultures growing Proteus mirabilis - 06/17: Urine cultures obtained and pending 06/19: Lactic acid increased this morning, will give additional IV fluid bolus and continue to monitor lactic acid. May need CT scan of the abdomen and pelvis since she has a history of AFib -06/20: Lactic acid has improved after receiving some fluids, urine output has been adequate, blood pressures have been stable (2) Acute UTI: Code(s): N39.0 - Urinary tract infection, site not specified Status: Acute Assessment and Plan: acute urinary tract infection likely related to Christy malfunction and urinary retention - urine cultures negative, continue antibiotics as above (3) Decubitus ulcer, heel, left, unstageable: Code(s): L89.620 - Pressure ulcer of left heel, unstageable Status: Acute Assessment and Plan: left decubitus heels ulcer with eschar and foul smell - wound care has been following -06/18: Debridement of left heel ulcer done by surgery -continue antibiotics as above (4) Chronic paraplegia: Code(s): G82.20 - Paraplegia, unspecified Status: Acute Assessment and Plan: 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 (5) Paroxysmal A-fib: Code(s): I48.0 - Paroxysmal atrial fibrillation Status: Acute Assessment and Plan: currently in AFib, rate controlled, -started on home metoprolol and home apixaban (6) DIA (acute kidney injury): Code(s): N17.9 - Acute kidney failure, unspecified Status: Acute Assessment and Plan: acute kidney injury likely related to UTI, hypotension, infection, ATN - received adequate IV fluids - albumin for volume expansion - lactic acid increase this morning, will give 1 L IV fluid bolus continue to monitor lactic acid level - continue monitor renal function, electrolytes and urine output -creatinine has normalized to 1.00 (creatinine was 1.70 on admission) Plan DVT prophylaxis: Apixaban Stress ulcer prophylaxis: not recommended Nutrition: heart healthy diet Code Status: do not resuscitate / do not intubate okay with central line and vasopressors Critical Care Time Spent: 31 minutes Okay to transfer out of the ICU Due to a high probability of clinically significant, life threatening deterioration, the patient required my highest level of preparedness to intervene emergently and I personally spent this critical care time directly and personally managing the patient. This critical care time included obtaining a history; examining the patient; pulse oximetry; ordering and review of studies; arranging urgent treatment with development of a management plan; evaluation of patient's response to treatment; frequent
--- NOTE | 2023-06-20 11:18 | PCFNICU ---
ICU Rounding Note: Pt current nutrition is Heart Healthy. Last recorded weight is 87.9 kg, up from 83.6 kg on admit. Bowel Motility:+BM reported 06/18 Labs Reviewed:BUN 28, Na 134, Hct 23.7,Hgb 7.4 Meds Noted:Lovenox, Bactrim,Vit C, Lopressor, Senokot Skin: right heel-Deep Tissue left heel-unstageable buttock-stage III PU Additional Notes: Patient remains on heart healthy diet. Oral Intake has been fair, 25-50% of meals. Patient is consuming diet supplements of Ensure Compact BID (220 kcals/9 gms protein)and Felix BID (80kcals/2.5 gms protein). Plans to downgrade from ICU status. Agree with diet orders. RD will monitor weight, skin, labs, meds, oral intake every 5 days.
[2023-06-20] MEDS: SULFAMETHOXAZOLE/TRIMETHOPRIM 800/160 MG DS TABLET 2 TAB PO ×2 (12:32→20:28)
[2023-06-20] MEDS: ACETAMINOPHEN 500 MG TABLET 1000 MG PO ×2 (13:46→19:52)
--- NOTE | 2023-06-20 15:28 | W.PM.PROC2 ---
Procedure Note - Detailed Date of Procedure 06/20/23 Pre-op Diagnosis Left heel ulcer Post-op Diagnosis Same Procedure Performed Sharp excisional debridement of left heel ulcer including skin and subcutaneous tissue, measuring 3 cm x 3 cm Surgeon Concha Milligan, INDUSTRIAL X RAY OPERATOR Field Representatives Director Dr. Vicente Ramirez Anesthesia None Indications This is an 88-year-old woman who presented with sepsis, UTI, and a necrotic left heel ulcer. She had an intradural hematoma that was evacuated in April of 2023, and has since been paraplegic with no lower extremity sensation. X-rays of the left foot are negative for osteomyelitis. She underwent excisional debridement of the left heel ulcer 2 days ago at the bedside. Since then, she has had local wound care with silver gel dressing changes. Today, there is a scant amount of purulent drainage coming from the edges of the wound with some necrotic tissue at the edges. Patient agreed to proceed with excisional debridement at the bedside today. Findings Left heel ulcer that extends down to subcutaneous tissue, does not probe to bone. Slight undermining towards the plantar aspect of her foot about 1 cm. Description of Procedure The patient was placed in the right lateral position in the ICU bed so that her posterior heel would be exposed. Patient and location of wound verified. Following this, sterile prep was carried out over the wound with iodine swabs. The area was draped. I used a #15 blade scalpel and pickups for debridement of the necrotic tissue. Debridement was carried down to healthy bleeding subcutaneous tissue. The wound measured 3 cm x 3 cm x 1 cm. Silver gel and a gauze dressing was applied. She tolerated the procedure well.? Estimated Blood Loss 0 Drains No Packing No Pathology None sent Complications No immediate complications Condition Stable Disposition No change [facility] Billing Surgery - Charge Forward: Surgery Billing
--- NOTE | 2023-06-20 15:38 | PM.PNGS ---
Progress Note: A&P Assessment and Plan (1) Decubitus ulcer, heel, left, unstageable: Code(s): L89.620 - Pressure ulcer of left heel, unstageable Status: Acute Assessment and Plan: S/p bedside excisional debridement of left heel ulcer on 06/18. There was some purulent drainage noted at the edges of the wound with tracking towards the plantar aspect of the foot and an area that probes deeper towards the heel. Discussed options with the patient of continuing local wound care vs proceeding with bedside excisional debridement. Description of the procedure, risks, benefits, and expected wound care were again discussed. She agrees to proceed. Will continue silver gel dressing changes after debridement. (2) Septic shock: Code(s): A41.9 - Sepsis, unspecified organism; R65.21 - Severe sepsis with septic shock Status: Acute (3) Chronic paraplegia: Code(s): G82.20 - Paraplegia, unspecified Status: Acute Plan I have discussed the patient's case and plan of care with Dr. Ramirez, who came to the bedside to assess the wound prior to debridement. Subjective Subjective Date/Time Seen: 06/20/23 14:38 Patient reports: no new complaints Interval history: Patient seen today with the wound care nurse, Ana María. She has no acute complaints. Dressing change has not been done per nursing. Exam Narrative: Left heel dressing removed with the ulcer appearing dusky with some necrotic tissue circumferentially on the edge of the wound that had scant purulent drainage seeping through when pushing on the wound, the wound bed is soft and has slight purulence to the base of the posterior aspect of the wound. No surrounding erythema. This tracks about 1 cm towards the plantar aspect of the foot. Objective Data Vital Signs Vital Signs: Vital Signs - 24 hr 06/19/23 16:00 06/19/23 16:34 06/19/23 16:49 Temperature 98.0 F Pulse Rate 78 86 90 Respiratory Rate 19 Blood Pressure 127/60 132/86 102/64 Pulse Oximetry 97 Oxygen Delivery Oxygen Flow Rate 06/19/23 16:50 06/19/23 16:00 06/19/23 18:00 Temperature Pulse Rate 87 78 81 Respiratory Rate Blood Pressure Pulse Oximetry Oxygen Delivery Oxygen Flow Rate 06/19/23 18:00 06/19/23 19:58 06/19/23 20:00 Temperature Pulse Rate 81 79 Respiratory Rate 19 20 Blood Pressure 107/52 L Pulse Oximetry 98 96 Oxygen Delivery Room Air Oxygen Flow Rate 06/19/23 20:11 06/19/23 20:43 06/19/23 20:00 Temperature Pulse Rate 83 98 77 Respiratory Rate 20 Blood Pressure 127/97 H Pulse Oximetry Oxygen Delivery Oxygen Flow Rate 06/19/23 20:00 06/19/23 20:00 06/19/23 22:00 Temperature 99.6 F Pulse Rate 80 91 Respiratory Rate 24 H 24 H Blood Pressure 134/72 115/60 Pulse Oximetry 98 96 Oxygen Delivery Room Air Oxygen Flow Rate 06/19/23 22:00 06/19/23 23:33 06/19/23 23:40 Temperature Pulse Rate 96 92 100 Respiratory Rate Blood Pressure 122/62 Pulse Oximetry Oxygen Delivery Oxygen Flow Rate 06/20/23 00:00 06/20/23 00:00 06/20/23 00:00 Temperature 100.3 F H Pulse Rate 88 91 Respiratory Rate 23 H Blood Pressure 122/71 Pulse Oximetry 94 94 Oxygen Delivery Nasal Cannula Oxygen Flow Rate 1 06/20/23 01:26 06/20/23 01:26 06/20/23 01:38 Temperature Pulse Rate 77 77 Respiratory Rate 19 18 Blood Pressure Pulse Oximetry 92 Oxygen Delivery Nasal Cannula Oxygen Flow Rate 1 06/20/23 02:00 06/20/23 02:00 06/20/23 05:58 Temperature 100.1 F H Pulse Rate 79 78 77 Respiratory Rate 23 H Blood Pressure 94/65 L Pulse Oximetry 96 Oxygen Delivery Oxygen Flow Rate 06/20/23 04:00 06/20/23 06:00 06/20/23 04:00 Temperature 99.8 F H Pulse Rate 80 82 82 Respiratory Rate 18 Blood Pressure 111/62 Pulse Oximetry 99 Oxygen Delivery Oxygen Flow Rate 06/20/23 06:00 06/20/23 04:00 06/20/23 08:08 Temperat
[2023-06-21] VITALS (16 sets, daily range): BP systolic 87–103; BP diastolic 41–62; PULSE 72–112; RESP 16–22; TEMP 36.6–37; O2SAT 98–100
[2023-06-21] MEDS: IPRATROPIUM BR 0.02% INH SOLN 0.5 MG/2.5 ML VIAL INHALATION ×4 (02:50→20:19)
[2023-06-21] MEDS: ALBUTEROL SULFATE NEB 2.5 MG/3 ML INH INHALATION ×4 (02:50→20:19)
[2023-06-21 06:31] LABS: Basophils Percent Auto 0.2 % (0.2-1.2); Eosinophils Absolute Auto 0.3 K/mm3 (0-0.3); Eosinophils Percent Auto 6.9 % (0-4.4); Hemoglobin 8.2 g/dL (12.0-15.0); Immature Granulocyte Absolute 0.02 K/mm3 (0.00-0.031); Immature Granulocyte Percent A 0.4 % (0-0.5); Lymphocytes Absolute Auto 0.89 K/mm3 (0.9-3.2); Lymphocytes Percent Auto 19.9 % (18.3-44.2); Mean Corpuscular HGB Conc 31.5 g/dl (32-36); Mean Corpuscular Hemoglobin 31.3 pg (26-34); Mean Corpuscular Volume 99.2 fl (80-100); Mean Platelet Volume 9.7 fl (7.4-10.4); Monocytes Absolute Auto 0.4 K/mm3 (0.1-0.6); Monocytes Percent Auto 7.8 % (2.6-8.5); Neutrophils Absolute Auto 2.9 K/mm3 (1.3-6.7); Neutrophils Percent Auto 64.8 % (45.5-73.1); Platelet Count Result 108 k/mm3 (150-375); Red Blood Count 2.62 M/mm3 (4.2-5.4); Red Cell Distribution Width 14.6 % (11.5-14.5); White Blood Count 4.5 K/mm3 (4.5-10.0)
[2023-06-21 06:43] LABS: Alanine Aminotransferase 12 U/L (6-35); Albumin Level 3.2 g/dL (3.5-5.1); Alkaline Phosphatase 114 U/L (38-126); Anion Gap 8 mmol/L (8-16); Aspartate Amino Transferase 24 U/L (14-36); Bilirubin,Total 0.7 mg/dL (0.2-1.3); Blood Urea Nitrogen 38 mg/dL (7-17); Calcium 8.9 mg/dL (8.4-10.2); Carbon Dioxide 24 mmol/L (22-30); Chloride 106 mmol/L (98-107); Estimated CRCL calculation 35 ml/min; Estimated Glomerular Filt Rate 43; Glucose 83 mg/dL (65-110); Magnesium 2.1 mg/dL (1.6-2.3); Potassium 4.2 mmol/L (3.4-5.0); Sodium 138 mmol/L (137-145)
[2023-06-21 06:44] LABS: Lactic Acid Reflex 1.1 mmol/L (0.7-2.0)
[2023-06-21] MEDS: CENTRAL LINE FLUSH 10 ML IV PUSH ×3 (07:42→21:25)
[2023-06-21] MEDS: GABAPENTIN 300 MG CAPSULE PO ×2 (08:00→16:53)
[2023-06-21] MEDS: SENNOSIDES 8.6 MG TABLET PO (08:00)
[2023-06-21] MEDS: ACETAMINOPHEN 500 MG TABLET 1000 MG PO ×3 (08:00→23:54)
[2023-06-21] MEDS: LIDOCAINE 5% PATCH 1 PATCH TRANSDERM (08:00)
[2023-06-21] MEDS: APIXABAN 5 MG TABLET PO ×2 (08:00→20:31)
[2023-06-21] MEDS: SULFAMETHOXAZOLE/TRIMETHOPRIM 800/160 MG DS TABLET 2 TAB PO ×2 (08:00→20:31)
[2023-06-21] MEDS: ASCORBIC ACID 500 MG TABLET PO (08:00)
[2023-06-21] MEDS: METOPROLOL TARTRATE 25 MG TABLET PO (08:02)
--- NOTE | 2023-06-21 09:55 | PM.IMPN ---
Progress Note: A&P Assessment and Plan (1) Septic shock: Code(s): A41.9 - Sepsis, unspecified organism; R65.21 - Severe sepsis with septic shock Status: Acute Assessment and Plan: 06/17: patient presented to the ED with lethargy, hypotension, malfunction of Christy catheter - received 3 L IV fluids in the ER despite which her blood pressures were low, central line was placed in the right IJ stent. Started on Levophed -off Levophed, continue to maintain MAP > 65 mmHg at all times adequate end organ perfusion - lactic acid has normalized - new Christy catheter was inserted in the ER with 1000 mL in urine drainage - creatinine trending down - likely source of infection is urine is and left easily ulcer which is foul smelling - continue Zosyn and vancomycin (06/17) - 06/17: blood cultures growing Proteus mirabilis - 06/17: Urine cultures obtained and pending 06/19: Lactic acid increased this morning, will give additional IV fluid bolus and continue to monitor lactic acid. May need CT scan of the abdomen and pelvis since she has a history of AFib -06/20: Lactic acid has improved after receiving some fluids, urine output has been adequate, blood pressures have been stable 06/21: Patient is afebrile, blood pressure is still soft, patient off vasopressors. Will hold metoprolol p.o. patient has hypoalbuminemia likely due to chronic inflammation. Provide albumin 100g once (2) Acute UTI: Code(s): N39.0 - Urinary tract infection, site not specified Status: Acute Assessment and Plan: acute urinary tract infection likely related to Christy malfunction and urinary retention - urine cultures negative, continue antibiotics as above (3) Decubitus ulcer, heel, left, unstageable: Code(s): L89.620 - Pressure ulcer of left heel, unstageable Status: Acute Assessment and Plan: left decubitus heels ulcer with eschar and foul smell - wound care has been following -06/18: Debridement of left heel ulcer done by surgery -continue antibiotics as above Continue wound care (4) Chronic paraplegia: Code(s): G82.20 - Paraplegia, unspecified Status: Acute Assessment and Plan: 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 (5) Paroxysmal A-fib: Code(s): I48.0 - Paroxysmal atrial fibrillation Status: Acute Assessment and Plan: currently in AFib, rate controlled, -started on home continue apixaban Now patient has sinus rhythm [place] problem because of hypotension (6) DIA (acute kidney injury): Code(s): N17.9 - Acute kidney failure, unspecified Status: Acute Assessment and Plan: acute kidney injury likely related to UTI, hypotension, infection, ATN - received adequate IV fluids - albumin for volume expansion - lactic acid increase this morning, will give 1 L IV fluid bolus continue to monitor lactic acid level - continue monitor renal function, electrolytes and urine output -creatinine has normalized to 1.00 (creatinine was 1.70 on admission) DIA resolves Plan DVT prophylaxis: Apixaban Stress ulcer prophylaxis: not recommended Nutrition: heart healthy diet Subjective Date/time seen: 06/21/23 09:55 Interval history: I saw exam patient in the ICU, patient feels better today, still has some pain on on her back. Had transient AFib in the night, blood pressure soft. Patient is afebrile, labs reviewed, patient's anemia, but hemoglobin stable Exam Narrative: General: elderly female in no acute distress HEENT:? pupils are equal and reactive, sclera is clear, moist oral mucosa Neck:? supple Respiratory:? coarse breath sounds bilaterally, adequate air entry, no wheezing Cardiac:? S1-S2 is normal, regular rate and rhythm, systolic murmur 2/6 on the right upper sternal border Abdomen:? obese, soft, nontender, nondistended, hypoactive bowel sounds Extremities:? katherin
[2023-06-21] MEDS: ALBUMIN HUMAN 25% 25 GM/100 ML 200 ML IVPB (17:59)
--- NOTE | 2023-06-21 18:50 | PC.NURSE ---
This patient, Terrie Humphries, was transferred to [[facility]] on 06/21/23 at 1850. Personal belongings sent with patient. Report given to [Magdalena LIM]. Appropriate documentation sent with patient.
[2023-06-21] MEDS: traMADol HCL (*CRX) 25 MG TABLET PO (21:24)
[2023-06-22] VITALS (10 sets, daily range): BP systolic 101–114; BP diastolic 40–48; PULSE 73–83; RESP 13–20; TEMP 36.4–37.5; O2SAT 96–98
[2023-06-22] MEDS: IPRATROPIUM BR 0.02% INH SOLN 0.5 MG/2.5 ML VIAL INHALATION ×4 (02:45→19:43)
[2023-06-22] MEDS: ALBUTEROL SULFATE NEB 2.5 MG/3 ML INH INHALATION ×4 (02:45→19:42)
[2023-06-22] MEDS: oxyCODONE/ACETAMINOPHEN (*CRX) 5-325 MG TABLET 1 TABLET PO ×3 (05:10→20:47)
[2023-06-22] MEDS: CENTRAL LINE FLUSH 10 ML IV PUSH ×3 (05:27→22:00)
[2023-06-22 05:33] LABS: Basophils Percent Auto 0.4 % (0.2-1.2); Eosinophils Absolute Auto 0.4 K/mm3 (0-0.3); Eosinophils Percent Auto 7.8 % (0-4.4); Hematocrit 24.9 % (37.0-47.0); Hemoglobin 7.8 g/dL (12.0-15.0); Immature Granulocyte Absolute 0.02 K/mm3 (0.00-0.031); Immature Granulocyte Percent A 0.4 % (0-0.5); Lymphocytes Absolute Auto 1.19 K/mm3 (0.9-3.2); Lymphocytes Percent Auto 23.7 % (18.3-44.2); Mean Corpuscular HGB Conc 31.3 g/dl (32-36); Mean Corpuscular Hemoglobin 31.3 pg (26-34); Mean Platelet Volume 9.9 fl (7.4-10.4); Monocytes Absolute Auto 0.4 K/mm3 (0.1-0.6); Monocytes Percent Auto 7.6 % (2.6-8.5); Neutrophils Percent Auto 60.1 % (45.5-73.1); Platelet Count Result 119 k/mm3 (150-375); Red Blood Count 2.49 M/mm3 (4.2-5.4); Red Cell Distribution Width 14.6 % (11.5-14.5)
[2023-06-22 05:43] LABS: Alanine Aminotransferase 12 U/L (6-35); Albumin Level 3.6 g/dL (3.5-5.1); Alkaline Phosphatase 114 U/L (38-126); Anion Gap 11 mmol/L (8-16); Aspartate Amino Transferase 21 U/L (14-36); Bilirubin,Total 0.6 mg/dL (0.2-1.3); Blood Urea Nitrogen 47 mg/dL (7-17); Calcium 9.2 mg/dL (8.4-10.2); Carbon Dioxide 21 mmol/L (22-30); Chloride 102 mmol/L (98-107); Estimated CRCL calculation 30 ml/min; Estimated Glomerular Filt Rate 36; Glucose 79 mg/dL (65-110); Magnesium 2.2 mg/dL (1.6-2.3); Phosphorus 3.9 mg/dL (2.5-4.5); Potassium 4.1 mmol/L (3.4-5.0); Sodium 134 mmol/L (137-145)
--- NOTE | 2023-06-22 08:58 | PM.IMPN ---
Progress Note: A&P Assessment and Plan (1) Septic shock: Code(s): A41.9 - Sepsis, unspecified organism; R65.21 - Severe sepsis with septic shock Status: Acute Assessment and Plan: 06/17: patient presented to the ED with lethargy, hypotension, malfunction of Christy catheter - received 3 L IV fluids in the ER despite which her blood pressures were low, central line was placed in the right IJ stent. Started on Levophed -off Levophed, continue to maintain MAP > 65 mmHg at all times adequate end organ perfusion - lactic acid has normalized - new Christy catheter was inserted in the ER with 1000 mL in urine drainage - creatinine trending down - likely source of infection is urine is and left easily ulcer which is foul smelling - continue Zosyn and vancomycin (06/17) - 06/17: blood cultures growing Proteus mirabilis - 06/17: Urine cultures obtained and pending 06/19: Lactic acid increased this morning, will give additional IV fluid bolus and continue to monitor lactic acid. May need CT scan of the abdomen and pelvis since she has a history of AFib -06/20: Lactic acid has improved after receiving some fluids, urine output has been adequate, blood pressures have been stable 06/21: Patient is afebrile, blood pressure is still soft, patient off vasopressors. Will hold metoprolol p.o. patient has hypoalbuminemia likely due to chronic inflammation. Provide albumin 50g once 06/22 bp stable and afeb. blood cultures growing Proteus mirabilis on 06/17, repeat blood culture (2) Acute UTI: Code(s): N39.0 - Urinary tract infection, site not specified Status: Acute Assessment and Plan: acute urinary tract infection likely related to Christy malfunction and urinary retention - urine cultures negative, continue antibiotics as above (3) Decubitus ulcer, heel, left, unstageable: Code(s): L89.620 - Pressure ulcer of left heel, unstageable Status: Acute Assessment and Plan: left decubitus heels ulcer with eschar and foul smell - wound care has been following -06/18: Debridement of left heel ulcer done by surgery -continue antibiotics as above Continue wound care (4) Chronic paraplegia: Code(s): G82.20 - Paraplegia, unspecified Status: Acute Assessment and Plan: 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 (5) Paroxysmal A-fib: Code(s): I48.0 - Paroxysmal atrial fibrillation Status: Acute Assessment and Plan: currently in AFib, rate controlled, -started on home continue apixaban Now patient has sinus rhythm [place] problem because of hypotension (6) DIA (acute kidney injury): Code(s): N17.9 - Acute kidney failure, unspecified Status: Acute Assessment and Plan: acute kidney injury likely related to UTI, hypotension, infection, ATN - received adequate IV fluids - albumin for volume expansion - receive fluid resuscitation - continue monitor renal function, electrolytes and urine output -creatinine has normalized to 1.40 Na 124 on 06/22. Start normal saline 100 mL/hour Plan DVT prophylaxis: Apixaban Stress ulcer prophylaxis: not recommended Nutrition: heart healthy diet Subjective Date/time seen: 06/22/23 08:58 Interval history: I saw and examined the patient, patient feels better today, blood pressure is stable, patient received albumin 50 g yesterday, labs reviewed, chronic is a trending up, hyponatremia, Exam Narrative: General: elderly female in no acute distress HEENT:? pupils are equal and reactive, sclera is clear, moist oral mucosa Neck:? supple Respiratory:? coarse breath sounds bilaterally, adequate air entry, no wheezing Cardiac:? S1-S2 is normal, regular rate and rhythm, systolic murmur 2/6 on the right upper sternal border Abdomen:? obese, soft, nontender, nondistended, hypoactive bowel sounds Extremities:? bilateral lower e
[2023-06-22] MEDS: SULFAMETHOXAZOLE/TRIMETHOPRIM 800/160 MG DS TABLET 2 TAB PO ×2 (09:32→20:47)
[2023-06-22] MEDS: ASCORBIC ACID 500 MG TABLET PO (09:32)
[2023-06-22] MEDS: SENNOSIDES 8.6 MG TABLET PO (09:32)
[2023-06-22] MEDS: APIXABAN 5 MG TABLET PO ×2 (09:32→20:47)
[2023-06-22] MEDS: GABAPENTIN 300 MG CAPSULE PO ×2 (09:33→17:33)
[2023-06-22] MEDS: LIDOCAINE 5% PATCH 1 PATCH TRANSDERM (09:33)
[2023-06-22] MEDS: SODIUM CHLORIDE 0.9% IV 1,000 ML 100 ML IV CONT ×2 (09:38→19:34)
[2023-06-23] VITALS (13 sets, daily range): BP systolic 91–122; BP diastolic 40–62; PULSE 78–91; RESP 14–20; TEMP 36.4–37.2; O2SAT 96–99
[2023-06-23] MEDS: ALBUTEROL SULFATE NEB 2.5 MG/3 ML INH INHALATION ×4 (01:35→19:33)
[2023-06-23] MEDS: IPRATROPIUM BR 0.02% INH SOLN 0.5 MG/2.5 ML VIAL INHALATION ×4 (01:35→19:33)
[2023-06-23] MEDS: SODIUM CHLORIDE 0.9% IV 1,000 ML 100 ML IV CONT (05:09)
[2023-06-23 06:17] LABS: Basophils Percent Auto 0.4 % (0.2-1.2); Eosinophils Absolute Auto 0.3 K/mm3 (0-0.3); Eosinophils Percent Auto 6.5 % (0-4.4); Hematocrit 24.3 % (37.0-47.0); Hemoglobin 7.6 g/dL (12.0-15.0); Immature Granulocyte Absolute 0.03 K/mm3 (0.00-0.031); Immature Granulocyte Percent A 0.6 % (0-0.5); Lymphocytes Percent Auto 28.1 % (18.3-44.2); Mean Corpuscular HGB Conc 31.3 g/dl (32-36); Mean Corpuscular Hemoglobin 31.7 pg (26-34); Mean Corpuscular Volume 101.3 fl (80-100); Mean Platelet Volume 9.9 fl (7.4-10.4); Monocytes Absolute Auto 0.4 K/mm3 (0.1-0.6); Monocytes Percent Auto 8.4 % (2.6-8.5); Neutrophils Absolute Auto 2.6 K/mm3 (1.3-6.7); Platelet Count Result 126 k/mm3 (150-375); Red Cell Distribution Width 14.9 % (11.5-14.5); White Blood Count 4.6 K/mm3 (4.5-10.0)
[2023-06-23] MEDS: CENTRAL LINE FLUSH 10 ML IV PUSH (06:29)
[2023-06-23 06:33] LABS: Alanine Aminotransferase 10 U/L (6-35); Albumin Level 3.2 g/dL (3.5-5.1); Alkaline Phosphatase 112 U/L (38-126); Anion Gap 7 mmol/L (8-16); Aspartate Amino Transferase 21 U/L (14-36); Bilirubin,Total 0.4 mg/dL (0.2-1.3); Blood Urea Nitrogen 50 mg/dL (7-17); Calcium 8.9 mg/dL (8.4-10.2); Carbon Dioxide 21 mmol/L (22-30); Chloride 108 mmol/L (98-107); Estimated CRCL calculation 33 ml/min; Estimated Glomerular Filt Rate 39; Glucose 75 mg/dL (65-110); Sodium 136 mmol/L (137-145)
--- NOTE | 2023-06-23 08:23 | PM.IMPN ---
Progress Note: A&P Assessment and Plan (1) Septic shock: Code(s): A41.9 - Sepsis, unspecified organism; R65.21 - Severe sepsis with septic shock Status: Acute Assessment and Plan: 06/17: patient presented to the ED with lethargy, hypotension, malfunction of Christy catheter - received 3 L IV fluids in the ER despite which her blood pressures were low, central line was placed in the right IJ stent. Started on Levophed -off Levophed, continue to maintain MAP > 65 mmHg at all times adequate end organ perfusion - lactic acid has normalized - new Christy catheter was inserted in the ER with 1000 mL in urine drainage - creatinine trending down - likely source of infection is urine is and left easily ulcer which is foul smelling - continue Zosyn and vancomycin (06/17) - 06/17: blood cultures growing Proteus mirabilis - 06/17: Urine cultures obtained and pending 06/19: Lactic acid increased this morning, will give additional IV fluid bolus and continue to monitor lactic acid. May need CT scan of the abdomen and pelvis since she has a history of AFib -06/20: Lactic acid has improved after receiving some fluids, urine output has been adequate, blood pressures have been stable 06/21: Patient is afebrile, blood pressure is still soft, patient off vasopressors. Will hold metoprolol p.o. patient has hypoalbuminemia likely due to chronic inflammation. Provide albumin 50g once 06/22 bp stable and afeb. blood cultures growing Proteus mirabilis on 06/17, repeat blood culture 06/23: Pending BCX, C/W bactrim po since 06/20, will dc bactrim if renal function is worse (2) Acute UTI: Code(s): N39.0 - Urinary tract infection, site not specified Status: Acute Assessment and Plan: acute urinary tract infection likely related to Christy malfunction and urinary retention - urine cultures negative, continue antibiotics as above (3) Decubitus ulcer, heel, left, unstageable: Code(s): L89.620 - Pressure ulcer of left heel, unstageable Status: Acute Assessment and Plan: left decubitus heels ulcer with eschar and foul smell - wound care has been following -06/18: Debridement of left heel ulcer done by surgery -continue antibiotics as above Continue wound care (4) Chronic paraplegia: Code(s): G82.20 - Paraplegia, unspecified Status: Acute Assessment and Plan: 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 (5) Paroxysmal A-fib: Code(s): I48.0 - Paroxysmal atrial fibrillation Status: Acute Assessment and Plan: currently in AFib, rate controlled, -started on home continue apixaban Now patient has sinus rhythm [place] problem because of hypotension (6) DIA (acute kidney injury): Code(s): N17.9 - Acute kidney failure, unspecified Status: Acute Assessment and Plan: acute kidney injury likely related to UTI, hypotension, infection, ATN - received adequate IV fluids - albumin for volume expansion - receive fluid resuscitation - continue monitor renal function, electrolytes and urine output -creatinine has normalized to 1.40 Na 124 on 06/22. Start normal saline 100 mL/hour BP soft and Cr 1.3 BUN 50 increase Ns to 125 ml/h on 06/23, f/u BMP Plan DVT prophylaxis: Apixaban Stress ulcer prophylaxis: not recommended Nutrition: heart healthy diet Subjective Date/time seen: 06/23/23 08:23 Interval history: I saw and examined the patient, patient has no new issue even over the night, back pain is better controlled, blood culture pending. Afebrile, blood pressure stable, but soft Exam Narrative: General: elderly female in no acute distress HEENT:? pupils are equal and reactive, sclera is clear, moist oral mucosa Neck:? supple Respiratory:? coarse breath sounds bilaterally, adequate air entry, no wheezing Cardiac:? S1-S2 is normal, regular rate and rhythm, systol
[2023-06-23] MEDS: APIXABAN 5 MG TABLET PO ×2 (08:57→20:49)
[2023-06-23] MEDS: SULFAMETHOXAZOLE/TRIMETHOPRIM 800/160 MG DS TABLET 2 TAB PO ×2 (08:57→20:50)
[2023-06-23] MEDS: GABAPENTIN 300 MG CAPSULE PO ×2 (08:57→17:37)
[2023-06-23] MEDS: SENNOSIDES 8.6 MG TABLET PO (08:57)
[2023-06-23] MEDS: ASCORBIC ACID 500 MG TABLET PO (08:57)
[2023-06-23] MEDS: oxyCODONE/ACETAMINOPHEN (*CRX) 5-325 MG TABLET 1 TABLET PO ×2 (08:57→17:35)
[2023-06-23] MEDS: LIDOCAINE 5% PATCH 1 PATCH TRANSDERM (08:58)
[2023-06-23] MEDS: SODIUM CHLORIDE 0.9% IV 1,000 ML 125 ML IV CONT (14:44)
[2023-06-23] MEDS: NEOMYCIN/POLYMYXIN/BACITRACIN OINTMENT PACKET 1 PACKET (17:36)
[2023-06-23] MEDS: ALBUMIN HUMAN 25% 25 GM/100 ML 200 ML IVPB (17:36)
--- NOTE | 2023-06-23 19:58 | PC.NURSE ---
Pt is A&O4 female who has participated and contributed in plan of care. Pt reports pain in right back that is treated with Percocet. Pt was changed from Q6 to Q4 percocet. Pt dressing changes done, and pt tolerated well. Pt central line removed, pressure applied, dressing applied. Pt educated on post line removal instructions. Pt verbalizes understanding. Report given to steward/stewardess night nurse. Pt has been monitored for and will continue to be monitored for any changes in status.
[2023-06-24] VITALS (11 sets, daily range): BP systolic 112–134; BP diastolic 40–75; PULSE 70–120; RESP 14–22; TEMP 36.5–36.8; O2SAT 94–98
[2023-06-24] MEDS: oxyCODONE/ACETAMINOPHEN (*CRX) 5-325 MG TABLET 1 TABLET PO ×3 (00:09→20:24)
[2023-06-24] MEDS: SODIUM CHLORIDE 0.9% IV 1,000 ML 125 ML IV CONT ×3 (01:00→16:40)
[2023-06-24] MEDS: ALBUTEROL SULFATE NEB 2.5 MG/3 ML INH INHALATION ×4 (01:53→19:37)
[2023-06-24] MEDS: IPRATROPIUM BR 0.02% INH SOLN 0.5 MG/2.5 ML VIAL INHALATION ×4 (01:53→19:37)
[2023-06-24 06:41] LABS: Estimated CRCL calculation 35 ml/min; Estimated Glomerular Filt Rate 43
--- NOTE | 2023-06-24 07:32 | PM.IMPN ---
Progress Note: A&P Assessment and Plan (1) Septic shock: Code(s): A41.9 - Sepsis, unspecified organism; R65.21 - Severe sepsis with septic shock Status: Acute Assessment and Plan: 06/17: patient presented to the ED with lethargy, hypotension, malfunction of Christy catheter - received 3 L IV fluids in the ER despite which her blood pressures were low, central line was placed in the right IJ stent. Started on Levophed -off Levophed, continue to maintain MAP > 65 mmHg at all times adequate end organ perfusion - lactic acid has normalized - new Christy catheter was inserted in the ER with 1000 mL in urine drainage - creatinine trending down - likely source of infection is urine is and left easily ulcer which is foul smelling - continue Zosyn and vancomycin (06/17) - 06/17: blood cultures growing Proteus mirabilis - 06/17: Urine cultures obtained and pending 06/19: Lactic acid increased this morning, will give additional IV fluid bolus and continue to monitor lactic acid. May need CT scan of the abdomen and pelvis since she has a history of AFib -06/20: Lactic acid has improved after receiving some fluids, urine output has been adequate, blood pressures have been stable 06/21: Patient is afebrile, blood pressure is still soft, patient off vasopressors. Will hold metoprolol p.o. patient has hypoalbuminemia likely due to chronic inflammation. Provide albumin 50g once 06/22 bp stable and afeb. blood cultures growing Proteus mirabilis on 06/17, repeat blood culture 06/23: Pending BCX, C/W bactrim po since 06/20, will dc bactrim if renal function is worse 06/24 blood culture on June 22 has no growth so far, continue Bactrim today, may discharge patient tomorrow you patient condition continued to improve (2) Acute UTI: Code(s): N39.0 - Urinary tract infection, site not specified Status: Acute Assessment and Plan: acute urinary tract infection likely related to Christy malfunction and urinary retention - urine cultures negative, continue antibiotics as above (3) Decubitus ulcer, heel, left, unstageable: Code(s): L89.620 - Pressure ulcer of left heel, unstageable Status: Acute Assessment and Plan: left decubitus heels ulcer with eschar and foul smell - wound care has been following -06/18: Debridement of left heel ulcer done by surgery -continue antibiotics as above Continue wound care (4) Chronic paraplegia: Code(s): G82.20 - Paraplegia, unspecified Status: Acute Assessment and Plan: 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 (5) Paroxysmal A-fib: Code(s): I48.0 - Paroxysmal atrial fibrillation Status: Acute Assessment and Plan: currently in AFib, rate controlled, -started on home continue apixaban Now patient has sinus rhythm [place] problem because of hypotension (6) DIA (acute kidney injury): Code(s): N17.9 - Acute kidney failure, unspecified Status: Acute Assessment and Plan: acute kidney injury likely related to UTI, hypotension, infection, ATN - received adequate IV fluids - albumin for volume expansion - receive fluid resuscitation - continue monitor renal function, electrolytes and urine output -creatinine has normalized to 1.40 Na 124 on 06/22. Start normal saline 100 mL/hour BP soft and Cr 1.3 BUN 50 increase Ns to 125 ml/h on 06/23, f/u BMP Plan DVT prophylaxis: Apixaban Stress ulcer prophylaxis: not recommended Nutrition: heart healthy diet Plan to discharge patient home continue home health care Subjective Date/time seen: 06/24/23 07:32 Interval history: I saw and examined the patient, patient has no new issue even over the night, patient has cough and scant phlegm, dyspnea is improving. Afebrile, blood pressure stable, but soft Exam Narrative: General: elderly female in no acute distress HEENT:? pupils
[2023-06-24] MEDS: SENNOSIDES 8.6 MG TABLET PO (09:01)
[2023-06-24] MEDS: ASCORBIC ACID 500 MG TABLET PO (09:01)
[2023-06-24] MEDS: APIXABAN 5 MG TABLET PO ×2 (09:01→20:24)
[2023-06-24] MEDS: GABAPENTIN 300 MG CAPSULE PO ×2 (09:01→16:40)
[2023-06-24] MEDS: LIDOCAINE 5% PATCH 1 PATCH TRANSDERM (09:01)
[2023-06-24] MEDS: SULFAMETHOXAZOLE/TRIMETHOPRIM 800/160 MG DS TABLET 2 TAB PO ×2 (09:01→20:24)
[2023-06-25] VITALS (12 sets, daily range): BP systolic 129–133; BP diastolic 61–71; PULSE 74–96; RESP 14–22; TEMP 36.4–37.5; O2SAT 95–98
[2023-06-25] MEDS: oxyCODONE/ACETAMINOPHEN (*CRX) 5-325 MG TABLET 1 TABLET PO ×2 (00:46→08:47)
[2023-06-25] MEDS: IPRATROPIUM BR 0.02% INH SOLN 0.5 MG/2.5 ML VIAL INHALATION ×4 (01:35→19:25)
[2023-06-25] MEDS: ALBUTEROL SULFATE NEB 2.5 MG/3 ML INH INHALATION ×4 (01:35→19:25)
[2023-06-25] MEDS: SODIUM CHLORIDE 0.9% IV 1,000 ML 125 ML IV CONT ×2 (05:42→20:31)
[2023-06-25] MEDS: SULFAMETHOXAZOLE/TRIMETHOPRIM 800/160 MG DS TABLET 2 TAB PO (08:46)
[2023-06-25] MEDS: SENNOSIDES 8.6 MG TABLET PO (08:46)
[2023-06-25] MEDS: GABAPENTIN 300 MG CAPSULE PO ×2 (08:46→16:39)
[2023-06-25] MEDS: APIXABAN 5 MG TABLET PO ×2 (08:46→20:30)
[2023-06-25] MEDS: ASCORBIC ACID 500 MG TABLET PO (08:46)
[2023-06-25] MEDS: LIDOCAINE 5% PATCH 1 PATCH TRANSDERM (08:48)
--- NOTE | 2023-06-25 11:46 | PCNFU ---
Nutrition Follow-Up Complete: Increased protein needs as related to wounds as evidenced by pressure ulcers reported. Goal:Adequate Intake of at least 75% of meals/supplements Pt current nutrition is Heart healthy, Ensure compact and KATTY BID. Nutrition recommendation: Last recorded weight is 87.5 kg. Bowel Motility:+ BM 06/23 Labs Reviewed: Hgb:7.6, HCT:24.3, NA:136, GFR:43, BUN:50, Cr:1.3 Meds Noted: eliquis Skin: Right heel DTPI, sacrum DTPI, Left heel unstageable, buttocks stage II Additional Notes: Pt continues on a heart healthy diet, intake varied from 10-50% of meals. Pt is receiving Ensure compact BID and KATTY BID for wound healing. Continue to encourage po intake of meals and supplements. RD will monitor weight, skin, labs, meds, oral intake every 5 days. .
--- NOTE | 2023-06-25 14:36 | PM.IMPN ---
Progress Note: A&P Assessment and Plan (1) Septic shock: Code(s): A41.9 - Sepsis, unspecified organism; R65.21 - Severe sepsis with septic shock Status: Acute Assessment and Plan: 06/17: patient presented to the ED with lethargy, hypotension, malfunction of Christy catheter - received 3 L IV fluids in the ER despite which her blood pressures were low, central line was placed in the right IJ stent. Started on Levophed -off Levophed, continue to maintain MAP > 65 mmHg at all times adequate end organ perfusion - lactic acid has normalized - new Christy catheter was inserted in the ER with 1000 mL in urine drainage - creatinine trending down - likely source of infection is urine is and left easily ulcer which is foul smelling - continue Zosyn and vancomycin (06/17) - 06/17: blood cultures growing Proteus mirabilis - 06/17: Urine cultures obtained and pending 06/19: Lactic acid increased this morning, will give additional IV fluid bolus and continue to monitor lactic acid. May need CT scan of the abdomen and pelvis since she has a history of AFib -06/20: Lactic acid has improved after receiving some fluids, urine output has been adequate, blood pressures have been stable 06/21: Patient is afebrile, blood pressure is still soft, patient off vasopressors. Will hold metoprolol p.o. patient has hypoalbuminemia likely due to chronic inflammation. Provide albumin 50g once 06/22 bp stable and afeb. blood cultures growing Proteus mirabilis on 06/17, repeat blood culture 06/23: Pending BCX, C/W bactrim po since 06/20, will dc bactrim if renal function is worse 06/24 blood culture on June 22 has no growth so far, continue Bactrim today, may discharge patient tomorrow you patient condition continued to improve 06/25: order CT renal stone scan and consider DC samson Am (2) Acute UTI: Code(s): N39.0 - Urinary tract infection, site not specified Status: Acute Assessment and Plan: acute urinary tract infection likely related to Christy malfunction and urinary retention - urine cultures negative, continue antibiotics as above changed to oral bactrim (3) Decubitus ulcer, heel, left, unstageable: Code(s): L89.620 - Pressure ulcer of left heel, unstageable Status: Acute Assessment and Plan: left decubitus heels ulcer with eschar and foul smell - wound care has been following -06/18: Debridement of left heel ulcer done by surgery -continue antibiotics as above Continue wound care (4) Chronic paraplegia: Code(s): G82.20 - Paraplegia, unspecified Status: Acute Assessment and Plan: 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 (5) Paroxysmal A-fib: Code(s): I48.0 - Paroxysmal atrial fibrillation Status: Acute Assessment and Plan: currently in AFib, rate controlled, -started on home continue apixaban Now patient has sinus rhythm [place] problem because of hypotension (6) DIA (acute kidney injury): Code(s): N17.9 - Acute kidney failure, unspecified Status: Acute Assessment and Plan: acute kidney injury likely related to UTI, hypotension, infection, ATN - received adequate IV fluids - albumin for volume expansion - receive fluid resuscitation - continue monitor renal function, electrolytes and urine output - creat much improved on gentle fluid hydration Subjective Date/time seen: 06/25/23 14:36 Interval history: 88-year-old female with past medical history significant for paraplegia, aortic stenosis, congestive heart failure, chronic kidney disease, esophageal varices, hypertension, fatty liver, hepatic cirrhosis, interstitial lung disease, paroxysmal atrial fibrillation, on anticoagulation.? Patient comes to the emergency room after she was lethargic all day and poor per orally intake.? Most of the history has been obtained from family member who is at bedside.? In carito
[2023-06-25] MEDS: BISACODYL 10 MG SUPPOSITORY RECTAL (15:54)
[2023-06-25] MEDS: oxyCODONE/ACETAMINOPHEN (*CRX) 10-325 MG TABLET 1 TAB PO ×2 (16:39→20:30)
[2023-06-25] MEDS: PANTOPRAZOLE 40 MG TABLET PO (20:30)
[2023-06-26] VITALS (13 sets, daily range): BP systolic 107–121; BP diastolic 54–66; PULSE 79–93; RESP 16–20; TEMP 36.8–36.9; O2SAT 95–100
[2023-06-26] MEDS: ALBUTEROL SULFATE NEB 2.5 MG/3 ML INH INHALATION ×4 (01:54→19:11)
[2023-06-26] MEDS: IPRATROPIUM BR 0.02% INH SOLN 0.5 MG/2.5 ML VIAL INHALATION ×4 (01:54→19:11)
[2023-06-26] MEDS: oxyCODONE/ACETAMINOPHEN (*CRX) 10-325 MG TABLET 1 TAB PO ×4 (05:30→20:21)
[2023-06-26 06:52] LABS: Estimated CRCL calculation 42 ml/min; Estimated Glomerular Filt Rate 53
[2023-06-26] MEDS: ASCORBIC ACID 500 MG TABLET PO (09:35)
[2023-06-26] MEDS: APIXABAN 5 MG TABLET PO ×2 (09:35→20:20)
[2023-06-26] MEDS: GABAPENTIN 300 MG CAPSULE PO ×2 (09:35→17:20)
[2023-06-26] MEDS: PANTOPRAZOLE 40 MG TABLET PO ×2 (09:35→20:20)
[2023-06-26] MEDS: SENNOSIDES 8.6 MG TABLET PO (09:36)
[2023-06-26] MEDS: LIDOCAINE 5% PATCH 1 PATCH TRANSDERM (09:48)
--- NOTE | 2023-06-26 13:48 | PM.IMPN ---
Progress Note: A&P Assessment and Plan (1) Septic shock: Code(s): A41.9 - Sepsis, unspecified organism; R65.21 - Severe sepsis with septic shock Status: Acute Assessment and Plan: 06/17: patient presented to the ED with lethargy, hypotension, malfunction of Christy catheter - received 3 L IV fluids in the ER despite which her blood pressures were low, central line was placed in the right IJ stent. Started on Levophed -off Levophed, continue to maintain MAP > 65 mmHg at all times adequate end organ perfusion - lactic acid has normalized - new Christy catheter was inserted in the ER with 1000 mL in urine drainage - creatinine trending down - likely source of infection is urine is and left easily ulcer which is foul smelling - continue Zosyn and vancomycin (06/17) - 06/17: blood cultures growing Proteus mirabilis - 06/17: Urine cultures obtained and pending 06/19: Lactic acid increased this morning, will give additional IV fluid bolus and continue to monitor lactic acid. May need CT scan of the abdomen and pelvis since she has a history of AFib -06/20: Lactic acid has improved after receiving some fluids, urine output has been adequate, blood pressures have been stable 06/21: Patient is afebrile, blood pressure is still soft, patient off vasopressors. Will hold metoprolol p.o. patient has hypoalbuminemia likely due to chronic inflammation. Provide albumin 50g once 06/22 bp stable and afeb. blood cultures growing Proteus mirabilis on 06/17, repeat blood culture 06/23: Pending BCX, C/W bactrim po since 06/20, will dc bactrim if renal function is worse 06/24 blood culture on June 22 has no growth so far, continue Bactrim today, may discharge patient tomorrow you patient condition continued to improve 06/25: ordered kub shows small kidney stones 06/26: pt still in alot of Right flank pain needing pain meds every 4 hours plan consult urology (2) Acute UTI: Code(s): N39.0 - Urinary tract infection, site not specified Status: Acute Assessment and Plan: acute urinary tract infection likely related to Christy malfunction and urinary retention - urine cultures negative, continue antibiotics as above changed to oral bactrim (3) Decubitus ulcer, heel, left, unstageable: Code(s): L89.620 - Pressure ulcer of left heel, unstageable Status: Acute Assessment and Plan: left decubitus heels ulcer with eschar and foul smell - wound care has been following -06/18: Debridement of left heel ulcer done by surgery -continue antibiotics as above Continue wound care (4) Chronic paraplegia: Code(s): G82.20 - Paraplegia, unspecified Status: Acute Assessment and Plan: 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 (5) Paroxysmal A-fib: Code(s): I48.0 - Paroxysmal atrial fibrillation Status: Acute Assessment and Plan: currently in AFib, rate controlled, -started on home continue apixaban Now patient has sinus rhythm [place] problem because of hypotension (6) DIA (acute kidney injury): Code(s): N17.9 - Acute kidney failure, unspecified Status: Acute Assessment and Plan: acute kidney injury likely related to UTI, hypotension, infection, ATN - received adequate IV fluids - albumin for volume expansion - receive fluid resuscitation - continue monitor renal function, electrolytes and urine output - creat much improved on gentle fluid hydration Plan Anemia hb is 7.6 order iron studies, fobt and venofer today Subjective Date/time seen: 06/26/23 13:48 Interval history: 88-year-old female with past medical history significant for paraplegia, aortic stenosis, congestive heart failure, chronic kidney disease, esophageal varices, hypertension, fatty liver, hepatic cirrhosis, interstitial lung disease, paroxysmal atrial fibrillation, on anticoagulation.? Patient comes to the e
[2023-06-26] MEDS: SODIUM CHLORIDE 0.9% IV 1,000 ML 125 ML IV CONT ×2 (14:05→23:23)
--- NOTE | 2023-06-26 14:33 | WPDURCON ---
Assessment and Plan Assessment and plan (1) Acute UTI: Code(s): N39.0 - Urinary tract infection, site not specified Status: Acute Assessment and Plan: Pt. was treated with 5 days of Bactrim, however still having pelvic or lower abdominal pain. Repeat a UA to ensure UTI is improved. She may need another course of oral antibiotics for discharge. (2) Pyelonephritis: Code(s): N12 - Tubulo-interstitial nephritis, not specified as acute or chronic Status: Acute Assessment and Plan: Do a DIANNE to ensure pyelo is improved d/t ongoing pain. No surgical intervention needed at this time. (3) Bilateral renal stones: Code(s): N20.0 - Calculus of kidney Status: Acute Plan No intervention at this time, will continue to monitor. Urology Consult Note HPI Date Seen: 06/26/23 Time Seen: 14:33 Requesting Physician: Daylin Medeiros MD Primary Care Provider: Jorge Salazar, M.DRandell Consult Narrative Reason for consult: Bilateral Pyelonephritis and stones. Narrative: Terrie Humphries is a 88 year old female who presented to the ER on 06/17/23 for worsening abdominal pain that has been present for 2 months. She also c/o lethargy. Her oreilly catheter stopped draining that morning as well. It is unclear how long she has had a oreilly catheter as the patient is a very poor historian despite being A&O x3. She is a paraplegic from a spinal artery infarct. She is noted to have had a UTI with her culture growing Proteus Mirabilis on admission. She was treated with Bactrim from 06/20/23 to 06/15/23 completing 11 doses total. However she still c/o abdominal pain today specific to the right side in the lower quadrant that is intermittent. She also had a CT on 06/17/23 that shows moderate cystitis bilaterally ascending into the ureters as well as left renal atrophy and punctate bilateral calculi. KUB shows only the right renal stones. WBC is 4.6, creatinine 1.00. and she is afebrile. No imaging or UA was repeated. Review of Systems Cardiovascular: Cardiovascular: Denies chest pain Respiratory: Respiratory: Reports no additional respiratory complaints Gastrointestinal: Gastrointestinal: Reports abdominal pain, Denies nausea and Denies vomiting Genitourinary: Genitourinary: Denies hematuria, Denies nocturia, Denies dysuria, Denies pelvic pain, Denies flank pain, Denies urinary incontinence, Denies urinary hesitancy and Denies urinary urgency [facility] Past Medical History Medical History Aortic stenosis Moderate Atypical pneumonia CHF (congestive heart failure) Echocardiogram 10/2021: Normal left ventricular systolic function with EF of 65-70%, mild concentric left ventricular hypertrophy, impaired diastolic relaxation grade 1, moderate left atrial enlargement, [id number] mitral valve regurgitation, moderate aortic stenosis with peak gradient 26 mean gradient 14 and valve area 1.14 with mildly calcified valve cusps trace aortic valve regurgitation, mild tricuspid and pulmonic valve regurgitation Chronic kidney disease, stage 3 (moderate) COVID-19 Esophageal varices Essential (primary) hypertension Fatty liver Hepatic cirrhosis Hx of renal calculi 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
[2023-06-26 15:07] LABS: Iron 50 ug/dL (37-170)
[2023-06-26 15:16] LABS: Percent Iron Saturation 26 % (20-50)
--- NOTE | 2023-06-26 16:14 | PM.PNGS ---
Progress Note: A&P Assessment and Plan (1) Decubitus ulcer, heel, left, unstageable: Code(s): L89.620 - Pressure ulcer of left heel, unstageable Status: Acute Assessment and Plan: Left heel ulcer looks good today. No necrotic tissue or purulent drainage. Continue local wound care with silver gel dressing changes and waffle boots. (2) Chronic paraplegia: Code(s): G82.20 - Paraplegia, unspecified Status: Acute Subjective Subjective Date/Time Seen: 06/26/23 16:14 Interval history: Patient seen this afternoon. No dressing change yet today. No complaints regarding her wound. Exam Narrative: Dressing removed. Left heel wound with some areas of pink viable bleeding tissue and small amount of loose yellow slough, no purulent drainage, no necrotic tissue. Objective Data Vital Signs Vital Signs: Vital Signs - 24 hr 06/25/23 19:26 06/25/23 19:28 06/25/23 19:41 Temperature Pulse Rate 85 80 Respiratory Rate 18 18 Blood Pressure Pulse Oximetry 97 Oxygen Delivery Room Air 06/25/23 21:26 06/25/23 20:00 06/26/23 01:50 Temperature 98.4 F Pulse Rate 96 79 Respiratory Rate 14 18 Blood Pressure 129/71 Pulse Oximetry 97 Oxygen Delivery Room Air 06/26/23 02:06 06/26/23 06:00 06/26/23 07:45 Temperature 98.2 F Pulse Rate 82 87 88 Respiratory Rate 18 16 18 Blood Pressure 109/54 L Pulse Oximetry 95 Oxygen Delivery 06/26/23 07:48 06/26/23 07:57 06/26/23 09:30 Temperature Pulse Rate 88 93 Respiratory Rate 18 18 Blood Pressure Pulse Oximetry 95 Oxygen Delivery Room Air Room Air 06/26/23 13:40 06/26/23 13:54 06/26/23 14:00 Temperature 98.2 F Pulse Rate 89 86 85 Respiratory Rate 18 18 20 Blood Pressure 121/66 Pulse Oximetry 100 Oxygen Delivery Intake/Output Intake/Output: Intake & Output 06/23/23 06/24/23 06/25/23 06/26/23 23:59 23:59 23:59 23:59 Intake Total 5940 2646 3360 1618 Output Total 3300 4065 2650 1200 Balance 2640 610 710 418 Meds/Results Medications: Active Medications Generic Name Dose Route Start Last Admin Trade Name Freq PRN Reason Stop Dose Admin Acetaminophen 1,000 mg 06/18/23 23:52 06/21/23 23:54 Acetaminophen 500 Mg Tablet PO 1,000 mg Q6H PRN Administration Mild Pain (1-3) or Fever Albuterol 2.5 mg 06/18/23 14:00 06/26/23 13:40 Albuterol Sulfate Neb 2.5 Mg/3 Ml Inh INHALATION 2.5 mg Q6HRT PAULA Administration Apixaban 5 mg 06/19/23 09:00 06/26/23 09:35 Apixaban 5 Mg Tablet PO 5 mg Q12HR PAULA Administration Ascorbic Acid 500 mg 06/19/23 09:00 06/26/23 09:35 Ascorbic Acid 500 Mg Tablet PO 07/19/23 08:59 500 mg DAILY PAULA Administration Gabapentin 300 mg 06/19/23 09:00 06/26/23 09:35 Gabapentin 300 Mg Capsule PO 07/19/23 08:59 300 mg BID PAULA Administration Sodium Chloride 1,000 mls @ 125 mls/hr 06/22/23 09:05 06/26/23 14:05 Normal Saline Iv IV CONT 125 mls/hr .Q8H PAULA Administration Iron Sucrose 300 mg/ Sodium 115 mls @ 76.667 mls/hr 06/26/23 15:00 Chloride IVPB 06/26/23 16:29 ONCE ONE Ipratropium [place] 0.5 mg 06/18/23 14:00 06/26/23 13:40 Ipratropium Br 0.02% Inh Soln 0.5 Mg/2.5 Ml Vial INHALATION 0.5 mg Q6HRT PAULA Administration Lidocaine 1 patch 06/19/23 09:00 06/26/23 09:48 Lidocaine 5% Patch TRANSDERM 1 patch DAILY PAULA Administration Metoprolol Tartrate 25 mg 06/19/23 07:25 06/21/23 08:02 Metoprolol Tartrate 25 Mg Tablet PO 25 mg Q6HR PAULA Administration Oxycodone/Acetaminophen 1 tab 06/25/23 19:53 06/26/23 14:01 Oxycodone/Acetaminophen (*Crx) 10-325 Mg Tablet PO 1 tab Q4H PRN Administration Pain Rated 7-10 Pantoprazole Sodium 40 mg 06/25/23 21:00 06/26/23 09:35 Pantoprazole 40 Mg Tablet PO 40 mg Q12HR PAULA Administration Senna 8.6 mg 06/19/23 09:00 06/26/23 09:36 Sennosides 8.6 Mg Tablet PO 8.6 mg DAILY PAULA Administrat
--- NOTE | 2023-06-26 17:25 | PDONCCN ---
HPI - Date of Consult Date/Time: 06/26/23 18:19 <JorgeCatrachoRandell - 06/26/23 18:19> 06/26/23 17:25 <Jeanie Waite - 06/26/23 17:45> Requesting Physician: Daylin Medeiros MD <Jorge,Catracho Chary - 06/26/23 18:19> Daylin Medeiros MD <Jeanie Waite - 06/26/23 17:45> Primary Care Provider: Jorge SalazarAngus <JorgeCatrachoRandell - 06/26/23 18:19> Jorge SalazarAngus <Jeanie Waite - 06/26/23 17:45> - Consult Narrative Reason for consult: Anemia <Jeanie Waite - 06/26/23 17:45> Narrative: Terrie Humphries is a 88 year old female <JorgeCatrachoRandell - 06/26/23 18:19> Terrie Humphries is a 88 year old female with a past medical history of aortic stenosis, fatty liver, hyperlipidemia, atrial fibrillation, osteopenia, consulted for anemia and thrombocytopenia after being admitted for sepsis due to a urinary tract infection. Most recent lab work revealed WBC 4.6, Hgb 7.6, Plts 126,000, and creatitine of 1.20, iron 50, % saturation 26, and ferritin 129. Patient received iron sucrose infusion. She states she has not been anemic before. She follows with Dr. Lundberg for kidney disease. I believe this anemia to be multifactorial due to worsening kidney function and infection/inflammatory related. I will order Procrit 20,000units once subQ. With worsening anemia, monitor for bleeding with active Eliquis. I believe she will make a full recovery once sepsis and organ shock has resolved. Please follow up in office after discharge. <Jeanie Waite - 06/26/23 17:45> Review of Systems - Constitutional Denies body ache(s), Denies chills, Denies fatigue <Jeanie Waite - 06/26/23 17:45> - ENT Reports system reviewed and no additional complaints, except as documented <TomacJeanie - 06/26/23 17:45> - Cardiovascular Denies chest pain, Denies lightheadedness, Denies rapid, pounding, or irregular heartbeat <[facility] - 06/26/23 17:45> - Respiratory Denies dyspnea on exertion <[facility] 06/26/23 17:45> - Gastrointestinal Denies abdominal pain, Denies black, tarry stools <[facility] 06/26/23 17:45> - Neurologic Reports system reviewed and no additional complaints, except as documented, Denies tremor(s) <[facility] 06/26/23 17:45> - Hematologic/Lymphatic Denies easy bleeding, Denies easy bruising, Denies enlarged lymph nodes <[facility] 06/26/23 17:45> REPLACED BY [facility] Medical History: Medical History (Last Reviewed 06/26/23 @ 15:01 by Kaye Perez, SUNITA) Aortic stenosis Moderate Atypical pneumonia CHF (congestive heart failure) Echocardiogram 10/2021: Normal left ventricular systolic function with EF of 65-70%, mild concentric left ventricular hypertrophy, impaired diastolic relaxation grade 1, moderate left atrial enlargement, [id number] mitral valve regurgitation, moderate aortic stenosis with peak gradient 26 mean gradient 14 and valve area 1.14 with mildly calcified valve cusps trace aortic valve regurgitation, mild tricuspid and pulmonic valve regurgitation Chronic kidney disease, stage 3 (moderate) COVID-19 Esophageal varices Essential (primary) hypertension Fatty liver Hepatic cirrhosis Hx of renal calculi ILD (interstitial lung disease) intermediate current use of anticoagulant therapy Mixed hyperlipidemia Osteopenia Paroxysmal A-fib Secondary renal hyperparathyroidism Vitamin D deficiency <Catracho Patel - 06/26/23 18:20> Medical History (Last Reviewed 06/26/23 @ 15:01 by Kaye Perez, SUNITA) Aortic stenosis Moderate Atypical pneumonia CHF (congestive heart failure) Echocardiogram 10/2021: Normal left ventricular systolic function with EF of 65-70%, mild concentric left ventricular hypertrophy, impaired diastolic relaxation grade 1, moderate left atrial enlargement, [id number] mitral valve regurgitation, moderate aortic stenosis with peak gradient 26 mean gradient 14 and valve area 1.14 with mild
[2023-06-26] MEDS: EPOETIN ALFA-EPBX 20,000 UNITS/ML VIAL 20000 UNITS SUB-Q (17:59)
[2023-06-26 18:19] LABS: Appearance Urine Clear (Clear); Bacteria Urine None Seen /hpf; Bilirubin Urine Negative (Negative); Blood Urine 1+ (Negative); Color Urine Yellow (Yellow); Glucose Urine UA Negative (Negative); Ketones Urine Negative (Negative); Leukocyte Esterase Ur Trace LEU/UL (NEGATIVE); Nitrate Urine Negative (Negative); Non Pathogenic Casts 0-2; Protein Urine Negative (Negative); Specific Grav Ur 1.008 (1.001-1.035); Squamous Epithelial Cell Urine None seen /hpf (Few); Urobilinogen Urine 0.2 mg/dL (<2.0); WBC Urine 0-5 /hpf (0-3); pH Urine 6.5 (5.0-9.0)
[2023-06-26 18:21] LABS: Add Urine Microscopic? YES
--- NOTE | 2023-06-26 19:21 | PC.NURSE ---
Sophie Saavedra provided care on this patient on 06/26/23. I have reviewed her assessments and agree with her charting
[2023-06-27] MEDS: IPRATROPIUM BR 0.02% INH SOLN 0.5 MG/2.5 ML VIAL INHALATION ×2 (01:09→07:58)
[2023-06-27] MEDS: ALBUTEROL SULFATE NEB 2.5 MG/3 ML INH INHALATION ×2 (01:09→07:58)
[2023-06-27 01:11] VITALS: PULSE 80; RESP 18
[2023-06-27 01:17] VITALS: PULSE 82; RESP 19
[2023-06-27 05:19] VITALS: BP 107/70; PULSE 120; RESP 16; TEMP 36.9; O2SAT 98
[2023-06-27] MEDS: SODIUM CHLORIDE 0.9% IV 1,000 ML 125 ML IV CONT (06:41)
[2023-06-27 07:59] VITALS: PULSE 115; RESP 18; O2SAT 97
[2023-06-27] MEDS: GABAPENTIN 300 MG CAPSULE PO ×2 (08:27→17:08)
[2023-06-27] MEDS: APIXABAN 5 MG TABLET PO ×2 (08:27→21:29)
[2023-06-27] MEDS: LIDOCAINE 5% PATCH 1 PATCH TRANSDERM (08:27)
[2023-06-27] MEDS: ASCORBIC ACID 500 MG TABLET PO (08:27)
[2023-06-27] MEDS: SENNOSIDES 8.6 MG TABLET PO (08:27)
[2023-06-27] MEDS: PANTOPRAZOLE 40 MG TABLET PO ×2 (08:27→21:29)
[2023-06-27] MEDS: oxyCODONE/ACETAMINOPHEN (*CRX) 10-325 MG TABLET 1 TAB PO ×2 (08:30→21:31)
[2023-06-27 10:47] LABS: Hemoglobin 8.4 g/dL (12.0-15.0); Mean Corpuscular HGB Conc 31.1 g/dl (32-36); Mean Corpuscular Hemoglobin 31.6 pg (26-34); Mean Corpuscular Volume 101.5 fl (80-100); Mean Platelet Volume 9.2 fl (7.4-10.4); Platelet Count Result 133 k/mm3 (150-375); Red Blood Count 2.66 M/mm3 (4.2-5.4); Red Cell Distribution Width 15.1 % (11.5-14.5); White Blood Count 4.2 K/mm3 (4.5-10.0)
[2023-06-27 11:15] LABS: Anion Gap 10 mmol/L (8-16); Blood Urea Nitrogen 36 mg/dL (7-17); Calcium 9.6 mg/dL (8.4-10.2); Carbon Dioxide 18 mmol/L (22-30); Chloride 112 mmol/L (98-107); Estimated CRCL calculation 42 ml/min; Estimated Glomerular Filt Rate 53; Glucose 99 mg/dL (65-110); Potassium 5.5 mmol/L (3.4-5.0); Sodium 140 mmol/L (137-145)
--- NOTE | 2023-06-27 11:46 | PM.PNGS ---
Progress Note: A&P Assessment and Plan (1) Decubitus ulcer, heel, left, unstageable: Code(s): L89.620 - Pressure ulcer of left heel, unstageable Status: Acute Assessment and Plan: Left heel ulcer continues to look stable without signs of infection. No necrotic tissue or purulent drainage. Continue local wound care with silver gel dressing changes and waffle boots. Will sign off for now. Can see patient as needed if there are any wound concerns. (2) Chronic paraplegia: Code(s): G82.20 - Paraplegia, unspecified Status: Acute Subjective Subjective Date/Time Seen: 06/27/23 11:47 Interval history: Doing well with heel wound care. No pain in left foot. Exam Extrem: Other: Minimal exudate in wound bed on left heel. Healthy appearing granulation tissue. No further necrosis or tracking. Objective Data Vital Signs Vital Signs: Vital Signs - 24 hr 06/26/23 13:40 06/26/23 13:54 06/26/23 14:00 Temperature 36.8 C Pulse Rate 89 86 85 Respiratory Rate 18 18 20 Blood Pressure 121/66 Pulse Oximetry 100 Oxygen Delivery Fraction of Inspired Oxygen 06/26/23 19:12 06/26/23 19:14 06/26/23 19:21 Temperature Pulse Rate 82 82 83 Respiratory Rate 18 18 Blood Pressure Pulse Oximetry 95 Oxygen Delivery Room Air Fraction of Inspired Oxygen 06/26/23 20:25 06/27/23 01:11 06/27/23 01:17 Temperature 36.9 C Pulse Rate 83 80 82 Respiratory Rate 20 18 19 Blood Pressure 107/57 L Pulse Oximetry 98 Oxygen Delivery Fraction of Inspired Oxygen 06/27/23 05:19 06/27/23 07:59 06/27/23 07:59 Temperature 36.9 C Pulse Rate 120 H 115 H Respiratory Rate 16 18 Blood Pressure 107/70 Pulse Oximetry 98 97 Oxygen Delivery Room Air Fraction of Inspired Oxygen 21 Intake/Output Intake/Output: Intake & Output 06/24/23 06/25/23 06/26/23 06/27/23 23:59 23:59 23:59 23:59 Intake Total 4675 3360 3623 1215 Output Total 4065 2650 2550 3000 Balance 648 506 [id number] Meds/Results Medications: Active Medications Generic Name Dose Route Start Last Admin Trade Name Freq PRN Reason Stop Dose Admin Acetaminophen 1,000 mg 06/18/23 23:52 06/21/23 23:54 Acetaminophen 500 Mg Tablet PO 1,000 mg Q6H PRN Administration Mild Pain (1-3) or Fever Albuterol 2.5 mg 06/27/23 08:25 Albuterol Sulfate Neb 2.5 Mg/3 Ml Inh INHALATION Q6HRT PRN Wheezing Apixaban 5 mg 06/19/23 09:00 06/27/23 08:27 Apixaban 5 Mg Tablet PO 5 mg Q12HR PAULA Administration Ascorbic Acid 500 mg 06/19/23 09:00 06/27/23 08:27 Ascorbic Acid 500 Mg Tablet PO 07/19/23 08:59 500 mg DAILY PAULA Administration Gabapentin 300 mg 06/19/23 09:00 06/27/23 08:27 Gabapentin 300 Mg Capsule PO 07/19/23 08:59 300 mg BID PAULA Administration Sodium Chloride 1,000 mls @ 125 mls/hr 06/22/23 09:05 06/27/23 06:41 Normal Saline Iv IV CONT 125 mls/hr .Q8H PAULA Administration Ipratropium [place] 0.5 mg 06/27/23 08:25 Ipratropium Br 0.02% Inh Soln 0.5 Mg/2.5 Ml Vial INHALATION Q6HRT PRN Wheezing Lidocaine 1 patch 06/19/23 09:00 06/27/23 08:27 Lidocaine 5% Patch TRANSDERM 1 patch DAILY PAULA Administration Metoprolol Tartrate 25 mg 06/19/23 07:25 06/21/23 08:02 Metoprolol Tartrate 25 Mg Tablet PO 25 mg Q6HR PAULA Administration Oxycodone/Acetaminophen 1 tab 06/25/23 19:53 06/27/23 08:30 Oxycodone/Acetaminophen (*Crx) 10-325 Mg Tablet PO 1 tab Q4H PRN Administration Pain Rated 7-10 Pantoprazole Sodium 40 mg 06/25/23 21:00 06/27/23 08:27 Pantoprazole 40 Mg Tablet PO 40 mg Q12HR PAULA Administration Senna 8.6 mg 06/19/23 09:00 06/27/23 08:27 Sennosides 8.6 Mg Tablet PO 8.6 mg DAILY PAULA Administration Sodium Chloride 20 ml 06/20/23 01:48 Central Line Flush IV PUSH PRN PRN after blood draws Radiology Results: ITS Impressions Abdomen/Pelvis
--- NOTE | 2023-06-27 13:40 | PM.IMPN ---
Progress Note: A&P Assessment and Plan (1) Septic shock: Code(s): A41.9 - Sepsis, unspecified organism; R65.21 - Severe sepsis with septic shock Status: Acute Assessment and Plan: 06/17: patient presented to the ED with lethargy, hypotension, malfunction of Christy catheter - received 3 L IV fluids in the ER despite which her blood pressures were low, central line was placed in the right IJ stent. Started on Levophed -off Levophed, continue to maintain MAP > 65 mmHg at all times adequate end organ perfusion - lactic acid has normalized - new Christy catheter was inserted in the ER with 1000 mL in urine drainage - creatinine trending down - likely source of infection is urine is and left easily ulcer which is foul smelling - continue Zosyn and vancomycin (06/17) - 06/17: blood cultures growing Proteus mirabilis - 06/17: Urine cultures obtained and pending 06/19: Lactic acid increased this morning, will give additional IV fluid bolus and continue to monitor lactic acid. May need CT scan of the abdomen and pelvis since she has a history of AFib -06/20: Lactic acid has improved after receiving some fluids, urine output has been adequate, blood pressures have been stable 06/21: Patient is afebrile, blood pressure is still soft, patient off vasopressors. Will hold metoprolol p.o. patient has hypoalbuminemia likely due to chronic inflammation. Provide albumin 50g once 06/22 bp stable and afeb. blood cultures growing Proteus mirabilis on 06/17, repeat blood culture 06/23: Pending BCX, C/W bactrim po since 06/20, will dc bactrim if renal function is worse 06/24 blood culture on June 22 has no growth so far, continue Bactrim today, may discharge patient tomorrow you patient condition continued to improve 06/25: ordered kub shows small kidney stones 06/26: pt still in alot of Right flank pain needing pain meds every 4 hours plan consult urology 06/27: rpt UA (2) Acute UTI: Code(s): N39.0 - Urinary tract infection, site not specified Status: Acute Assessment and Plan: acute urinary tract infection likely related to Christy malfunction and urinary retention - urine cultures negative, continue antibiotics as above changed to oral bactrim - add tamulosin for renal stones continue pain control - rpt UA to check if UTI is resolved (3) Decubitus ulcer, heel, left, unstageable: Code(s): L89.620 - Pressure ulcer of left heel, unstageable Status: Acute Assessment and Plan: left decubitus heels ulcer with eschar and foul smell - wound care has been following -06/18: Debridement of left heel ulcer done by surgery -continue antibiotics as above Continue wound care - surgery team rounding (4) Chronic paraplegia: Code(s): G82.20 - Paraplegia, unspecified Status: Acute Assessment and Plan: 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 (5) Paroxysmal A-fib: Code(s): I48.0 - Paroxysmal atrial fibrillation Status: Acute Assessment and Plan: currently in AFib, rate controlled, -started on home continue apixaban Now patient has sinus rhythm (6) DIA (acute kidney injury): Code(s): N17.9 - Acute kidney failure, unspecified Status: Acute Assessment and Plan: acute kidney injury likely related to UTI, hypotension, infection, ATN - received adequate IV fluids - albumin for volume expansion - receive fluid resuscitation - continue monitor renal function, electrolytes and urine output - Dc fluids Plan Anemia hb is 7.6 order iron studies, fobt and venofer today hematology consulted Subjective Date/time seen: 06/27/23 13:40 Interval history: 88-year-old female with past medical history significant for paraplegia, aortic stenosis, congestive heart failure, chronic kidney disease, esophageal varices, hypertension, fatty liver, hepatic cirrhosis, interstitial jo
[2023-06-27 14:00] VITALS: BP 118/62; PULSE 96; RESP 20; TEMP 36.8; O2SAT 97
[2023-06-27 14:48] LABS: Appearance Urine Clear (Clear); Bacteria Urine None Seen /hpf; Bilirubin Urine Negative (Negative); Blood Urine 1+ (Negative); Color Urine Yellow (Yellow); Glucose Urine UA Negative (Negative); Ketones Urine Negative (Negative); Leukocyte Esterase Ur 1+ LEU/UL (Negative); Nitrate Urine Negative (Negative); Non Pathogenic Casts 0-2; Protein Urine Negative (Negative); Specific Grav Ur 1.011 (1.001-1.035); Squamous Epithelial Cell Urine Few /hpf (Few); Urobilinogen Urine 0.2 mg/dL (<2.0); pH Urine 6.5 (5.0-9.0)
[2023-06-27 14:55] LABS: Add Urine Microscopic? YES
[2023-06-27 22:00] VITALS: BP 127/64; PULSE 97; RESP 16; TEMP 37; O2SAT 96
[2023-06-28 06:00] VITALS: BP 122/67; PULSE 93; RESP 16; TEMP 36.8; O2SAT 96
[2023-06-28 07:21] LABS: Estimated CRCL calculation 45 ml/min; Estimated Glomerular Filt Rate 59
[2023-06-28] MEDS: LIDOCAINE 5% PATCH 1 PATCH TRANSDERM (08:54)
[2023-06-28] MEDS: oxyCODONE/ACETAMINOPHEN (*CRX) 10-325 MG TABLET 1 TAB PO (08:54)
[2023-06-28] MEDS: ASCORBIC ACID 500 MG TABLET PO (08:54)
[2023-06-28] MEDS: TAMSULOSIN HCL 0.4 MG CAPSULE PO (08:54)
[2023-06-28] MEDS: APIXABAN 5 MG TABLET PO ×2 (08:55→21:37)
[2023-06-28] MEDS: PANTOPRAZOLE 40 MG TABLET PO ×2 (08:55→21:37)
[2023-06-28] MEDS: SENNOSIDES 8.6 MG TABLET PO (08:55)
[2023-06-28] MEDS: GABAPENTIN 300 MG CAPSULE PO ×2 (08:55→19:21)
[2023-06-28 14:00] VITALS: BP 83/47; PULSE 84; RESP 14; TEMP 36.2; O2SAT 95
--- NOTE | 2023-06-28 16:17 | PM.IMPN ---
Progress Note: A&P Assessment and Plan (1) Septic shock: Code(s): A41.9 - Sepsis, unspecified organism; R65.21 - Severe sepsis with septic shock Status: Acute (2) Acute UTI: Code(s): N39.0 - Urinary tract infection, site not specified Status: Acute Assessment and Plan: a (3) Decubitus ulcer, heel, left, unstageable: Code(s): L89.620 - Pressure ulcer of left heel, unstageable Status: Acute (4) Chronic paraplegia: Code(s): G82.20 - Paraplegia, unspecified Status: Acute (5) Paroxysmal A-fib: Code(s): I48.0 - Paroxysmal atrial fibrillation Status: Acute (6) DIA (acute kidney injury): Code(s): N17.9 - Acute kidney failure, unspecified Status: Acute Assessment and Plan: Plan Patient continues to complain of back pain more on the right side. She has been paraplegic since few months now had had surgery in her back at [facility]. Has a chronic Christy. Patient presented with generalized weakness and fatigue. She was found to have urinary retention over 1000 UA positive for UTI. Urine culture grew Proteus. IV antibiotics have been transitioned to oral Also had DIA with creatinine 1.7 on admission has resolved now CT abdomen pelvis on admission showed mild keith fullest cystic fluid hepatosplenomegaly and cirrhosis mild ascites moderate esophagitis/gastritis chronic interstitial lung disease moderate cystitis with findings suggestive of bilateral ascending infection mild fecal impaction. Repeat CT abdomen pelvis 06/28/2023 with cirrhosis of liver with portal venous hypertension small volume of ascites diffuse lung disease with mildly pulmonary edema superimposed on chronic interstitial lung disease small pleural effusions gallbladder distension which may be secondary to fasting. Chronic interstitial lung disease and cirrhosis findings were also present abdomen pelvis CT 06/2022 Atrial fibrillation with rapid ventricular rate now controlled history of chronic AFib Septic shock on admission related to UTI with lactic acidosis: Recently required Levophed in the ICU. Treated with broad-spectrum antibiotics. Will bacteremia with Proteus antibiotic was switched to Bactrim Anemia acute on chronic no obvious signs of bleeding however in setting of Eliquis will continue to monitor closely Mild thrombocytopenia UTI renal ultrasound with mild right pelvicaliectasis History of left thigh hematoma related to supratherapeutic INR Bacteremia with Proteus blood culture repeat on 06/22 negative History of aortic stenosis Left heel ulcer status post debridement 06/18/2023 Status post multilevel thoracic laminectomy from T6-T10 for evacuation of intradural hematoma on 04/22/2023. This is in the setting of supratherapeutic INR while patient was on warfarin. DVT prophylaxis on Eliquis Subjective Date/time seen: 06/28/23 16:17 Interval history: Patient continues to complain of back pain more on the right side. She has been paraplegic since few months now had had surgery in her back at [facility]. Has a chronic Christy. Patient presented with generalized weakness and fatigue. She was found to have urinary retention over 1000 UA positive for UTI. Urine culture grew Proteus. IV antibiotics have been transitioned to oral Also had DIA with creatinine 1.7 on admission has resolved now CT abdomen pelvis on admission showed mild keith fullest cystic fluid hepatosplenomegaly and cirrhosis mild ascites moderate esophagitis/gastritis chronic interstitial lung disease moderate cystitis with findings suggestive of bilateral ascending infection mild fecal impaction. Repeat CT abdomen pelvis 06/28/2023 with cirrhosis of liver with portal venous hypertension small volume of ascites diffuse lung disease with mildly pulmonary edema superimposed on chronic interstitial lung disease small pleural effusions gallbladder distension which may be secondary to fasting. Chronic inter
[2023-06-28 21:15] VITALS: BP 116/78; PULSE 108; RESP 16; TEMP 36.7; O2SAT 97
[2023-06-28 22:57] VITALS: O2SAT 96
[2023-06-29 05:48] VITALS: BP 123/59; PULSE 95; RESP 15; TEMP 36.5; O2SAT 96
[2023-06-29 07:25] LABS: Basophils Percent Auto 0.6 % (0.2-1.2); Eosinophils Absolute Auto 0.4 K/mm3 (0-0.3); Eosinophils Percent Auto 8.1 % (0-4.4); Hematocrit 29.2 % (37.0-47.0); Hemoglobin 9.1 g/dL (12.0-15.0); Immature Granulocyte Absolute 0.02 K/mm3 (0.00-0.031); Immature Granulocyte Percent A 0.4 % (0-0.5); Lymphocytes Absolute Auto 1.34 K/mm3 (0.9-3.2); Lymphocytes Percent Auto 27.9 % (18.3-44.2); Mean Corpuscular HGB Conc 31.2 g/dl (32-36); Mean Corpuscular Hemoglobin 31.1 pg (26-34); Mean Corpuscular Volume 99.7 fl (80-100); Mean Platelet Volume 9.3 fl (7.4-10.4); Monocytes Absolute Auto 0.3 K/mm3 (0.1-0.6); Monocytes Percent Auto 6.7 % (2.6-8.5); Neutrophils Absolute Auto 2.7 K/mm3 (1.3-6.7); Neutrophils Percent Auto 56.3 % (45.5-73.1); Platelet Count Result 141 k/mm3 (150-375); Red Blood Count 2.93 M/mm3 (4.2-5.4); White Blood Count 4.8 K/mm3 (4.5-10.0)
[2023-06-29 07:44] LABS: Alanine Aminotransferase 12 U/L (6-35); Albumin Level 3.4 g/dL (3.5-5.1); Alkaline Phosphatase 117 U/L (38-126); Anion Gap 10 mmol/L (8-16); Aspartate Amino Transferase 23 U/L (14-36); Bilirubin,Total 0.6 mg/dL (0.2-1.3); Blood Urea Nitrogen 30 mg/dL (7-17); Calcium 10.7 mg/dL (8.4-10.2); Carbon Dioxide 17 mmol/L (22-30); Chloride 110 mmol/L (98-107); Estimated CRCL calculation 45 ml/min; Estimated Glomerular Filt Rate 59; Glucose 82 mg/dL (65-110); Magnesium 1.6 mg/dL (1.6-2.3); Potassium 5.2 mmol/L (3.4-5.0); Sodium 137 mmol/L (137-145)
[2023-06-29] MEDS: LIDOCAINE 5% PATCH 1 PATCH TRANSDERM (08:56)
[2023-06-29] MEDS: SENNOSIDES 8.6 MG TABLET PO (11:22)
[2023-06-29] MEDS: PANTOPRAZOLE 40 MG TABLET PO ×2 (11:23→21:11)
[2023-06-29] MEDS: TAMSULOSIN HCL 0.4 MG CAPSULE PO (11:23)
[2023-06-29] MEDS: GABAPENTIN 300 MG CAPSULE PO ×2 (11:23→17:08)
[2023-06-29] MEDS: ASCORBIC ACID 500 MG TABLET PO (11:23)
[2023-06-29] MEDS: APIXABAN 5 MG TABLET PO ×2 (11:23→21:11)
[2023-06-29] MEDS: PIPERACILLN/TAZ 3.375GM/NS50ML 3.375 GM/50 ML BAG IVPB ×2 (12:43→17:08)
[2023-06-29 14:00] VITALS: BP 123/77; PULSE 72; RESP 16; TEMP 36.6; O2SAT 98
--- NOTE | 2023-06-29 14:25 | PM.IMPN ---
Progress Note: A&P Assessment and Plan (1) Septic shock: Code(s): A41.9 - Sepsis, unspecified organism; R65.21 - Severe sepsis with septic shock Status: Acute (2) Acute UTI: Code(s): N39.0 - Urinary tract infection, site not specified Status: Acute Assessment and Plan: a (3) Decubitus ulcer, heel, left, unstageable: Code(s): L89.620 - Pressure ulcer of left heel, unstageable Status: Acute (4) Chronic paraplegia: Code(s): G82.20 - Paraplegia, unspecified Status: Acute (5) Paroxysmal A-fib: Code(s): I48.0 - Paroxysmal atrial fibrillation Status: Acute (6) DIA (acute kidney injury): Code(s): N17.9 - Acute kidney failure, unspecified Status: Acute Assessment and Plan: Plan Patient continues to complain of back pain more on the right side. She has been paraplegic since few months now had had surgery in her back at [facility]. Has a chronic Christy. Patient presented with generalized weakness and fatigue. She was found to have urinary retention over 1000 UA positive for UTI. Urine culture grew Proteus. IV antibiotics have been transitioned to oral Also had DIA with creatinine 1.7 on admission has resolved now CT abdomen pelvis on admission showed mild keith fullest cystic fluid hepatosplenomegaly and cirrhosis mild ascites moderate esophagitis/gastritis chronic interstitial lung disease moderate cystitis with findings suggestive of bilateral ascending infection mild fecal impaction. Repeat CT abdomen pelvis 06/28/2023 with cirrhosis of liver with portal venous hypertension small volume of ascites diffuse lung disease with mildly pulmonary edema superimposed on chronic interstitial lung disease small pleural effusions gallbladder distension which may be secondary to fasting. Chronic interstitial lung disease and cirrhosis findings were also present abdomen pelvis CT 06/2022. Renal ultrasound repeat on 06/26/2023 with mild right pelvicaliectasis. Continued pain on right side suspected related to her ongoing pyelonephritis. Will resume Zosyn. I also performed a right upper coarse breath sound to look at her gallbladder which revealed mildly distended gallbladder may be secondary to fasting as there is no gallbladder wall thickening or pericholecystic fluid. Gallbladder sludge was noted. Atrial fibrillation with rapid ventricular rate now controlled history of chronic AFib Septic shock on admission related to UTI with lactic acidosis: Recently required Levophed in the ICU. Treated with broad-spectrum antibiotics. Will bacteremia with Proteus antibiotic was switched to Bactrim . Resume Zosyn Anemia acute on chronic no obvious signs of bleeding however in setting of Eliquis will continue to monitor closely Mild thrombocytopenia UTI renal ultrasound with mild right pelvicaliectasis History of left thigh hematoma related to supratherapeutic INR Bacteremia with Proteus blood culture repeat on 06/22 negative History of aortic stenosis Left heel ulcer status post debridement 06/18/2023 Status post multilevel thoracic laminectomy from T6-T10 for evacuation of intradural hematoma on 04/22/2023. This is in the setting of supratherapeutic INR while patient was on warfarin. repeat thoracic MRI showed spinal cord enlargement and increased signal from T3-T12 worse from T7-T9 and with contrast segment at T8 and T9. 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 Cervical MRI and lumbar MRI with severe spondylosis. DVT prophylaxis on Eliquis Subjective Date/time seen: 06/29/23 14:25 Interval history: Patient continues to complain of back pain more on the right side. She has been paraplegic since few months now had had surgery in her back at [facility]. Has a chronic Christy. Patient presented with generalized weakness and fatigue. She was found to have urinary retention over 1000 UA positive for UTI. Urine c
[2023-06-29] MEDS: ACETAMINOPHEN 500 MG TABLET 1000 MG PO (21:18)
[2023-06-29 21:29] VITALS: BP 97/75; PULSE 89; RESP 18; TEMP 36.6; O2SAT 97
[2023-06-30] VITALS (7 sets, daily range): BP systolic 98–112; BP diastolic 56–69; PULSE 78–104; RESP 18–20; TEMP 36.4–36.7; O2SAT 97–100
[2023-06-30] MEDS: PIPERACILLN/TAZ 3.375GM/NS50ML 3.375 GM/50 ML BAG IVPB ×4 (01:05→17:49)
[2023-06-30 08:19] LABS: Basophils Percent Auto 0.6 % (0.2-1.2); Eosinophils Absolute Auto 0.4 K/mm3 (0-0.3); Eosinophils Percent Auto 7.3 % (0-4.4); Hematocrit 33.5 % (37.0-47.0); Hemoglobin 10.2 g/dL (12.0-15.0); Immature Granulocyte Absolute 0.03 K/mm3 (0.00-0.031); Immature Granulocyte Percent A 0.6 % (0-0.5); Lymphocytes Absolute Auto 1.08 K/mm3 (0.9-3.2); Lymphocytes Percent Auto 22.5 % (18.3-44.2); Mean Corpuscular HGB Conc 30.4 g/dl (32-36); Mean Corpuscular Hemoglobin 31.5 pg (26-34); Mean Corpuscular Volume 103.4 fl (80-100); Mean Platelet Volume 9.6 fl (7.4-10.4); Monocytes Absolute Auto 0.3 K/mm3 (0.1-0.6); Monocytes Percent Auto 5.8 % (2.6-8.5); Neutrophils Percent Auto 63.2 % (45.5-73.1); Platelet Count Result 138 k/mm3 (150-375); Red Blood Count 3.24 M/mm3 (4.2-5.4); Red Cell Distribution Width 15.1 % (11.5-14.5); White Blood Count 4.8 K/mm3 (4.5-10.0)
[2023-06-30 08:22] LABS: Alanine Aminotransferase 13 U/L (6-35); Albumin Level 3.4 g/dL (3.5-5.1); Alkaline Phosphatase 128 U/L (38-126); Anion Gap 10 mmol/L (8-16); Aspartate Amino Transferase 27 U/L (14-36); Bilirubin,Total 0.7 mg/dL (0.2-1.3); Blood Urea Nitrogen 32 mg/dL (7-17); Calcium 10.3 mg/dL (8.4-10.2); Carbon Dioxide 18 mmol/L (22-30); Chloride 111 mmol/L (98-107); Estimated CRCL calculation 36 ml/min; Estimated Glomerular Filt Rate 53; Glucose 89 mg/dL (65-110); Magnesium 1.7 mg/dL (1.6-2.3); Potassium 5.1 mmol/L (3.4-5.0); Sodium 139 mmol/L (137-145)
[2023-06-30] MEDS: TAMSULOSIN HCL 0.4 MG CAPSULE PO (09:26)
[2023-06-30] MEDS: LIDOCAINE 5% PATCH 1 PATCH TRANSDERM (09:26)
[2023-06-30] MEDS: ASCORBIC ACID 500 MG TABLET PO (09:26)
[2023-06-30] MEDS: SENNOSIDES 8.6 MG TABLET PO (09:26)
[2023-06-30] MEDS: GABAPENTIN 300 MG CAPSULE PO ×2 (09:26→17:49)
[2023-06-30] MEDS: APIXABAN 5 MG TABLET PO ×2 (09:26→20:22)
[2023-06-30] MEDS: PANTOPRAZOLE 40 MG TABLET PO ×2 (09:27→20:22)
[2023-06-30] MEDS: IPRATROPIUM BR 0.02% INH SOLN 0.5 MG/2.5 ML VIAL INHALATION (10:02)
[2023-06-30] MEDS: ALBUTEROL SULFATE NEB 2.5 MG/3 ML INH INHALATION (10:02)
--- NOTE | 2023-06-30 13:48 | PM.IMPN ---
Progress Note: A&P Assessment and Plan (1) Septic shock: Code(s): A41.9 - Sepsis, unspecified organism; R65.21 - Severe sepsis with septic shock Status: Acute (2) Acute UTI: Code(s): N39.0 - Urinary tract infection, site not specified Status: Acute (3) Decubitus ulcer, heel, left, unstageable: Code(s): L89.620 - Pressure ulcer of left heel, unstageable Status: Acute (4) Chronic paraplegia: Code(s): G82.20 - Paraplegia, unspecified Status: Acute (5) Paroxysmal A-fib: Code(s): I48.0 - Paroxysmal atrial fibrillation Status: Acute (6) DIA (acute kidney injury): Code(s): N17.9 - Acute kidney failure, unspecified Status: Acute Plan Patient continues to complain of back pain more on the right side. She has been paraplegic since few months now had had surgery in her back at [facility]. Has a chronic Christy. Patient presented with generalized weakness and fatigue. She was found to have urinary retention over 1000 UA positive for UTI. Urine culture grew Proteus. IV antibiotics have been transitioned to oral Also had DIA with creatinine 1.7 on admission has resolved now CT abdomen pelvis on admission showed mild keith fullest cystic fluid hepatosplenomegaly and cirrhosis mild ascites moderate esophagitis/gastritis chronic interstitial lung disease moderate cystitis with findings suggestive of bilateral ascending infection mild fecal impaction. Repeat CT abdomen pelvis 06/28/2023 with cirrhosis of liver with portal venous hypertension small volume of ascites diffuse lung disease with mildly pulmonary edema superimposed on chronic interstitial lung disease small pleural effusions gallbladder distension which may be secondary to fasting. Chronic interstitial lung disease and cirrhosis findings were also present abdomen pelvis CT 06/2022. Renal ultrasound repeat on 06/26/2023 with mild right pelvicaliectasis. Continued pain on right side suspected related to her ongoing pyelonephritis. Will resume Zosyn. I also performed a right upper coarse breath sound to look at her gallbladder which revealed mildly distended gallbladder may be secondary to fasting as there is no gallbladder wall thickening or pericholecystic fluid. Gallbladder sludge was noted. Atrial fibrillation with rapid ventricular rate now controlled history of chronic AFib Septic shock on admission related to UTI with lactic acidosis: Recently required Levophed in the ICU. Treated with broad-spectrum antibiotics. Will bacteremia with Proteus antibiotic was switched to Bactrim . Resume Zosyn Anemia acute on chronic no obvious signs of bleeding however in setting of Eliquis will continue to monitor closely Mild thrombocytopenia UTI renal ultrasound with mild right pelvicaliectasis History of left thigh hematoma related to supratherapeutic INR Bacteremia with Proteus blood culture repeat on 06/22 negative History of aortic stenosis Left heel ulcer status post debridement 06/18/2023 Status post multilevel thoracic laminectomy from T6-T10 for evacuation of intradural hematoma on 04/22/2023. This is in the setting of supratherapeutic INR while patient was on warfarin. repeat thoracic MRI showed spinal cord enlargement and increased signal from T3-T12 worse from T7-T9 and with contrast segment at T8 and T9. 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 Cervical MRI and lumbar MRI with severe spondylosis. DVT prophylaxis on Eliquis Subjective Date/time seen: 06/30/23 13:48 Interval history: Patient continues to complain of back pain more on the right side. She has been paraplegic since few months now had had surgery in her back at [facility]. Has a chronic Christy. Patient presented with generalized weakness and fatigue. She was found to have urinary retention over 1000 UA positive for UTI. Urine culture grew Proteus. IV antibiotics have been transitioned to oral
[2023-07-01] MEDS: PIPERACILLN/TAZ 3.375GM/NS50ML 3.375 GM/50 ML BAG IVPB ×5 (00:30→23:20)
[2023-07-01 06:00] VITALS: BP 125/52; PULSE 72; RESP 18; TEMP 36.5; O2SAT 100
[2023-07-01 07:57] LABS: Basophils Percent Auto 0.4 % (0.2-1.2); Eosinophils Absolute Auto 0.4 K/mm3 (0-0.3); Eosinophils Percent Auto 7.2 % (0-4.4); Hematocrit 31.3 % (37.0-47.0); Hemoglobin 9.6 g/dL (12.0-15.0); Immature Granulocyte Absolute 0.02 K/mm3 (0.00-0.031); Immature Granulocyte Percent A 0.4 % (0-0.5); Lymphocytes Absolute Auto 1.14 K/mm3 (0.9-3.2); Lymphocytes Percent Auto 22.1 % (18.3-44.2); Mean Corpuscular HGB Conc 30.7 g/dl (32-36); Mean Corpuscular Hemoglobin 31.6 pg (26-34); Mean Platelet Volume 9.6 fl (7.4-10.4); Monocytes Absolute Auto 0.3 K/mm3 (0.1-0.6); Monocytes Percent Auto 5.4 % (2.6-8.5); Neutrophils Absolute Auto 3.3 K/mm3 (1.3-6.7); Neutrophils Percent Auto 64.5 % (45.5-73.1); Platelet Count Result 145 k/mm3 (150-375); Red Blood Count 3.04 M/mm3 (4.2-5.4); Red Cell Distribution Width 15.6 % (11.5-14.5); White Blood Count 5.2 K/mm3 (4.5-10.0)
[2023-07-01 08:00] VITALS: PULSE 72; RESP 18; O2SAT 100
[2023-07-01 08:05] LABS: Potassium 4.9 mmol/L (3.4-5.0)
[2023-07-01 08:09] LABS: Alanine Aminotransferase 16 U/L (6-35); Albumin Level 3.6 g/dL (3.5-5.1); Alkaline Phosphatase 137 U/L (38-126); Anion Gap 11 mmol/L (8-16); Aspartate Amino Transferase 34 U/L (14-36); Bilirubin,Total 0.6 mg/dL (0.2-1.3); Blood Urea Nitrogen 43 mg/dL (7-17); Calcium 10.4 mg/dL (8.4-10.2); Carbon Dioxide 21 mmol/L (22-30); Chloride 107 mmol/L (98-107); Estimated CRCL calculation 28 ml/min; Estimated Glomerular Filt Rate 39; Glucose 89 mg/dL (65-110); Magnesium 1.8 mg/dL (1.6-2.3); Sodium 139 mmol/L (137-145)
[2023-07-01] MEDS: SODIUM CHLORIDE 0.9% IV 1,000 ML 50 ML IV CONT (09:00)
[2023-07-01] MEDS: GABAPENTIN 300 MG CAPSULE PO ×2 (09:33→17:21)
[2023-07-01] MEDS: LIDOCAINE 5% PATCH 1 PATCH TRANSDERM (09:33)
[2023-07-01] MEDS: TAMSULOSIN HCL 0.4 MG CAPSULE PO (09:33)
[2023-07-01] MEDS: APIXABAN 5 MG TABLET PO ×2 (09:33→21:03)
[2023-07-01] MEDS: ASCORBIC ACID 500 MG TABLET PO (09:33)
[2023-07-01] MEDS: SENNOSIDES 8.6 MG TABLET PO (09:33)
[2023-07-01] MEDS: PANTOPRAZOLE 40 MG TABLET PO ×2 (09:33→21:03)
[2023-07-01] MEDS: oxyCODONE/ACETAMINOPHEN (*CRX) 10-325 MG TABLET 1 TAB PO ×2 (09:37→13:17)
--- NOTE | 2023-07-01 10:43 | PCNFU ---
Nutrition Follow-Up Complete: Increased protein needs as related to wounds as evidenced by pressure ulcers reported. Goal: Adequate Intake of at least 75% of meals/supplements Patient is progressing towards goal. We will continue current goal. Pt current nutrition is Heart Healthy with Felix BID and Ensure compact BID. Last recorded weight is 82.3 kg, down from 83.6 kg on admit. Bowel Motility: +Bm reported 07/01 Labs Reviewed:Cr 1.3,BUN 43, GFR 39 Meds Noted:Senokot, Zosyn, Vit C, Eliquis, Protonix Skin: Right heel DTPI, sacrum DTPI, Left heel unstageable, buttocks stage II Additional Notes: Patient remains on a heart healthy diet. Oral Intake has been fair. She is consuming diet supplements of Ensure compact BID (220 kcals and 9 gms proteinb) and Felix BID (90 kcals and 2.5 gms protein, 7 gms of argenine and glutamine). Agree with diet orders. RD will monitor weight, skin, labs, meds, oral intake every 5 days.
[2023-07-01 14:00] VITALS: BP 130/86; PULSE 91; RESP 18; TEMP 36.2; O2SAT 98
--- NOTE | 2023-07-01 14:27 | PM.IMPN ---
Progress Note: A&P Assessment and Plan (1) Septic shock: Code(s): A41.9 - Sepsis, unspecified organism; R65.21 - Severe sepsis with septic shock Status: Acute (2) Acute UTI: Code(s): N39.0 - Urinary tract infection, site not specified Status: Acute (3) Decubitus ulcer, heel, left, unstageable: Code(s): L89.620 - Pressure ulcer of left heel, unstageable Status: Acute (4) Chronic paraplegia: Code(s): G82.20 - Paraplegia, unspecified Status: Acute (5) Paroxysmal A-fib: Code(s): I48.0 - Paroxysmal atrial fibrillation Status: Acute (6) DIA (acute kidney injury): Code(s): N17.9 - Acute kidney failure, unspecified Status: Acute Plan Patient continues to complain of back pain more on the right side. She has been paraplegic since few months now had had surgery in her back at [facility]. Has a chronic Christy. Patient presented with generalized weakness and fatigue. She was found to have urinary retention over 1000 UA positive for UTI. Urine culture grew Proteus. IV antibiotics have been transitioned to oral now back on Zosyn Also had DIA with creatinine 1.7 on admission has resolved now CT abdomen pelvis on admission showed mild keith fullest cystic fluid hepatosplenomegaly and cirrhosis mild ascites moderate esophagitis/gastritis chronic interstitial lung disease moderate cystitis with findings suggestive of bilateral ascending infection mild fecal impaction. Repeat CT abdomen pelvis 06/28/2023 with cirrhosis of liver with portal venous hypertension small volume of ascites diffuse lung disease with mildly pulmonary edema superimposed on chronic interstitial lung disease small pleural effusions gallbladder distension which may be secondary to fasting. Chronic interstitial lung disease and cirrhosis findings were also present abdomen pelvis CT 06/2022. Renal ultrasound repeat on 06/26/2023 with mild right pelvicaliectasis. Continued pain on right side suspected related to her ongoing pyelonephritis. Will resume Zosyn. I also performed a right upper coarse breath sound to look at her gallbladder which revealed mildly distended gallbladder may be secondary to fasting as there is no gallbladder wall thickening or pericholecystic fluid. Gallbladder sludge was noted. Persistent right upper quadrant pain will get gallbladder nuclear scan to further evaluate. Continue on IV Zosyn Atrial fibrillation with rapid ventricular rate now controlled history of chronic AFib Septic shock on admission related to UTI with lactic acidosis: Recently required Levophed in the ICU. Treated with broad-spectrum antibiotics. Will bacteremia with Proteus antibiotic was switched to Bactrim . Resume Zosyn Anemia acute on chronic no obvious signs of bleeding however in setting of Eliquis will continue to monitor closely Mild thrombocytopenia UTI renal ultrasound with mild right pelvicaliectasis History of left thigh hematoma related to supratherapeutic INR Bacteremia with Proteus blood culture repeat on 06/22 negative History of aortic stenosis Left heel ulcer status post debridement 06/18/2023 Status post multilevel thoracic laminectomy from T6-T10 for evacuation of intradural hematoma on 04/22/2023. This is in the setting of supratherapeutic INR while patient was on warfarin. repeat thoracic MRI showed spinal cord enlargement and increased signal from T3-T12 worse from T7-T9 and with contrast segment at T8 and T9. 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 Cervical MRI and lumbar MRI with severe spondylosis. DVT prophylaxis on Eliquis Subjective Date/time seen: 07/01/23 14:27 Interval history: Patient continues to complain of back pain more on the right side. She has been paraplegic since few months now had had surgery in her back at [facility]. Has a chronic Christy. Patient presented with generalized weakness and fatigue. She was found
[2023-07-01 22:00] VITALS: BP 106/62; PULSE 74; RESP 18; TEMP 36.8; O2SAT 98
[2023-07-02] MEDS: oxyCODONE/ACETAMINOPHEN (*CRX) 10-325 MG TABLET 1 TAB PO ×2 (01:52→14:59)
[2023-07-02] MEDS: PIPERACILLN/TAZ 3.375GM/NS50ML 3.375 GM/50 ML BAG IVPB ×2 (04:57→11:16)
[2023-07-02 06:00] VITALS: BP 94/51; PULSE 88; RESP 20; TEMP 36.9; O2SAT 100
[2023-07-02 06:53] LABS: Estimated CRCL calculation 35 ml/min; Estimated Glomerular Filt Rate 43
[2023-07-02] MEDS: APIXABAN 5 MG TABLET PO ×2 (09:38→21:18)
[2023-07-02] MEDS: PANTOPRAZOLE 40 MG TABLET PO ×2 (09:38→21:18)
[2023-07-02] MEDS: SENNOSIDES 8.6 MG TABLET PO (09:38)
[2023-07-02] MEDS: GABAPENTIN 300 MG CAPSULE PO ×2 (09:38→17:42)
[2023-07-02] MEDS: ASCORBIC ACID 500 MG TABLET PO (09:38)
[2023-07-02] MEDS: LIDOCAINE 5% PATCH 1 PATCH TRANSDERM (09:39)
[2023-07-02] MEDS: TAMSULOSIN HCL 0.4 MG CAPSULE PO (09:39)
--- NOTE | 2023-07-02 15:05 | PM.IMPN ---
Progress Note: A&P Assessment and Plan (1) Septic shock: Code(s): A41.9 - Sepsis, unspecified organism; R65.21 - Severe sepsis with septic shock Status: Acute (2) Acute UTI: Code(s): N39.0 - Urinary tract infection, site not specified Status: Acute (3) Decubitus ulcer, heel, left, unstageable: Code(s): L89.620 - Pressure ulcer of left heel, unstageable Status: Acute (4) Chronic paraplegia: Code(s): G82.20 - Paraplegia, unspecified Status: Acute (5) Paroxysmal A-fib: Code(s): I48.0 - Paroxysmal atrial fibrillation Status: Acute (6) DIA (acute kidney injury): Code(s): N17.9 - Acute kidney failure, unspecified Status: Acute Plan Patient continues to complain of back pain more on the right side. She has been paraplegic since few months now had had surgery in her back at [facility]. Has a chronic Christy. Patient presented with generalized weakness and fatigue. She was found to have urinary retention over 1000 UA positive for UTI. Urine culture grew Proteus. IV antibiotics have been transitioned to oral now back on Zosyn Also had DIA with creatinine 1.7 on admission has resolved now CT abdomen pelvis on admission showed mild keith fullest cystic fluid hepatosplenomegaly and cirrhosis mild ascites moderate esophagitis/gastritis chronic interstitial lung disease moderate cystitis with findings suggestive of bilateral ascending infection mild fecal impaction. Repeat CT abdomen pelvis 06/28/2023 with cirrhosis of liver with portal venous hypertension small volume of ascites diffuse lung disease with mildly pulmonary edema superimposed on chronic interstitial lung disease small pleural effusions gallbladder distension which may be secondary to fasting. Chronic interstitial lung disease and cirrhosis findings were also present abdomen pelvis CT 06/2022. Renal ultrasound repeat on 06/26/2023 with mild right pelvicaliectasis. Continued pain on right side suspected related to her ongoing pyelonephritis. Will resume Zosyn. I also performed a right upper coarse breath sound to look at her gallbladder which revealed mildly distended gallbladder may be secondary to fasting as there is no gallbladder wall thickening or pericholecystic fluid. Gallbladder sludge was noted. Persistent right upper quadrant pain, gallbladder nuclear scan to further evaluate came back negative. Continue on IV Zosyn which will be switched to oral augmentin for few more days Atrial fibrillation with rapid ventricular rate now controlled history of chronic AFib Septic shock on admission related to UTI with lactic acidosis: Recently required Levophed in the ICU. Treated with broad-spectrum antibiotics. Will bacteremia with Proteus antibiotic was switched to Bactrim . Resumed zosyn. will switch to augmentin to finish the course. HIDA scan came back negative. Anemia acute on chronic no obvious signs of bleeding however in setting of Eliquis will continue to monitor closely Mild thrombocytopenia UTI renal ultrasound with mild right pelvicaliectasis History of left thigh hematoma related to supratherapeutic INR Bacteremia with Proteus blood culture repeat on 06/22 negative History of aortic stenosis Left heel ulcer status post debridement 06/18/2023 Status post multilevel thoracic laminectomy from T6-T10 for evacuation of intradural hematoma on 04/22/2023. This is in the setting of supratherapeutic INR while patient was on warfarin. repeat thoracic MRI showed spinal cord enlargement and increased signal from T3-T12 worse from T7-T9 and with contrast segment at T8 and T9. 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 Cervical MRI and lumbar MRI with severe spondylosis. DVT prophylaxis on Eliquis Subjective Date/time seen: 07/02/23 15:05 Interval history: Patient continues to complain of back pain more on the right side. She has been paraplegic since few months n
[2023-07-02] MEDS: ACETAMINOPHEN 500 MG TABLET 1000 MG PO (17:42)
[2023-07-02 21:03] VITALS: BP 103/76; PULSE 106; RESP 18; TEMP 36.2; O2SAT 98
[2023-07-02] MEDS: AMOXICILLIN/CLAVULANATE K 875-125 MG TAB 1 TABLET PO (21:18)
[2023-07-03 06:00] VITALS: BP 94/58; PULSE 98; RESP 18; TEMP 36.9; O2SAT 100
[2023-07-03 06:21] LABS: Basophils Percent Auto 0.5 % (0.2-1.2); Eosinophils Absolute Auto 0.2 K/mm3 (0-0.3); Eosinophils Percent Auto 5.8 % (0-4.4); Hematocrit 30.9 % (37.0-47.0); Hemoglobin 9.6 g/dL (12.0-15.0); Immature Granulocyte Absolute 0.01 K/mm3 (0.00-0.031); Immature Granulocyte Percent A 0.3 % (0-0.5); Lymphocytes Absolute Auto 1.56 K/mm3 (0.9-3.2); Mean Corpuscular HGB Conc 31.1 g/dl (32-36); Mean Platelet Volume 9.8 fl (7.4-10.4); Monocytes Absolute Auto 0.3 K/mm3 (0.1-0.6); Monocytes Percent Auto 6.5 % (2.6-8.5); Neutrophils Absolute Auto 1.9 K/mm3 (1.3-6.7); Neutrophils Percent Auto 47.9 % (45.5-73.1); Platelet Count Result 118 k/mm3 (150-375); Red Cell Distribution Width 15.7 % (11.5-14.5)
[2023-07-03 06:36] LABS: Alanine Aminotransferase 17 U/L (6-35); Albumin Level 3.3 g/dL (3.5-5.1); Alkaline Phosphatase 147 U/L (38-126); Anion Gap 9 mmol/L (8-16); Aspartate Amino Transferase 30 U/L (14-36); Bilirubin,Total 0.5 mg/dL (0.2-1.3); Blood Urea Nitrogen 39 mg/dL (7-17); Carbon Dioxide 22 mmol/L (22-30); Chloride 108 mmol/L (98-107); Estimated CRCL calculation 38 ml/min; Estimated Glomerular Filt Rate 47; Glucose 86 mg/dL (65-110); Magnesium 1.9 mg/dL (1.6-2.3); Sodium 139 mmol/L (137-145)
[2023-07-03] MEDS: AMOXICILLIN/CLAVULANATE K 875-125 MG TAB 1 TABLET PO ×2 (08:12→21:40)
[2023-07-03] MEDS: APIXABAN 5 MG TABLET PO ×2 (08:12→21:40)
[2023-07-03] MEDS: TAMSULOSIN HCL 0.4 MG CAPSULE PO (08:12)
[2023-07-03] MEDS: oxyCODONE/ACETAMINOPHEN (*CRX) 10-325 MG TABLET 1 TAB PO ×2 (08:12→22:20)
[2023-07-03] MEDS: GABAPENTIN 300 MG CAPSULE PO ×2 (08:13→17:42)
[2023-07-03] MEDS: ASCORBIC ACID 500 MG TABLET PO (08:13)
[2023-07-03] MEDS: PANTOPRAZOLE 40 MG TABLET PO ×2 (08:13→21:40)
[2023-07-03] MEDS: LIDOCAINE 5% PATCH 1 PATCH TRANSDERM (08:14)
--- NOTE | 2023-07-03 10:00 | PM.IMPN ---
Progress Note: A&P Assessment and Plan (1) Septic shock: Code(s): A41.9 - Sepsis, unspecified organism; R65.21 - Severe sepsis with septic shock Status: Acute (2) Acute UTI: Code(s): N39.0 - Urinary tract infection, site not specified Status: Acute (3) Decubitus ulcer, heel, left, unstageable: Code(s): L89.620 - Pressure ulcer of left heel, unstageable Status: Acute (4) Chronic paraplegia: Code(s): G82.20 - Paraplegia, unspecified Status: Acute (5) Paroxysmal A-fib: Code(s): I48.0 - Paroxysmal atrial fibrillation Status: Acute (6) DIA (acute kidney injury): Code(s): N17.9 - Acute kidney failure, unspecified Status: Acute Plan Patient continues to complain of back pain more on the right side. She has been paraplegic since few months now had had surgery in her back at [facility]. Has a chronic Christy. Patient presented with generalized weakness and fatigue. Complicated UTI, urinary retention, pyelonephritis She was found to have urinary retention over 1000 UA positive for UTI. Urine culture grew Proteus. Renal ultrasound repeat on 06/26/2023 with mild right pelvicaliectasis. Continued pain on right side suspected related to her ongoing pyelonephritis. was on IV Zosyn switched to oral augmentin for few more days Also had DIA with creatinine 1.7 on admission has resolved now CT abdomen pelvis on admission showed mild keith fullest cystic fluid hepatosplenomegaly and cirrhosis mild ascites moderate esophagitis/gastritis chronic interstitial lung disease moderate cystitis with findings suggestive of bilateral ascending infection mild fecal impaction. Repeat CT abdomen pelvis 06/28/2023 with cirrhosis of liver with portal venous hypertension small volume of ascites diffuse lung disease with mildly pulmonary edema superimposed on chronic interstitial lung disease small pleural effusions gallbladder distension which may be secondary to fasting. Chronic interstitial lung disease and cirrhosis findings were also present abdomen pelvis CT 06/2022. HIDA scan came back negative. Atrial fibrillation with rapid ventricular rate now controlled history of chronic AFib Septic shock on admission related to UTI with lactic acidosis: Recently required Levophed in the ICU. Treated with broad-spectrum antibiotics. bacteremia with Proteus antibiotic was switched to Bactrim . Resumed zosyn. switch to augmentin to finish the course. Anemia acute on chronic no obvious signs of bleeding however in setting of Eliquis will continue to monitor closely Mild thrombocytopenia History of aortic stenosis Left heel ulcer status post debridement 06/18/2023 Status post multilevel thoracic laminectomy from T6-T10 for evacuation of intradural hematoma on 04/22/2023. This is in the setting of supratherapeutic INR while patient was on warfarin. repeat thoracic MRI showed spinal cord enlargement and increased signal from T3-T12 worse from T7-T9 and with contrast segment at T8 and T9. 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 Cervical MRI and lumbar MRI with severe spondylosis. DVT prophylaxis on Eliquis Subjective Date/time seen: 07/03/23 10:00 Interval history: Patient still has pain in the right upper quadrant pain no fevers chills. Exam Narrative: General: elderly female in no acute distress HEENT:? pupils are equal and reactive, sclera is clear, moist oral mucosa Neck:? supple Respiratory:? coarse breath sounds bilaterally, adequate air entry, no wheezing Cardiac:? S1-S2 is normal, regular rate and rhythm, systolic murmur 2/6 on the right upper sternal border Abdomen:? obese, soft, right upper quadrant tenderness, nondistended, hypoactive bowel sounds Extremities:? bilateral lower extremity edema, left heel ulcer in dressing Neuro:? patient is awake, alert, oriented to place and per
[2023-07-03] MEDS: ACETAMINOPHEN 500 MG TABLET 1000 MG PO (10:41)
[2023-07-03 14:00] VITALS: BP 104/75; PULSE 74; RESP 20; TEMP 36.5; O2SAT 99
--- NOTE | 2023-07-03 15:38 | WPDONCPN ---
Progress Note: A/P (1) Anemia Qualifiers: Code(s): D64.9 - Anemia, unspecified Status: Acute - Additional Plan Anemia: I have seen this patient for anemia and thrombocytopenia. Labs notable today with stable hemoglobin 9.6, Hct 30.9, Plt 118,000, Creatinine 1.10, Iron 50, TIBC 191, % sat 26, ferritin 129. She has received a Procrit injection and iron sucrose on 06/26 for anemia of CKD. Kidney function is now improving and follows with Dr. Lundberg. Recent RUQ shows liver cirrhosis and gallbladder sludge. Her worsening thrombocytopenia could be due to liver cirrhosis, underlying infection, or medication induced thrombocytopenia. I have again, told patient to follow up in office to evaluate thrombocytopenia and anemia further. This patient's plan of care has been reviewed and approved by Dr. Catracho Patel. If you have any questions regarding this hematology or oncology evaluation, feel free to contact us for further assistance.?Thank you for allowing us to be a part of this patient's care. Jeanie Waite, FORMS DESIGNER 07/03/23;1548 - Time Spent With Patient Total time spent is greater than 50% in coordination of care (as documented) at patient's floor/unit and/or counseling patient: 15 - 25 minutes Subjective Interval history: Patient denies any bleeding in her stool or urine. She has complained of upper right quadrant pain. Denies nausea or vomiting. Denies fever, chills, shortness of breath, or heart palpitations. Review of Systems - Review of Systems All systems reviewed & are unremarkable except as noted in HPI and bel - Neurologic Reports system reviewed and no additional complaints, except as documented, Denies tremor(s) Exam Vital signs: Temp Pulse Resp BP Pulse Ox O2 Del Method O2 Flow Rate 36.5 C 74 20 104/75 99 Room Air 1 07/03/23 14:00 07/03/23 14:00 07/03/23 14:00 07/03/23 14:00 07/03/23 14:00 07/03/23 08:00 06/20/23 01:26 FiO2 21 07/01/23 08:00 - Constitutional no acute distress - Routine HEENT Exam Eye: Present: PERRL ENT: Present: mucous membranes moist - Routine Respiratory Exam Comments: coarse - Routine Cardiovascular Exam Cardiovascular: Present: RRR, murmur - Routine Abdominal Exam Present: tenderness (RUQ) - Routine Extremities Exam Comments: bilateral extremity edema - Routine Skin Exam Comments: decubitus ulcer - Routine Neurological Exam Present: alert, oriented X3 parapalegic PN: Objective Data - Labs CBC & Chem 7: 07/03/23 06:00 07/03/23 06:00 Labs: Laboratory Results - last 24 hr 07/03/23 06:00 WBC 4.0 L RBC 3.00 L Hgb 9.6 L Hct 30.9 L MCV 103.0 H MCH 32.0 MCHC 31.1 L RDW 15.7 H Plt Count 118 L MPV 9.8 Immature Gran % (Auto) 0.3 Neut % (Auto) 47.9 Lymph % (Auto) 39.0 Lamar % (Auto) 6.5 Eos % (Auto) 5.8 H Baso % (Auto) 0.5 Lymph # (Auto) 1.56 Lamar # (Auto) 0.3 Eos # (Auto) 0.2 Baso # (Auto) 0.0 Abs Immat Gran (auto) 0.01 Absolute Neuts (auto) 1.9 Absolute Nucleated RBC 0.0 Nucleated RBC % 0.0 Sodium 139 Potassium 4.0 Chloride 108 H Carbon Dioxide 22 Anion Gap 9 BUN 39 H Creatinine 1.10 H Estim Creat Clear Calc 38 Estimated GFR 47 L Glucose 86 Calcium 10.0 Magnesium 1.9 Total Bilirubin 0.5 AST 30 ALT 17 Alkaline Phosphatase 147 H Total Protein 7.0 Albumin 3.3 L
[2023-07-03 19:57] VITALS: BP 95/69; PULSE 120; RESP 16; TEMP 36.4; O2SAT 98
[2023-07-03 20:00] VITALS: PULSE 120; RESP 16; O2SAT 98
[2023-07-04 05:34] VITALS: BP 94/64; PULSE 79; RESP 16; TEMP 36.3; O2SAT 99
[2023-07-04] MEDS: LIDOCAINE 5% PATCH 1 PATCH TRANSDERM (08:31)
[2023-07-04] MEDS: oxyCODONE/ACETAMINOPHEN (*CRX) 10-325 MG TABLET 1 TAB PO (08:31)
[2023-07-04] MEDS: SENNOSIDES 8.6 MG TABLET PO (08:32)
[2023-07-04] MEDS: PANTOPRAZOLE 40 MG TABLET PO (08:32)
[2023-07-04] MEDS: ASCORBIC ACID 500 MG TABLET PO (08:32)
[2023-07-04] MEDS: AMOXICILLIN/CLAVULANATE K 875-125 MG TAB 1 TABLET PO (08:32)
[2023-07-04] MEDS: TAMSULOSIN HCL 0.4 MG CAPSULE PO (08:32)
[2023-07-04] MEDS: GABAPENTIN 300 MG CAPSULE PO (08:32)
[2023-07-04] MEDS: APIXABAN 5 MG TABLET PO (08:32)
--- NOTE | 2023-07-04 09:49 | PM.DS ---
DS: Admitting Diagnosis Discharge Date 07/04/23 Admitting Diagnosis acute pyelonephritis DS: Discharge Diagnosis Discharge Diagnosis (1) Bilateral renal stones: Code(s): N20.0 - Calculus of kidney Status: Acute (2) Pyelonephritis: Code(s): N12 - Tubulo-interstitial nephritis, not specified as acute or chronic Status: Acute (3) CHF (congestive heart failure): Code(s): I50.9 - Heart failure, unspecified Status: Acute (4) Aortic stenosis: Code(s): I35.0 - Nonrheumatic aortic (valve) stenosis Status: Acute (5) Septic shock: Code(s): A41.9 - Sepsis, unspecified organism; R65.21 - Severe sepsis with septic shock Status: Acute (6) Sepsis: Code(s): A41.9 - Sepsis, unspecified organism Status: Acute (7) Acute UTI: Code(s): N39.0 - Urinary tract infection, site not specified Status: Acute (8) Decubitus ulcer, heel, left, unstageable: Code(s): L89.620 - Pressure ulcer of left heel, unstageable Status: Acute (9) Decubitus ulcer, infected: Code(s): L89.90 - Pressure ulcer of unspecified site, unspecified stage; L08.9 - Local infection of the skin and subcutaneous tissue, unspecified Status: Acute (10) Chronic paraplegia: Code(s): G82.20 - Paraplegia, unspecified Status: Acute (11) Atrial fibrillation with RVR: Code(s): I48.91 - Unspecified atrial fibrillation Status: Acute (12) Essential (primary) hypertension: Code(s): I10 - Essential (primary) hypertension Status: Acute (13) Loose stools: Code(s): R19.5 - Other fecal abnormalities Status: Acute (14) 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 She has been paraplegic since few months now had had surgery in her back at [facility].? Has a chronic Christy. Patient presented with generalized weakness and fatigue.? Complicated UTI, urinary retention, pyelonephritis She was found to have urinary retention over 1000 UA positive for UTI.? Urine culture grew Proteus.? Renal ultrasound repeat on 06/26/2023 with mild right pelvicaliectasis.? Continued pain on right side suspected related to her ongoing pyelonephritis. was on? IV Zosyn switched to oral augmentin for few more days 07/04: complete augmentin till 07/07 Also had DIA with creatinine 1.7 on admission has resolved now ? CT abdomen pelvis on admission showed mild keith fullest cystic fluid hepatosplenomegaly and cirrhosis mild ascites moderate esophagitis/gastritis chronic interstitial lung disease moderate cystitis with findings suggestive of bilateral ascending infection mild fecal impaction.? Repeat CT abdomen pelvis 06/28/2023 with cirrhosis of liver with portal venous hypertension small volume of ascites diffuse lung disease with mildly pulmonary edema superimposed on chronic interstitial lung disease small pleural effusions gallbladder distension which may be secondary to fasting.? Chronic interstitial lung disease and cirrhosis findings were also present abdomen pelvis CT 06/2022.? ?HIDA scan came back negative.? Atrial fibrillation with rapid ventricular rate now controlled history of chronic AFib 07/04/23: decrease metoprolol to 12.5 mg bid due to hypotension Septic shock on admission related to UTI with lactic acidosis:? Recently required Levophed in the ICU.? Treated with broad-spectrum antibiotics.? ?bacteremia with Proteus antibiotic was switched to Bactrim .? Resumed zosyn. ?switch to augmentin to finish the course. Anemia acute on chronic no obvious signs of bleeding however in setting of Eliquis will continue to monitor closely Mild thrombocytopenia History of aortic stenosis Left heel ulcer status post debridement 06/18/2023 Status post multilevel thoracic laminectomy f
== END 2023-07-04 11:35 | disposition home health service (06) | DRG 673 ==
LOC: ANHED 22:39 → ANHICU 06-18 01:50 → ANH3MEDSUR 06-21 18:58
PROVIDERS: Family Medicine; Internal Medicine; Nurse Practitioner Adult Health; Admitting Provider Internal Medicine; Emergency Provider Emergency Medicine; PCP Family Medicine; Visit Provider Internal Medicine
DX: T83.511A Infection and inflammatory reaction due to indwelling urethral catheter, initial encounter (principal); A41.59 Other Gram-negative sepsis; R65.21 Severe sepsis with septic shock; G82.20 Paraplegia, unspecified; J84.9 Interstitial pulmonary disease, unspecified; I13.0 Hypertensive heart and chronic kidney disease with heart failure and stage 1 through stage 4 chronic kidney disease, or unspecified chronic kidney disease; I50.32 Chronic diastolic (congestive) heart failure; N17.9 Acute kidney failure, unspecified; K76.6 Portal hypertension; I85.10 Secondary esophageal varices without bleeding; N10 Acute pyelonephritis; T83.091A Other mechanical complication of indwelling urethral catheter, initial encounter; N39.0 Urinary tract infection, site not specified; L89.152 Pressure ulcer of sacral region, stage 2; L89.620 Pressure ulcer of left heel, unstageable; L89.611 Pressure ulcer of right heel, stage 1; Z66 Do not resuscitate; I35.0 Nonrheumatic aortic (valve) stenosis; R33.9 Retention of urine, unspecified; I48.0 Paroxysmal atrial fibrillation; Z79.01 Long term (current) use of anticoagulants; K74.60 Unspecified cirrhosis of liver; N18.30 Chronic kidney disease, stage 3 unspecified; Z96.652 Presence of left artificial knee joint; N20.0 Calculus of kidney; D69.59 Other secondary thrombocytopenia; D64.9 Anemia, unspecified; M47.812 Spondylosis without myelopathy or radiculopathy, cervical region; M47.816 Spondylosis without myelopathy or radiculopathy, lumbar region; M47.814 Spondylosis without myelopathy or radiculopathy, thoracic region
CPT/HCPCS: 36415; 71045; 72146; 72148; 72156; 72157; 73630; 74018; 74177; 76705; 76775; 78226; 80048; 80053; 81001; 82565; 82607; 82728; 82746; 82948; 83540; 83550; 83605; 83690; 83735; 84100; 84484; 85025; 85027; 85055; 85610; 85730; 87040; 87077; 87086; 87088; 87186; 87637; 87641; 93005; 94640; 96365; 96367; 99285; A9270; A9537; A9577; C1751; J0696; J1160; J1650; J1756; J2270; J2543; J3370; J3475; J7030; P9047; Q5106; Q9967